=== PATIENT | male | born 1935 | race Caucasian/White ===

== ENCOUNTER 2017-08-27 16:57 | Observation (INO) | payer MEDICARE, BC ==
--- NOTE | 2017-08-27 18:47 | EDM.PDOC ---
ED HPI GENERAL MEDICAL PROBLEM - General Chief Complaint: General Stated Complaint: ACCIDENT [facility]IA [facility] Time Seen by Provider: 08/27/17 18:05 Source of Information: Reports: Patient, EMS, Family History Limitations: Reports: No Limitations - History of Present Illness INITIAL COMMENTS - FREE TEXT/NARRATIVE: 81-year-old male with chronic weakness, worsening with frequent falls and confusion. Today he slipped out of his chair and couldn't get up, his asked him some questions like his birthdate and what day it was and he seemed more confused than usual and more weak so she called the ambulance. He doesn't have any specific complaints and wants to go home but she is worried about taking him home because of his weakness. He just had his pro time checked in the last 48 hours and there was no significant concerns. He denies any nausea or vomiting, shortness of breath, his only physical complaint is his persistent lower extremity edema. He claims he still gets around fine with a walker. Onset: Gradual (According to the his symptoms have been worsening over 3 weeks) Severity: Moderate Associated Symptoms: Reports: Weakness. Denies: Chest Pain, Cough, Fever/Chills , Headaches - Related Data Allergies Allergy/AdvReac Type Severity Reaction Status Date / Time ticlopidine HCl [From Ticlid] Allergy Hives Verified 02/04/16 00:11 atorvastatin calcium AdvReac Muscle Verified 02/04/16 00:11 [From Lipitor] Aches quinapril HCl [From Accupril] AdvReac Cough Verified 02/04/16 00:11 Home Meds: Home Meds Albuterol Sulfate [Proair Hfa] 2 puff IH Q6HR 03/09/13 [History] Furosemide [Lasix] 20 mg PO DAILY 03/09/13 [History] Losartan [Cozaar] 25 mg PO DAILY 03/09/13 [History] Metoprolol Succinate [Toprol XL] 25 mg PO DAILY 03/09/13 [History] Nitroglycerin [Nitrostat] 0.4 mg SL ASDIRECTED 03/09/13 [History] Oxybutynin Chloride [Ditropan Xl] 5 mg PO DAILY 03/09/13 [History] oxyCODONE HCl/Acetaminophen [Percocet 10-325 mg Tablet] 1 tab PO Q6H PRN 01/24/ 16 [History] Aspirin 325 mg PO DAILY 09/16/15 [History] Meclizine [Antivert] 25 mg PO TID PRN 09/16/15 [History] Pantoprazole [ProTONIX] 40 mg PO ACBREAKFAST #30 tab.cr 10/02/15 [Rx] Magnesium Hydroxide [Milk of Magnesia] 30 ml PO BID 02/03/16 [History] Polyethylene Glycol 3350 [MiraLAX] 17 gm PO DAILY 02/03/16 [History] Warfarin [Coumadin] 4 mg PO DAILY 02/04/16 [History] Warfarin [Coumadin] 6 mg PO ASDIRECTED 08/27/17 [History] Past Medical History HEENT History: Reports: Other (See Below) Other HEENT History: pt wears reading glasses Cardiovascular History: Reports: Aneurysm, Bypass, High Cholesterol, Hypertension, [place], Pacemaker, Stents Respiratory History: Reports: Asthma, COPD Gastrointestinal History: Reports: GERD, Hiatal Hernia Genitourinary History: Reports: Renal Disease, Urinary Incontinence Musculoskeletal History: Reports: Back Pain, Chronic, Other (See Below) Other Musculoskeletal History: nerv stimulator implanted in back. Neurological History: Reports: TIA Other Neuro History: new onset of dementia Psychiatric History: Reports: Dementia Other Psychiatric History: states passed all memory tests Endocrine/Metabolic History: Reports: Diabetes, Type II Hematologic History: Reports: None Dermatologic History: Reports: Eczema - Infectious Disease History Infectious Disease History: Reports: Chicken Pox, Measles, Mumps Other Infectious Disease History: unable to obtain at this time - Past Surgical History Cardiovascular Surgical History: Reports: Coronary Artery Bypass Neurological Surgical History: Reports: Vertebroplasty Social & Family History - Family History Family Medical History: Noncontributory Cardiac: Reports: [place] Musculoskeletal: Reports: Arthritis Neurological: Reports: Neuropathy, Diabetic Endocrine/Metabolic: Reports: Diabetes, type II - Tobacco Use Smoking Status *Q: Never Smoker Years of Tobacco use: 25 Packs/Tins Daily: 1 Used Tobacco, but Quit: No Month/Year Tobacco Last Used: 1985 Second Hand Smoke Exposure: Yes - Caffeine Use Caffeine Use: Reports: None - Alcohol Use Days Per Week of Alcohol Use: 7 Number of Drinks Per Day: 1 Total Drinks Per Week: 7 - Recreational Drug Use Recreational Drug Use: No - Living Situation & Occupation Living situation: Reports: Extended Care Facility Occupation: Disabled ED ROS GENERAL - Review of Systems Review Of Systems: See Below Constitutional: Reports: Malaise, Weakness. Denies: Fever, Chills HEENT: Reports: No Symptoms Respiratory: Denies: Cough Cardiovascular: Denies: Chest Pain, Palpitations : Reports: No Symptoms Skin: Reports: Bruising (Patient has lots of bruising on his extremities, especially the arms. Lots of excoriations on the lower legs.) Neurological: Reports: Weakness (Diffuse weakness is present but no asymmetric limb weakness) Psychiatric: Reports: No Symptoms ED EXAM, GENERAL - Physical Exam Exam: See Below Exam Limited By: No Limitations General Appearance: Alert, No Apparent Distress Eye Exam: Bilateral Eye: EOMI Head: Atraumatic Respiratory/Chest: No Respiratory Distress Cardiovascular: Regular Rate, Rhythm GI/Abdominal: Soft, Non-Tender, Other (Somewhat distended appearing abdomen with prominent cutaneous veins. Small asymptomatic umbilical hernia is present) Extremities: Pedal Edema (2+ pitting edema both lower extremities) Neurological: Alert, Oriented Psychiatric: Normal Affect, Normal Mood Skin Exam: Warm, Dry, Other (Numerous bruises on the arms, excoriations on the lower extremities) Course - Vital Signs Last Recorded V/S: Last Vital Signs Temp 97.3 F 08/27/17 21:38 Pulse 61 08/27/17 21:38 Resp 16 08/27/17 21:38 BP 147/63 H 08/27/17 21:38 Pulse Ox 97 08/27/17 21:38 - Orders/Labs/Meds Orders: Active Orders 24 hr Category Date Time Status Head wo Cont [CT] Stat Exams 08/27/17 18:36 Taken UA W/MICROSCOPIC [URIN] Urgent Lab 08/27/17 18:22 Ordered Medication Orders Acetaminophen (Tylenol) 650 mg PO Q4H PRN PRN Reason: Pain (Mild 1-3)/fever Albuterol (Ventolin Hfa) 0 gm INH Q4H PRN PRN Reason: Dyspnea Albuterol/Ipratropium (Duoneb 3.0-0.5 Mg/3 Ml) 3 ml NEB QIDRT MELODY Last Admin: 08/27/17 21:40 Dose: Not Given Aspirin (Ecotrin) 325 mg PO DAILY MELODY Furosemide (Lasix) 40 mg IVPUSH NOW ONE Stop: 08/28/17 08:01 Losartan Potassium (Cozaar) 25 mg PO DAILY MELODY Magnesium Hydroxide (Milk Of Magnesia) 30 ml PO Q12H PRN PRN Reason: Constipation Metoprolol Succinate (Toprol Xl) 25 mg PO DAILY [facility] Ondansetron HCl (Zofran) 4 mg IV Q4H PRN PRN Reason: Nausea/Vomiting Oxybutynin Chloride (Oxybutynin) 2.5 mg PO BID [facility] Oxycodone/Acetaminophen (Percocet 325-10 Mg) 1 tab PO Q6H PRN PRN Reason: Pain Pantoprazole Sodium (Protonix) 40 mg PO ACBREAKFAST [facility] Polyethylene Glycol (Miralax) 17 gm PO DAILY [facility] Senna/Docusate Sodium (Senna Plus) 1 tab PO BID PRN PRN Reason: Constipation Sodium Chloride (Saline Flush) 10 ml FLUSH ASDIRECTED PRN PRN Reason: Keep Vein Open Warfarin Sodium (Coumadin) 4 mg PO DAILY [facility] Labs: Laboratory Tests 08/27/17 08/27/17 08/27/17 Range/Units 18:22 18:27 18:27 WBC 4.0 L (4.5-11.0) K/uL RBC 3.94 L (4.30-5.90) M/uL Hgb 13.8 D (12.0-15.0) g/dL Hct 39.7 L (40.0-54.0) % MCV 101 H (80-98) fL MCH 35 H (27-31) pg MCHC 35 (32-36) % Plt Count 97 L (150-400) K/uL Neut % (Auto) 64 (36-66) % Lymph % (Auto) 22 L (24-44) % [place] % (Auto) 9 H (2-6) % Eos % (Auto) 3 (2-4) % Baso % (Auto) 1 (0-1) % Sodium 144 (140-148) mmol/L Potassium 3.4 L (3.6-5.2) mmol/L Chloride 105 (100-108) mmol/L Carbon Dioxide 26 (21-32) mmol/L Anion Gap 16.4 H (5.0-14.0) mmol/L BUN 17 (7-18) mg/dL Creatinine 1.5 H (0.8-1.3) mg/dL Est Cr Clr Drug Dosing 38.63 mL/min Estimated GFR (MDRD) 45 L (>60) Glucose 83 (74-106) mg/dL Calcium 7.4 L (8.5-10.1) mg/dL Total Bilirubin 1.9 H D (0.2-1.0) mg/dL AST 79 H D (15-37) U/L ALT 43 D (12-78) U/L Alkaline Phosphatase 191 H (46-116) U/L Total Protein 7.2 (6.4-8.2) g/dL Albumin 2.1 L (3.4-5.0) g/dL Globulin 5.1 H (2.3-3.5) g/dL Albumin/Globulin Ratio 0.4 L (1.2-2.2) Urine Color Yellow Urine Appearance Clear Urine pH 5.0 (4.5-8.0) Ur Specific [place] 1.015 (1.008-1.030) Urine Protein Negative (NEGATIVE) mg/dL Urine Glucose (UA) Normal (NEGATIVE) mg/dL Urine Ketones Negative (NEGATIVE) mg/dL Urine Occult Blood Negative (NEGATIVE) Urine Nitrite Negative (NEGAITVE) Urine Bilirubin Negative (NEGATIVE) Urine Urobilinogen 1 (NORMAL) mg/dL Ur Leukocyte Esterase Negative (NEGATIVE) Urine RBC Not seen (0-5) Urine WBC 0-5 (0-5) Ur Epithelial Cells Rare Amorphous Sediment Not seen Urine Bacteria Rare Urine Mucus Not seen Meds: Medications Generic Name Dose Route Start Last Admin Trade Name Freq PRN Reason Stop Dose Admin Acetaminophen 650 mg 08/27/17 21:23 Tylenol PO Q4H PRN Pain (Mild 1-3)/fever Albuterol 0 gm 08/27/17 21:23 Ventolin Hfa INH Q4H PRN Dyspnea Albuterol/Ipratropium 3 ml 08/27/17 21:23 08/27/17 21:40 Duoneb 3.0-0.5 Mg/3 Ml NEB Not Given QIDRT MELODY Aspirin 325 mg 08/28/17 09:00 Ecotrin PO DAILY MELODY Furosemide 40 mg 08/28/17 08:00 Lasix IVPUSH 08/28/17 08:01 NOW ONE Losartan Potassium 25 mg 08/28/17 09:00 Cozaar PO DAILY MELODY Magnesium Hydroxide 30 ml 08/27/17 21:23 Milk Of Magnesia PO Q12H PRN Constipation Metoprolol Succinate 25 mg 08/28/17 09:00 Toprol Xl PO DAILY MELODY Ondansetron HCl 4 mg 08/27/17 21:23 Zofran IV Q4H PRN Nausea/Vomiting Oxybutynin Chloride 2.5 mg 08/27/17 21:45 Oxybutynin PO BID [facility] Oxycodone/Acetaminophen 1 tab 08/27/17 21:23 Percocet 325-10 Mg PO Q6H PRN Pain Pantoprazole Sodium 40 mg 08/28/17 07:30 Protonix PO ACBREAKFAST MELODY Polyethylene Glycol 17 gm 08/28/17 09:00 Miralax PO DAILY MELODY Senna/Docusate Sodium 1 tab 08/27/17 21:23 Senna Plus PO BID PRN Constipation Sodium Chloride 10 ml 08/27/17 21:23 Saline Flush FLUSH ASDIRECTED PRN Keep Vein Open Warfarin Sodium 4 mg 08/28/17 09:00 Coumadin PO DAILY MELODY Discontinued Medications Generic Name Dose Route Start Last Admin Trade Name Freq PRN Reason Stop Dose Admin Potassium Chloride 40 meq 08/27/17 21:23 08/27/17 21:46 Klor-Con M20 PO 08/27/17 21:24 40 meq ONETIME ONE Administration - Re-Assessments/Exams Free Text/Narrative Re-Assessment/Exam: 08/27/17 18:46 The UA was obtained. CBC, CMP and head CT will also be obtained. 08/27/17 20:03 UA was negative. CBC was consistent with past levels, white count was mildly low. Bilirubin was 1.9, other LFTs were mildly elevated as well. Head CT was negative for acute findings. Patient was too weak to get to the bathroom by himself, I do think he needs to be admitted for at least a few days to assess strength and ability to go home. I asked Dr. Bishop to visit with the patient about admission for the next several days for evaluation and treatment of severe weakness. Departure - Departure Time of Disposition: 21:20 Disposition: Admitted As Inpatient 68 Condition: Fair Clinical Impression: Weakness, Elevated LFTs - Discharge Information - My Orders Last 24 Hours: My Active Orders 08/27/17 18:22 UA W/MICROSCOPIC [URIN] Urgent 08/27/17 18:36 Head wo Cont [CT] Stat - Assessment/Plan Last 24 Hours: My Active Orders 08/27/17 18:22 UA W/MICROSCOPIC [URIN] Urgent 08/27/17 18:36 Head wo Cont [CT] Stat
[2017-08-27] MEDS ORDERED: oxyCODONE ER 10 MG TAB.ER PO ONE (19:10)
--- NOTE | 2017-08-27 21:18 | PCM.HP ---
H&P History of Present Illness - General Date of Service: 08/27/17 Admit Problem/Dx: Source of Information: Patient, Old Records, Provider, RN Notes Reviewed History Limitations: Reports: Altered Mental Status (Dementia) - History of Present Illness Initial Comments - Free Text/Narative: This patient is a 81-year-old gentleman who is admitted to observation status because of aggressive weakness and recent falls at home. His reports that he is fallen 3 times this past week and has significant difficulty with transfers and ambulation. He fell for the second time today and she was unable to get him up and called the ambulance for help. During this period of time was noted to be extremely confused but had improved by the time he arrived in the emergency department. Patient denies that he has had significant weakness and reports of these had only one fall this week. He has ongoing difficulty with peripheral edema. He denies recent fevers chills or sweats or any symptoms related to localized infection. He does not want to stay in the hospital but his reports that she is unable to care for him at home. - Related Data Allergies/Adverse Reactions: Allergies Allergy/AdvReac Type Severity Reaction Status Date / Time ticlopidine HCl [From Ticlid] Allergy Hives Verified 02/04/16 00:11 atorvastatin calcium AdvReac Muscle Verified 02/04/16 00:11 [From Lipitor] Aches quinapril HCl [From Accupril] AdvReac Cough Verified 02/04/16 00:11 Home Medications: Home Meds Albuterol Sulfate [Proair Hfa] 2 puff IH Q6HR 03/09/13 [History] Furosemide [Lasix] 20 mg PO DAILY 03/09/13 [History] Losartan [Cozaar] 25 mg PO DAILY 03/09/13 [History] Metoprolol Succinate [Toprol XL] 25 mg PO DAILY 03/09/13 [History] Nitroglycerin [Nitrostat] 0.4 mg SL ASDIRECTED 03/09/13 [History] Oxybutynin Chloride [Ditropan Xl] 5 mg PO DAILY 03/09/13 [History] oxyCODONE HCl/Acetaminophen [Percocet 10-325 mg Tablet] 1 tab PO Q6H PRN [History] Aspirin 325 mg PO DAILY 09/16/15 [History] Meclizine [Antivert] 25 mg PO TID PRN 09/16/15 [History] Pantoprazole [ProTONIX] 40 mg PO ACBREAKFAST #30 tab.cr 10/02/15 [Rx] Magnesium Hydroxide [Milk of Magnesia] 30 ml PO BID 02/03/16 [History] Polyethylene Glycol 3350 [MiraLAX] 17 gm PO DAILY 02/03/16 [History] Warfarin [Coumadin] 4 mg PO DAILY 02/04/16 [History] Warfarin [Coumadin] 6 mg PO ASDIRECTED 08/27/17 [History] Past Medical History HEENT History: Reports: Other (See Below) Other HEENT History: pt wears reading glasses Cardiovascular History: Reports: Aneurysm, Bypass, High Cholesterol, Hypertension, [place], Pacemaker, Stents Respiratory History: Reports: Asthma, COPD Gastrointestinal History: Reports: GERD, Hiatal Hernia Genitourinary History: Reports: Renal Disease, Urinary Incontinence Musculoskeletal History: Reports: Back Pain, Chronic, Other (See Below) Other Musculoskeletal History: nerv stimulator implanted in back. Neurological History: Reports: TIA Other Neuro History: new onset of dementia Psychiatric History: Reports: Dementia Other Psychiatric History: states passed all memory tests Endocrine/Metabolic History: Reports: Diabetes, Type II Hematologic History: Reports: None Dermatologic History: Reports: Eczema - Infectious Disease History Infectious Disease History: Reports: Chicken Pox, Measles, Mumps Other Infectious Disease History: unable to obtain at this time - Past Surgical History Cardiovascular Surgical History: Reports: Coronary Artery Bypass Neurological Surgical History: Reports: Vertebroplasty Social & Family History - Family History Family Medical History: Noncontributory Cardiac: Reports: [place] Musculoskeletal: Reports: Arthritis Neurological: Reports: Neuropathy, Diabetic Endocrine/Metabolic: Reports: Diabetes, type II - Tobacco Use Smoking Status *Q: Never Smoker Years of Tobacco use: 25 Packs/Tins Daily: 1 Used Tobacco, but Quit: No Month/Year Tobacco Last Used: 1985 Second Hand Smoke Exposure: Yes - Caffeine Use Caffeine Use: Reports: None - Alcohol Use Days Per Week of Alcohol Use: 7 Number of Drinks Per Day: 1 Total Drinks Per Week: 7 - Recreational Drug Use Recreational Drug Use: No - Living Situation & Occupation Living situation: Reports: Extended Care Facility Occupation: Disabled H&P Review of Systems - Review of Systems: Review Of Systems: See Below General: Denies: Fever, Chills, Weakness HEENT: Reports: No Symptoms Pulmonary: Reports: No Symptoms Cardiovascular: Reports: Edema. Denies: Chest Pain, Palpitations, Dyspnea on Exertion, Orthopnea, PND, Lightheadedness Gastrointestinal: Reports: No Symptoms Genitourinary: Reports: No Symptoms Musculoskeletal: Reports: No Symptoms Skin: Reports: No Symptoms Psychiatric: Reports: No Symptoms Neurological: Reports: No Symptoms Hematologic/Lymphatic: Reports: No Symptoms Immunologic: Reports: No Symptoms Exam - Exam Exam: See Below - Vital Signs Vital Signs: Last Vital Signs Temp 97.3 F 08/27/17 17:02 Pulse 61 08/27/17 17:02 Resp 15 08/27/17 17:02 BP 145/69 H 08/27/17 17:02 Pulse Ox 96 08/27/17 17:02 Weight: 164 lb - Exam Quality Assessment: DVT Prophylaxis General: Alert, Cooperative HEENT: Conjunctiva Clear, Hearing Intact, Mucosa Moist & [place], Normal Nasal Septum, Posterior Pharynx Clear, Pupils Equal Neck: Supple, Trachea Midline, +2 Carotid Pulse wo Bruit Lungs: Clear to Auscultation, Normal Respiratory Effort Cardiovascular: Regular Rate, Regular Rhythm, Normal S1, Normal S2. No: Systolic Murmur, Diastolic Murmur GI/Abdominal Exam: Soft, Non-Tender, No Organomegaly, No Distention, Hernia ( Umbilical hernia) Back Exam: Normal Inspection, Full Range of Motion Extremities: Non-Tender, Pedal Edema Skin: Warm, Dry Neurological: Cranial Nerves Intact, Strength Equal Bilateral, Normal Speech, Normal Tone, Sensation Intact. No: Focal Deficit Neuro Extensive - Mental Status: Alert, Normal Mood/Affect, Memory Loss-Remote Events, Memory Loss-Recent Events. No: Memory Intact - Patient Data Lab Results Last 24 hrs: Laboratory Results - last 24 hr 08/27/17 08/27/17 08/27/17 Range/Units 18:22 18:27 18:27 WBC 4.0 L (4.5-11.0) K/uL RBC 3.94 L (4.30-5.90) M/uL Hgb 13.8 D (12.0-15.0) g/dL Hct 39.7 L (40.0-54.0) % MCV 101 H (80-98) fL MCH 35 H (27-31) pg MCHC 35 (32-36) % Plt Count 97 L (150-400) K/uL Neut % (Auto) 64 (36-66) % Lymph % (Auto) 22 L (24-44) % [place] % (Auto) 9 H (2-6) % Eos % (Auto) 3 (2-4) % Baso % (Auto) 1 (0-1) % Sodium 144 (140-148) mmol/L Potassium 3.4 L (3.6-5.2) mmol/L Chloride 105 (100-108) mmol/L Carbon Dioxide 26 (21-32) mmol/L Anion Gap 16.4 H (5.0-14.0) mmol/L BUN 17 (7-18) mg/dL Creatinine 1.5 H (0.8-1.3) mg/dL Est Cr Clr Drug Dosing 38.63 mL/min Estimated GFR (MDRD) 45 L (>60) Glucose 83 (74-106) mg/dL Calcium 7.4 L (8.5-10.1) mg/dL Total Bilirubin 1.9 H D (0.2-1.0) mg/dL AST 79 H D (15-37) U/L ALT 43 D (12-78) U/L Alkaline Phosphatase 191 H (46-116) U/L Total Protein 7.2 (6.4-8.2) g/dL Albumin 2.1 L (3.4-5.0) g/dL Globulin 5.1 H (2.3-3.5) g/dL Albumin/Globulin Ratio 0.4 L (1.2-2.2) Urine Color Yellow Urine Appearance Clear Urine pH 5.0 (4.5-8.0) Ur Specific [place] 1.015 (1.008-1.030) Urine Protein Negative (NEGATIVE) mg/dL Urine Glucose (UA) Normal (NEGATIVE) mg/dL Urine Ketones Negative (NEGATIVE) mg/dL Urine Occult Blood Negative (NEGATIVE) Urine Nitrite Negative (NEGAITVE) Urine Bilirubin Negative (NEGATIVE) Urine Urobilinogen 1 (NORMAL) mg/dL Ur Leukocyte Esterase Negative (NEGATIVE) Urine RBC Not seen (0-5) Urine WBC 0-5 (0-5) Ur Epithelial Cells Rare Amorphous Sediment Not seen Urine Bacteria Rare Urine Mucus Not seen Result Diagrams: 08/27/17 18:27 08/27/17 18:27 *Q Meaningful Use (ADM) - VTE *Q VTE Pharmacological Contraindications *Q: High INR Value - VTE Risk Assess *Q Each Risk Factor Represents 1 Point: Swollen Legs, Current Total Score 1 Point Risk Factors: 1 Each Risk Factor Represents 2 Points: None Total Score 2 Point Risk Factors: 0 Each Risk Factor Represents 3 Points: Age 75 Years or Greater Total Score 3 Point Risk Factors: 3 Each Risk Factor Represents 5 Points: None Total Score 5 Point Risk Factors: 0 Venous Thromboembolism Risk Factor Score *Q: 4 Problem List Initiated/Reviewed/Updated: Yes Orders Last 24hrs: Active Orders 24 hr Category Date Time Status Patient Status Manage Transfer [TRANSFER] Routine ADT 08/27/17 20:47 Active Head wo Cont [CT] Stat Exams 08/27/17 18:36 Taken UA W/MICROSCOPIC [URIN] Urgent Lab 08/27/17 18:22 Ordered Resuscitation Status Routine Resus Stat 08/27/17 20:50 Ordered Assessment/Plan Comment:: ASSESSMENT AND PLAN PROGRESSIVE WEAKNESS WITH RECENT FALLS-reported by his , patient denies significant weakness and admits to only one fall this week compared to his ' s report of 3. Nursing staff report that the patient is very unsteady with transfers and ambulation. There is been no evidence of infection on evaluation in the emergency department or significant metabolic abnormality. -Observation admission -physical therapy consult in a.m. CONFUSION-EMS personnel reports that he was very confused when they arrived at the home, he improved by the time he was in the emergency department. -probable underlying dementia PERIPHERAL EDEMA-patient denies that edema is worse than usual -furosemide 40 mg IV in a.m. CHRONIC KIDNEY DISEASE STAGE III -Monitor urine output and renal function during hospital stay LIVER ENZYME ELEVATION -no previous history of chronic liver disease -abdominal ultrasound in a.m. HYPOKALEMIA -oral potassium replacement -recheck potassium in a.m. ORAL ANTICOAGULATION -Continue outpatient dosing of warfarin -INR in a.m. MAINTENANCE ISSUES -DVT prophylaxis; current therapy with warfarin should provide adequate DVT prophylaxis -GI prophylaxis; continue outpatient PPI therapy -Davis catheter; NOT INDICATED -Nutrition;2 g sodium diet -Nicotine dependence; not required CODE STATUS- FULL CODE ADMISSION STATUS-this patient will be admitted to observation status, expect no more than a one night hospital stay for evaluation and management of problems as outlined above. DISPOSITION-anticipate discharge to home after the hospital stay. PRIMARY CARE PROVIDER- Dr. Starr
[2017-08-27] MEDS ORDERED: Ondansetron 4 MG/2 ML SDV IV PRN (21:23)
[2017-08-27] MEDS ORDERED: Acetaminophen/oxyCODONE 325-10 MG Tab PO PRN (21:23)
[2017-08-27] MEDS ORDERED: Sodium Chloride 0.9% 10 ML Syringe FLUSH PRN (21:23)
[2017-08-27] MEDS ORDERED: Albuterol 8 GM Inhaler INH PRN (21:23)
[2017-08-27] MEDS ORDERED: Magnesium Hydroxide 400 MG/5 ML Susp 30 ML Cup PO PRN (21:23)
[2017-08-27] MEDS ORDERED: Potassium Chloride 20 MEQ Tab.ER PO ONE (21:23)
[2017-08-27] MEDS ORDERED: Acetaminophen 325 MG Tab PO PRN (21:23)
[2017-08-27] MEDS: Albuterol/Ipratropium 3.0-0.5 MG/3 ML Neb Soln NEB SCH (21:40)
[2017-08-27] MEDS ORDERED: Oxybutynin 5 MG Tab PO SCH (21:45)
[2017-08-28] MEDS: Albuterol/Ipratropium 3.0-0.5 MG/3 ML Neb Soln NEB SCH ×4 (07:43→22:18)
[2017-08-28] MEDS ORDERED: Furosemide 40 MG/4 ML VIAL IVPUSH ONE (08:00)
[2017-08-28] MEDS ORDERED: Potassium Chloride 40 MEQ in Premix Bag 1 BAG IV ONE (08:21)
[2017-08-28] MEDS ORDERED: Polyethylene Glycol 3350 Powder 238 GM Bot PO SCH (09:00)
[2017-08-28] MEDS ORDERED: Polyethylene Glycol 3350 Powder 17 GM Packet PO SCH (09:00)
--- NOTE | 2017-08-28 09:20 | US ---
Abdomen Ltd HISTORY: Elevated bilirubin COMPARISON: CT scan abdomen pelvis 02/19/2016. FINDINGS: Liver is somewhat difficult to penetrate no obvious mass seen. No intrahepatic bile duct di latation. The gallbladder is been removed. Common bile duct measures 6 mm. Pancreas not well seen due to overlying bowel gas. The right kidney appears normal. There is some ascites mostly in the right u pper quadrant. Inferior vena cava is patent. Impression: Limited exam due to overlying bowel gas difficult to penetrate liver in this patient no obvious acute abnormality. There is a small amount of ascites in the right upper quadrant.
[2017-08-28] MEDS ORDERED: Potassium Chloride 20 MEQ Tab.ER PO ONE ×2 (09:30→18:00)
[2017-08-28] MEDS: Polyethylene Glycol 3350 Powder 17 GM Packet PO SCH ×2 (09:33→10:53)
[2017-08-28] MEDS: Losartan 50 MG Tab PO SCH (09:34)
[2017-08-28] MEDS: Magnesium Oxide 400 MG Tab PO SCH ×2 (09:34→22:17)
[2017-08-28] MEDS: Aspirin 325 MG Tab.EC PO SCH (09:34)
[2017-08-28] MEDS: DITROPAN 5 MG PO SCH (09:35)
[2017-08-28] MEDS: Metoprolol Succinate 25 MG Tab.ER (PTOM) PO SCH (09:35)
[2017-08-28] MEDS: Pantoprazole 40 MG Tab.CR (PTOM) PO SCH (09:36)
[2017-08-28] MEDS: Magnesium Sulfate/Water 2 GM in Premix Bag 1 BAG IV SCH ×2 (09:37→15:56)
[2017-08-28] MEDS: WARFARIN 4 MG PO SCH (12:06)
[2017-08-28] MEDS: Potassium Chloride 20 MEQ, Lidocaine 1% 2 ML in Sodium Chloride 0.9% 100 ML IV SCH ×2 (12:07→14:10)
--- NOTE | 2017-08-28 17:26 | PCM.PN ---
- General Info Date of Service: 08/28/17 Subjective Update: This patient has been stable since admission, afebrile with good vital signs. He has been intermittently confused, but was able to walk with physical therapy. - Review of Systems General: Reports: Weakness. Denies: Fever, Chills Pulmonary: Reports: No Symptoms Cardiovascular: Reports: Edema. Denies: Chest Pain, Palpitations, Dyspnea on Exertion, Orthopnea, PND Gastrointestinal: Reports: No Symptoms - Patient Data Vitals - Most Recent: Last Vital Signs Temp 96.8 F 08/28/17 15:36 Pulse 81 08/28/17 15:36 Resp 16 08/28/17 15:36 BP 131/57 L 08/28/17 15:36 Pulse Ox 95 08/28/17 15:36 Weight - Most Recent: 159 lb 12.8 oz I&O - Last 24 Hours: Intake & Output 08/28/17 08/28/17 08/28/17 06:59 14:59 22:59 Intake Total 660 Output Total 150 400 Balance -150 260 Lab Results Last 24 Hours: Laboratory Results - last 24 hr 08/27/17 08/27/17 08/27/17 Range/Units 18:22 18:27 18:27 WBC 4.0 L (4.5-11.0) K/uL RBC 3.94 L (4.30-5.90) M/uL Hgb 13.8 D (12.0-15.0) g/dL Hct 39.7 L (40.0-54.0) % MCV 101 H (80-98) fL MCH 35 H (27-31) pg MCHC 35 (32-36) % Plt Count 97 L (150-400) K/uL Neut % (Auto) 64 (36-66) % Lymph % (Auto) 22 L (24-44) % [place] % (Auto) 9 H (2-6) % Eos % (Auto) 3 (2-4) % Baso % (Auto) 1 (0-1) % PT (9.5-12.0) sec INR (0.80-1.20) Sodium 144 (140-148) mmol/L Potassium 3.4 L (3.6-5.2) mmol/L Chloride 105 (100-108) mmol/L Carbon Dioxide 26 (21-32) mmol/L Anion Gap 16.4 H (5.0-14.0) mmol/L BUN 17 (7-18) mg/dL Creatinine 1.5 H (0.8-1.3) mg/dL Est Cr Clr Drug Dosing 38.63 mL/min Estimated GFR (MDRD) 45 L (>60) Glucose 83 (74-106) mg/dL Calcium 7.4 L (8.5-10.1) mg/dL Magnesium (1.8-2.4) mg/dL Total Bilirubin 1.9 H D (0.2-1.0) mg/dL AST 79 H D (15-37) U/L ALT 43 D (12-78) U/L Alkaline Phosphatase 191 H (46-116) U/L Ammonia (11-32) mmol/L Total Protein 7.2 (6.4-8.2) g/dL Albumin 2.1 L (3.4-5.0) g/dL Globulin 5.1 H (2.3-3.5) g/dL Albumin/Globulin Ratio 0.4 L (1.2-2.2) Urine Color Yellow Urine Appearance Clear Urine pH 5.0 (4.5-8.0) Ur Specific [place] 1.015 (1.008-1.030) Urine Protein Negative (NEGATIVE) mg/dL Urine Glucose (UA) Normal (NEGATIVE) mg/dL Urine Ketones Negative (NEGATIVE) mg/dL Urine Occult Blood Negative (NEGATIVE) Urine Nitrite Negative (NEGAITVE) Urine Bilirubin Negative (NEGATIVE) Urine Urobilinogen 1 (NORMAL) mg/dL Ur Leukocyte Esterase Negative (NEGATIVE) Urine RBC Not seen (0-5) Urine WBC 0-5 (0-5) Ur Epithelial Cells Rare Amorphous Sediment Not seen Urine Bacteria Rare Urine Mucus Not seen 08/28/17 08/28/17 08/28/17 Range/Units 04:30 04:30 04:30 WBC 2.4 L (4.5-11.0) K/uL RBC 3.48 L (4.30-5.90) M/uL Hgb 11.7 L D (12.0-15.0) g/dL Hct 35.2 L (40.0-54.0) % MCV 101 H (80-98) fL MCH 34 H (27-31) pg MCHC 33 (32-36) % Plt Count 67 L (150-400) K/uL Neut % (Auto) 54 (36-66) % Lymph % (Auto) 31 (24-44) % [place] % (Auto) 9 H (2-6) % Eos % (Auto) 5 H (2-4) % Baso % (Auto) 2 H (0-1) % PT 22.7 H (9.5-12.0) sec INR 2.06 H D (0.80-1.20) Sodium 142 (140-148) mmol/L Potassium 3.0 L (3.6-5.2) mmol/L Chloride 108 (100-108) mmol/L Carbon Dioxide 29 (21-32) mmol/L Anion Gap 8.0 (5.0-14.0) mmol/L BUN 15 (7-18) mg/dL Creatinine 1.4 H (0.8-1.3) mg/dL Est Cr Clr Drug Dosing 41.39 mL/min Estimated GFR (MDRD) 49 L (>60) Glucose 110 H (74-106) mg/dL Calcium 6.9 L* (8.5-10.1) mg/dL Magnesium 1.3 L (1.8-2.4) mg/dL Total Bilirubin 1.3 H (0.2-1.0) mg/dL AST 65 H (15-37) U/L ALT 35 (12-78) U/L Alkaline Phosphatase 163 H (46-116) U/L Ammonia (11-32) mmol/L Total Protein 6.1 L (6.4-8.2) g/dL Albumin 1.7 L (3.4-5.0) g/dL Globulin 4.4 H (2.3-3.5) g/dL Albumin/Globulin Ratio 0.4 L (1.2-2.2) Urine Color Urine Appearance Urine pH (4.5-8.0) Ur Specific [place] (1.008-1.030) Urine Protein (NEGATIVE) mg/dL Urine Glucose (UA) (NEGATIVE) mg/dL Urine Ketones (NEGATIVE) mg/dL Urine Occult Blood (NEGATIVE) Urine Nitrite (NEGAITVE) Urine Bilirubin (NEGATIVE) Urine Urobilinogen (NORMAL) mg/dL Ur Leukocyte Esterase (NEGATIVE) Urine RBC (0-5) Urine WBC (0-5) Ur Epithelial Cells Amorphous Sediment Urine Bacteria Urine Mucus 08/28/17 Range/Units 04:30 WBC (4.5-11.0) K/uL RBC (4.30-5.90) M/uL Hgb (12.0-15.0) g/dL Hct (40.0-54.0) % MCV (80-98) fL MCH (27-31) pg MCHC (32-36) % Plt Count (150-400) K/uL Neut % (Auto) (36-66) % Lymph % (Auto) (24-44) % [place] % (Auto) (2-6) % Eos % (Auto) (2-4) % Baso % (Auto) (0-1) % PT (9.5-12.0) sec INR (0.80-1.20) Sodium (140-148) mmol/L Potassium (3.6-5.2) mmol/L Chloride (100-108) mmol/L Carbon Dioxide (21-32) mmol/L Anion Gap (5.0-14.0) mmol/L BUN (7-18) mg/dL Creatinine (0.8-1.3) mg/dL Est Cr Clr Drug Dosing mL/min Estimated GFR (MDRD) (>60) Glucose (74-106) mg/dL Calcium (8.5-10.1) mg/dL Magnesium (1.8-2.4) mg/dL Total Bilirubin (0.2-1.0) mg/dL AST (15-37) U/L ALT (12-78) U/L Alkaline Phosphatase (46-116) U/L Ammonia 47 H (11-32) mmol/L Total Protein (6.4-8.2) g/dL Albumin (3.4-5.0) g/dL Globulin (2.3-3.5) g/dL Albumin/Globulin Ratio (1.2-2.2) Urine Color Urine Appearance Urine pH (4.5-8.0) Ur Specific [place] (1.008-1.030) Urine Protein (NEGATIVE) mg/dL Urine Glucose (UA) (NEGATIVE) mg/dL Urine Ketones (NEGATIVE) mg/dL Urine Occult Blood (NEGATIVE) Urine Nitrite (NEGAITVE) Urine Bilirubin (NEGATIVE) Urine Urobilinogen (NORMAL) mg/dL Ur Leukocyte Esterase (NEGATIVE) Urine RBC (0-5) Urine WBC (0-5) Ur Epithelial Cells Amorphous Sediment Urine Bacteria Urine Mucus Med Orders - Current: Current Medications Acetaminophen (Tylenol) 650 mg PO Q4H PRN PRN Reason: Pain (Mild 1-3)/fever Albuterol (Ventolin Hfa) 0 gm INH Q4H PRN PRN Reason: Dyspnea Albuterol/Ipratropium (Duoneb 3.0-0.5 Mg/3 Ml) 3 ml NEB QIDRT [facility] Last Admin: 08/28/17 14:35 Dose: 3 ml Aspirin (Ecotrin) 325 mg PO DAILY [facility] Last Admin: 08/28/17 09:34 Dose: 325 mg Losartan Potassium (Cozaar) 25 mg PO DAILY [facility] Last Admin: 08/28/17 09:34 Dose: 25 mg Magnesium Hydroxide (Milk Of Magnesia) 30 ml PO Q12H PRN PRN Reason: Constipation Magnesium Oxide (Magnesium Oxide) 400 mg PO BID [facility] Last Admin: 08/28/17 09:34 Dose: 400 mg Metoprolol Succinate (Toprol Xl) 25 mg PO DAILY [facility] Last Admin: 08/28/17 09:35 Dose: 25 mg Ondansetron HCl (Zofran) 4 mg IV Q4H PRN PRN Reason: Nausea/Vomiting Oxycodone/Acetaminophen (Percocet 325-10 Mg) 1 tab PO Q6H PRN PRN Reason: Pain Pantoprazole Sodium (Protonix) 40 mg PO ACBREAKFAST [facility] Last Admin: 08/28/17 09:36 Dose: 40 mg Ditropan Xl 5 Mg ((Ptom)) 1 each PO DAILY [facility] Last Admin: 08/28/17 09:35 Dose: 1 each Warfarin 4mg (Ptom) 0 each PO DAILY@1300 [facility] Last Admin: 08/28/17 12:06 Dose: 1 each Polyethylene Glycol (Miralax) 17 gm PO DAILY [facility] Last Admin: 08/28/17 10:53 Dose: Not Given Senna/Docusate Sodium (Senna Plus) 1 tab PO BID PRN PRN Reason: Constipation Sodium Chloride (Saline Flush) 10 ml FLUSH ASDIRECTED PRN PRN Reason: Keep Vein Open Discontinued Medications Furosemide (Lasix) 40 mg IVPUSH NOW ONE Stop: 08/28/17 08:01 Last Admin: 08/28/17 09:33 Dose: 40 mg Magnesium Sulfate 2 gm/ Premix 50 mls @ 25 mls/hr IV Q6H [facility] Stop: 08/28/17 16:59 Last Admin: 08/28/17 15:56 Dose: 25 mls/hr Potassium Chloride 20 meq/Lidocaine HCl 2 ml/ Sodium Chloride 112 mls @ 56 mls/ hr IV Q2H [facility] Stop: 08/28/17 14:59 Last Admin: 08/28/17 14:10 Dose: 56 mls/hr Oxybutynin Chloride (Oxybutynin) 2.5 mg PO BID [facility] Last Admin: 08/27/17 22:45 Dose: 2.5 mg Potassium Chloride (Klor-Con M20) 40 meq PO ONETIME ONE Stop: 08/27/17 21:24 Last Admin: 08/27/17 21:46 Dose: 40 meq Potassium Chloride (Klor-Con M20) 40 meq PO ONETIME ONE Stop: 08/28/17 09:31 Last Admin: 08/28/17 09:33 Dose: 40 meq - Exam Quality Assessment: DVT Prophylaxis General: Alert, Cooperative, No Acute Distress Lungs: Clear to Auscultation, Normal Respiratory Effort Cardiovascular: Regular Rate, Irregular Rhythm, Murmurs GI/Abdominal Exam: Soft, Non-Tender, No Organomegaly, No Distention Extremities: Non-Tender, Pedal Edema Skin: Warm, Dry - Problem List Review Problem List Initiated/Reviewed/Updated: Yes - My Orders Last 24 Hours: My Active Orders 08/27/17 20:50 Resuscitation Status Routine 08/27/17 21:23 Patient Status [ADT] Routine Ambulate [RC] QID Height and Weight [RC] 0500 Intake and Output [RC] QSHIFT Notify Provider Vital Signs [RC] ASDIRECTED Oxygen Therapy [RC] PRN RT Aerosol Therapy [RC] ASDIRECTED Up With Assistance [RC] ASDIRECTED Up to Chair [RC] QID VTE/DVT Education [RC] Per Unit Routine Vital Signs [RC] Q4H PT Evaluation and Treatment [CONS] Routine Acetaminophen [Tylenol] 650 mg PO Q4H PRN Acetaminophen/oxyCODONE [Percocet 325-10 MG] 1 tab PO Q6H PRN Albuterol [Ventolin HFA] 0 gm INH Q4H PRN Albuterol/Ipratropium [DuoNeb 3.0-0.5 MG/3 ML] 3 ml NEB QIDRT Docusate Sodium/Sennosides [Senna Plus] 1 tab PO BID PRN Magnesium Hydroxide [Milk of Magnesia] 30 ml PO Q12H PRN Ondansetron [Zofran] 4 mg IV Q4H PRN Sodium Chloride 0.9% [Saline Flush] 10 ml FLUSH ASDIRECTED PRN Saline Lock Insert [OM.PC] Routine VTE Pharmacological Contraindications [AST] Per Unit Routine 08/28/17 01:59 Assess Discharge Needs [OM.PC] Routine 08/28/17 02:00 PT Screening [OM.PC] Routine 08/28/17 07:30 Pantoprazole [ProTONIX] 40 mg PO ACBREAKFAST 08/28/17 09:00 Aspirin [Ecotrin] 325 mg PO DAILY Losartan [Cozaar] 25 mg PO DAILY Magnesium Oxide 400 mg PO BID Metoprolol Succinate [Toprol XL] 25 mg PO DAILY Patient's Own Medication [Ptom] 1 each PO DAILY Polyethylene Glycol 3350 [MiraLAX] 17 gm PO DAILY 08/28/17 13:00 Patient's Own Medication [Ptom] 0 each PO DAILY@1300 08/28/17 17:19 Potassium Chloride [Klor-Con M20] 40 meq PO ONETIME ONE 08/29/17 05:00 BASIC METABOLIC PANEL,BMP [CHEM] Timed CBC WITH AUTO DIFF [HEME] Timed INR,PT,PROTHROMBIN TIME [COAG] Timed 08/29/17 08:00 Furosemide [Lasix] 40 mg IVPUSH NOW ONE - Plan Plan:: ASSESSMENT AND PLAN PROGRESSIVE WEAKNESS WITH RECENT FALLS-stable since admission, was able to do somewhat better with ambulation this morning with physical therapy -Observation admission -physical therapy follow-up CONFUSION-intermittently confused since admission -probable underlying dementia PERIPHERAL EDEMA-patient denies that edema is worse than usual -furosemide 40 mg IV in a.m. CHRONIC KIDNEY DISEASE STAGE III -Monitor urine output and renal function during hospital stay LIVER ENZYME ELEVATION -no previous history of chronic liver disease -abdominal ultrasound in a.m. HYPOKALEMIA -oral potassium replacement -recheck potassium in a.m. ORAL ANTICOAGULATION-INR this morning was within therapeutic range -Continue outpatient dosing of warfarin -INR in a.m. MAINTENANCE ISSUES -DVT prophylaxis; current therapy with warfarin should provide adequate DVT prophylaxis -GI prophylaxis; continue outpatient PPI therapy -Davis catheter; NOT INDICATED -Nutrition;2 g sodium diet -Nicotine dependence; not required CODE STATUS- FULL CODE ADMISSION STATUS-this patient will be admitted to observation status, expect no more than a one night hospital stay for evaluation and management of problems as outlined above. DISPOSITION-anticipate discharge to home after the hospital stay. PRIMARY CARE PROVIDER- Dr. Starr
[2017-08-29] MEDS: Albuterol/Ipratropium 3.0-0.5 MG/3 ML Neb Soln NEB SCH ×2 (07:31→11:09)
[2017-08-29] MEDS: Pantoprazole 40 MG Tab.CR (PTOM) PO SCH (07:33)
[2017-08-29] MEDS ORDERED: Furosemide 40 MG/4 ML VIAL IVPUSH ONE (08:00)
[2017-08-29] MEDS: Losartan 50 MG Tab PO SCH (08:22)
[2017-08-29] MEDS: Aspirin 325 MG Tab.EC PO SCH (08:23)
[2017-08-29] MEDS: Magnesium Oxide 400 MG Tab PO SCH (08:23)
[2017-08-29] MEDS: DITROPAN 5 MG PO SCH (08:24)
[2017-08-29] MEDS: Polyethylene Glycol 3350 Powder 17 GM Packet PO SCH (08:24)
[2017-08-29] MEDS: Metoprolol Succinate 25 MG Tab.ER (PTOM) PO SCH (08:25)
--- NOTE | 2017-08-29 11:04 | PCM.DCSUM1 ---
Discharge Summary - Hospital Course Brief History: This patient is a 81-year-old gentleman who was admitted to observation status through the emergency department because of progressive weakness with increased falls at home and increase in peripheral edema. - Discharge Data Discharge Date: 08/29/17 Discharge Disposition: Home, W Home Health Agency 06 Condition: Fair - Discharge Diagnosis/Problem(s) (1) Edema SNOMED Code(s): 898369905, 639023317 ICD Code: R60.9 - EDEMA, UNSPECIFIED Status: Acute Current Visit: Yes (2) Elevated LFTs SNOMED Code(s): 791731068, 274614699 ICD Code: R79.89 - OTHER SPECIFIED ABNORMAL FINDINGS OF BLOOD CHEMISTRY Status: Acute Current Visit: Yes (3) Chronic kidney disease stage 3 SNOMED Code(s): 416637798 ICD Code: N18.3 - CHRONIC KIDNEY DISEASE, STAGE 3 (MODERATE) Status: Chronic Current Visit: No (4) Diabetes mellitus type II, controlled SNOMED Code(s): 75422682 ICD Code: E11.9 - TYPE 2 DIABETES MELLITUS WITHOUT COMPLICATIONS Status: Chronic Current Visit: No Qualifiers: Diabetes mellitus regional intermodal truck driver insulin use: without regional intermodal truck driver use Diabetes mellitus complication status: with kidney complications Diabetes mellitus complication detail: with chronic kidney disease Chronic kidney disease stage : stage 3 (moderate) Qualified Code(s): E11.22 - Type 2 diabetes mellitus with diabetic chronic kidney disease; N18.3 - Chronic kidney disease, stage 3 ( moderate) (5) Dementia SNOMED Code(s): 38793018 ICD Code: F03.90 - UNSPECIFIED DEMENTIA WITHOUT BEHAVIORAL DISTURBANCE Status: Chronic Current Visit: No (6) Chronic atrial fibrillation SNOMED Code(s): 276680016 ICD Code: I48.2 - CHRONIC ATRIAL FIBRILLATION Status: Chronic Current Visit: No - Patient Summary/Data Consults: Consultations 08/27/17 21:23 PT Evaluation and Treatment [CONS] Routine Please Evaluate and Treat. PT Reason for Consult: Weakness, recent falls This query below is only for informational purposes and is not editable. Hospital Course: This patient is a 81-year-old gentleman who is admitted to observation status because of progressive weakness and recent falls at home. His reports that he is fallen 3 times this past week and has significant difficulty with transfers and ambulation. He fell for the second time today and she was unable to get him up and called the ambulance for help. During this period of time was noted to be extremely confused but had improved by the time he arrived in the emergency department. Patient denies that he has had significant weakness and reports he had only one fall this week. He has ongoing difficulty with peripheral edema. He denies recent fevers chills or sweats or any symptoms related to localized infection. He does not want to stay in the hospital but his reports that she is unable to care for him at home. The day after admission he was seen and evaluated by physical therapy, he was felt to be safe with transfers and ambulation with standby assistance. He was given IV furosemide on the day after admission and on the day of discharge with good improvement in his peripheral edema. Edema had not totally resolved but was significantly improved. INR level was checked daily and remained within therapeutic range during hospitalization. He had low potassium and did receive supplemental potassium, on the day of discharge potassium level was noted be elevated but was repeated and found to be within normal range. After discussion about disposition patient and his decided that he could return home with assistance of home care including physical therapy and occupational therapy to regain strength. Activity will be as tolerated and he's encouraged to follow a strict 2 g sodium diet. Follow-up appointment will be scheduled with his primary care provider Dr. Saldana within one week - Patient Instructions Diet: Low Sodium Activity: As Tolerated Other/Special Instructions: Please schedule follow-up appointment with primary care provider within one week. Please arrange for home care after discharge including home physical therapy and occupational therapy. - Discharge Plan Prescriptions/Med Rec: Furosemide 40 mg PO DAILY #30 tablet Home Medications: Home Meds Albuterol Sulfate [Proair Hfa] 2 puff IH Q6HR 03/09/13 [History] Losartan [Cozaar] 25 mg PO DAILY 03/09/13 [History] Metoprolol Succinate [Toprol XL] 25 mg PO DAILY 03/09/13 [History] Nitroglycerin [Nitrostat] 0.4 mg SL ASDIRECTED 03/09/13 [History] Oxybutynin Chloride [Ditropan Xl] 5 mg PO DAILY 03/09/13 [History] oxyCODONE HCl/Acetaminophen [Percocet 10-325 mg Tablet] 1 tab PO Q6H PRN [History] Aspirin 325 mg PO DAILY 09/16/15 [History] Meclizine [Antivert] 25 mg PO TID PRN 09/16/15 [History] Pantoprazole [ProTONIX] 40 mg PO ACBREAKFAST #30 tab.cr 10/02/15 [Rx] Magnesium Hydroxide [Milk of Magnesia] 30 ml PO BID 02/03/16 [History] Polyethylene Glycol 3350 [MiraLAX] 17 gm PO DAILY 02/03/16 [History] Warfarin [Coumadin] 4 mg PO DAILY 02/04/16 [History] Warfarin [Coumadin] 6 mg PO ASDIRECTED 08/27/17 [History] Furosemide 40 mg PO DAILY #30 tablet 08/29/17 [Rx] Referrals: Vinay Starr MD [Physician] - 09/02/17 1:00 pm - Discharge Summary/Plan Comment DC Time >30 min.: No - Patient Data Vitals - Most Recent: Last Vital Signs Temp 96.9 F 08/29/17 07:55 Pulse 67 08/29/17 08:25 Resp 18 08/29/17 07:55 BP 120/58 L 08/29/17 08:25 Pulse Ox 96 08/29/17 07:55 Weight - Most Recent: 159 lb 1.6 oz I&O - Last 24 hours: Intake & Output 08/28/17 08/29/17 08/29/17 22:59 06:59 14:59 Intake Total 360 360 Balance 360 360 Lab Results - Last 24 hrs: Laboratory Results - last 24 hr 08/29/17 08/29/17 08/29/17 Range/Units 05:45 05:45 05:45 WBC 2.8 L (4.5-11.0) K/uL RBC 3.37 L (4.30-5.90) M/uL Hgb 11.4 L (12.0-15.0) g/dL Hct 34.4 L (40.0-54.0) % MCV 102 H (80-98) fL MCH 34 H (27-31) pg MCHC 33 (32-36) % Plt Count 65 L (150-400) K/uL Neut % (Auto) 56 (36-66) % Lymph % (Auto) 27 (24-44) % [place] % (Auto) 11 H (2-6) % Eos % (Auto) 5 H (2-4) % Baso % (Auto) 1 (0-1) % PT 25.4 H (9.5-12.0) sec INR 2.29 H (0.80-1.20) Sodium 142 (140-148) mmol/L Potassium 5.8 H (3.6-5.2) mmol/L Chloride 109 H (100-108) mmol/L Carbon Dioxide 31 (21-32) mmol/L Anion Gap 7.8 (5.0-14.0) mmol/L BUN 15 (7-18) mg/dL Creatinine 1.4 H (0.8-1.3) mg/dL Est Cr Clr Drug Dosing 41.55 mL/min Estimated GFR (MDRD) 49 L (>60) Glucose 131 H (74-106) mg/dL Calcium 7.2 L (8.5-10.1) mg/dL 08/29/17 Range/Units 08:52 WBC (4.5-11.0) K/uL RBC (4.30-5.90) M/uL Hgb (12.0-15.0) g/dL Hct (40.0-54.0) % MCV (80-98) fL MCH (27-31) pg MCHC (32-36) % Plt Count (150-400) K/uL Neut % (Auto) (36-66) % Lymph % (Auto) (24-44) % [place] % (Auto) (2-6) % Eos % (Auto) (2-4) % Baso % (Auto) (0-1) % PT (9.5-12.0) sec INR (0.80-1.20) Sodium (140-148) mmol/L Potassium 5.2 (3.6-5.2) mmol/L Chloride (100-108) mmol/L Carbon Dioxide (21-32) mmol/L Anion Gap (5.0-14.0) mmol/L BUN (7-18) mg/dL Creatinine (0.8-1.3) mg/dL Est Cr Clr Drug Dosing mL/min Estimated GFR (MDRD) (>60) Glucose (74-106) mg/dL Calcium (8.5-10.1) mg/dL Med Orders - Current: Current Medications Acetaminophen (Tylenol) 650 mg PO Q4H PRN PRN Reason: Pain (Mild 1-3)/fever Albuterol (Ventolin Hfa) 0 gm INH Q4H PRN PRN Reason: Dyspnea Albuterol/Ipratropium (Duoneb 3.0-0.5 Mg/3 Ml) 3 ml NEB QIDRT [facility] Last Admin: 08/29/17 07:31 Dose: 3 ml Aspirin (Ecotrin) 325 mg PO DAILY [facility] Last Admin: 08/29/17 08:23 Dose: 325 mg Losartan Potassium (Cozaar) 25 mg PO DAILY [facility] Last Admin: 08/29/17 08:22 Dose: 25 mg Magnesium Hydroxide (Milk Of Magnesia) 30 ml PO Q12H PRN PRN Reason: Constipation Magnesium Oxide (Magnesium Oxide) 400 mg PO BID [facility] Last Admin: 08/29/17 08:23 Dose: 400 mg Metoprolol Succinate (Toprol Xl) 25 mg PO DAILY [facility] Last Admin: 08/29/17 08:25 Dose: 25 mg Ondansetron HCl (Zofran) 4 mg IV Q4H PRN PRN Reason: Nausea/Vomiting Oxycodone/Acetaminophen (Percocet 325-10 Mg) 1 tab PO Q6H PRN PRN Reason: Pain Pantoprazole Sodium (Protonix) 40 mg PO ACBREAKFAST [facility] Last Admin: 08/29/17 07:33 Dose: 40 mg Ditropan Xl 5 Mg ((Ptom)) 1 each PO DAILY [facility] Last Admin: 08/29/17 08:24 Dose: 1 each Warfarin 4mg (Ptom) 0 each PO DAILY@1300 [facility] Last Admin: 08/28/17 12:06 Dose: 1 each Polyethylene Glycol (Miralax) 17 gm PO DAILY [facility] Last Admin: 08/29/17 08:24 Dose: Not Given Senna/Docusate Sodium (Senna Plus) 1 tab PO BID PRN PRN Reason: Constipation Sodium Chloride (Saline Flush) 10 ml FLUSH ASDIRECTED PRN PRN Reason: Keep Vein Open Discontinued Medications Furosemide (Lasix) 40 mg IVPUSH NOW ONE Stop: 08/28/17 08:01 Last Admin: 08/28/17 09:33 Dose: 40 mg Furosemide (Lasix) 40 mg IVPUSH NOW ONE Stop: 08/29/17 08:01 Last Admin: 08/29/17 07:34 Dose: 40 mg Magnesium Sulfate 2 gm/ Premix 50 mls @ 25 mls/hr IV Q6H [facility] Stop: 08/28/17 16:59 Last Admin: 08/28/17 15:56 Dose: 25 mls/hr Potassium Chloride 20 meq/Lidocaine HCl 2 ml/ Sodium Chloride 112 mls @ 56 mls/ hr IV Q2H [facility] Stop: 08/28/17 14:59 Last Admin: 08/28/17 14:10 Dose: 56 mls/hr Oxybutynin Chloride (Oxybutynin) 2.5 mg PO BID [facility] Last Admin: 08/27/17 22:45 Dose: 2.5 mg Potassium Chloride (Klor-Con M20) 40 meq PO ONETIME ONE Stop: 08/27/17 21:24 Last Admin: 08/27/17 21:46 Dose: 40 meq Potassium Chloride (Klor-Con M20) 40 meq PO ONETIME ONE Stop: 08/28/17 09:31 Last Admin: 08/28/17 09:33 Dose: 40 meq Potassium Chloride (Klor-Con M20) 40 meq PO ONETIME ONE Stop: 08/28/17 18:01 Last Admin: 08/28/17 18:33 Dose: 40 meq - Exam Quality Assessment: Reports: DVT Prophylaxis General: Reports: Alert, Cooperative, No Acute Distress. Denies: Oriented Lungs: Reports: Clear to Auscultation, Normal Respiratory Effort Cardiovascular: Reports: Regular Rate, Regular Rhythm, Murmurs GI/Abdominal Exam: Soft, Non-Tender, No Organomegaly, No Distention Extremities: Non-Tender, Pedal Edema Skin: Reports: Warm, Dry, Intact *Q Meaningful Use (DIS) - VTE *Q VTE Pharmacological Contraindications *Q: High INR Value
[2017-08-29 11:21] VITALS: BP 132/56
[2017-08-29] MEDS: WARFARIN 4 MG PO SCH (12:10)
== END 2017-08-29 12:21 | disposition home health service (06) ==
LOC: JP.ED 16:57 → JP.MS 20:47
PROVIDERS: ADMIT Hospitalist; ATTEND Hospitalist
DX: R60.9 Edema, unspecified (principal); R79.89 Other specified abnormal findings of blood chemistry; E11.22 Type 2 diabetes mellitus with diabetic chronic kidney disease; N18.3 Chronic kidney disease, stage 3 (moderate); F03.90 Unspecified dementia, unspecified severity, without behavioral disturbance, psychotic disturbance, mood disturbance, and anxiety; I48.2 Chronic atrial fibrillation; Z79.82 Long term (current) use of aspirin; Z79.01 Long term (current) use of anticoagulants; Z79.899 Other long term (current) drug therapy
CPT/HCPCS: 36415; 70450; 76705; 80048; 80053; 81001; 82140; 83735; 84132; 85025; 85610; 94640; 97110; 97162; 97165; 97530; 99285; A9270; J1940; J3475; J3480; J7030; J7620; 96365; 96366; 96367; 96375; 96376; G0378

== ENCOUNTER 2017-08-29 19:45 | Emergency (ER) | payer MEDICARE, BC ==
[2017-08-29 19:57] VITALS: BP 148/68
--- NOTE | 2017-08-29 20:43 | EDM.PDOC ---
ED HPI GENERAL MEDICAL PROBLEM - General Chief Complaint: General Stated Complaint: MEDICAL [facility]IA [facility] Time Seen by Provider: 08/29/17 20:25 Source of Information: Reports: Patient, EMS, Old Records, RN History Limitations: Reports: Other ( not here, patient has mild dementia) - History of Present Illness INITIAL COMMENTS - FREE TEXT/NARRATIVE: 81 yo male arrives via EMS tonight from his home due to a fall without injury and weakness. After the fall was unable to get up again. Went home earlier today from our hospital after an admission for the same. Was evaluated by PT and was felt safe to go home with home care services, unfortunately they were not able to get to the home until Thursday. Rob denies any pain or fever or SOB. Says he has been eating OK. His was reluctant to take him home from the hospital as she felt she could not care for him, but patient was adamant that he was going home. reports via phone that he is weaker and more confused today. Onset: Today Onset Date: 08/29/17 Duration: Hour(s): Location: Reports: Generalized (weakness) Quality: Reports: Other (no pain) Severity: Moderate Improves with: Reports: None Worsens with: Reports: Other (unknown) Context: Reports: Other (chronic weakness, discussions underway regarding [facility] placement.) Associated Symptoms: Reports: Weakness Treatments MECHANICAL MAINTENANCE: Reports: Other (see below) (none) - Related Data Allergies Allergy/AdvReac Type Severity Reaction Status Date / Time ticlopidine HCl [From Ticlid] Allergy Hives Verified 02/04/16 00:11 atorvastatin calcium AdvReac Muscle Verified 02/04/16 00:11 [From Lipitor] Aches quinapril HCl [From Accupril] AdvReac Cough Verified 02/04/16 00:11 Home Meds: Home Meds Albuterol Sulfate [Proair Hfa] 2 puff IH Q6HR 03/09/13 [History] Losartan [Cozaar] 25 mg PO DAILY 03/09/13 [History] Metoprolol Succinate [Toprol XL] 25 mg PO DAILY 03/09/13 [History] Nitroglycerin [Nitrostat] 0.4 mg SL ASDIRECTED 03/09/13 [History] Oxybutynin Chloride [Ditropan Xl] 5 mg PO DAILY 03/09/13 [History] oxyCODONE HCl/Acetaminophen [Percocet 10-325 mg Tablet] 1 tab PO Q6H PRN [History] Aspirin 325 mg PO DAILY 09/16/15 [History] Meclizine [Antivert] 25 mg PO TID PRN 09/16/15 [History] Pantoprazole [ProTONIX] 40 mg PO ACBREAKFAST #30 tab.cr 10/02/15 [Rx] Magnesium Hydroxide [Milk of Magnesia] 30 ml PO BID 02/03/16 [History] Polyethylene Glycol 3350 [MiraLAX] 17 gm PO DAILY 02/03/16 [History] Warfarin [Coumadin] 4 mg PO DAILY 02/04/16 [History] Past Medical History HEENT History: Reports: Other (See Below) Other HEENT History: pt wears reading glasses Cardiovascular History: Reports: Aneurysm, Bypass, High Cholesterol, Hypertension, [place], Pacemaker, Stents Respiratory History: Reports: Asthma, COPD Gastrointestinal History: Reports: GERD, Hiatal Hernia Genitourinary History: Reports: Renal Disease, Urinary Incontinence Musculoskeletal History: Reports: Back Pain, Chronic, Other (See Below) Other Musculoskeletal History: nerv stimulator implanted in back. Neurological History: Reports: TIA Other Neuro History: new onset of dementia Psychiatric History: Reports: Dementia Other Psychiatric History: states passed all memory tests - today unable to tell me where he is. does not know time of day - season of year. does not know who the president is. he does know who he is and his month and year of Endocrine/Metabolic History: Reports: Diabetes, Type II Hematologic History: Reports: None Dermatologic History: Reports: Eczema - Infectious Disease History Infectious Disease History: Reports: Chicken Pox, Measles, Mumps Other Infectious Disease History: unable to obtain at this time - Past Surgical History Cardiovascular Surgical History: Reports: Coronary Artery Bypass Neurological Surgical History: Reports: Vertebroplasty Social & Family History - Family History Family Medical History: Noncontributory Cardiac: Reports: [place] Musculoskeletal: Reports: Arthritis Neurological: Reports: Neuropathy, Diabetic Endocrine/Metabolic: Reports: Diabetes, type II - Tobacco Use Smoking Status *Q: Former Smoker Years of Tobacco use: 25 Packs/Tins Daily: 1 Used Tobacco, but Quit: Yes Month/Year Tobacco Last Used: october Second Hand Smoke Exposure: Yes - Caffeine Use Caffeine Use: Reports: None - Alcohol Use Days Per Week of Alcohol Use: 7 Number of Drinks Per Day: 1 Total Drinks Per Week: 7 - Recreational Drug Use Recreational Drug Use: No - Living Situation & Occupation Living situation: Reports: Extended Care Facility Occupation: Disabled ED ROS GENERAL - Review of Systems Review Of Systems: See Below Constitutional: Reports: Weakness HEENT: Reports: No Symptoms Respiratory: Reports: No Symptoms Cardiovascular: Reports: No Symptoms Endocrine: Reports: No Symptoms GI/Abdominal: Reports: No Symptoms : Reports: No Symptoms Musculoskeletal: Reports: No Symptoms Skin: Reports: No Symptoms Neurological: Reports: No Symptoms, Weakness (generalized), Other (mild dementia ) Psychiatric: Reports: No Symptoms ED EXAM, GENERAL - Physical Exam Exam: See Below Exam Limited By: No Limitations General Appearance: Alert, No Apparent Distress, Thin Eye Exam: Bilateral Eye: Normal Inspection Ears: Normal External Exam, Normal Canal, Hearing Grossly Normal, Normal TMs Ear Exam: Bilateral Ear: Auricle Normal, Canal Normal, TM normal Nose: Normal Inspection, Normal Mucosa Throat/Mouth: Normal Inspection, Normal Lips, Normal Oropharynx, Normal Voice, No Airway Compromise Head: Atraumatic, Normocephalic Neck: Normal Inspection, Supple, Non-Tender Respiratory/Chest: No Respiratory Distress, Lungs Clear, No Accessory Muscle Use , Other (some coarse breath sounds on the left) Cardiovascular: Regular Rate, Rhythm GI/Abdominal: Normal Bowel Sounds, Soft, Non-Tender, No Distention Extremities: Non-Tender, Pedal Edema. No: No Pedal Edema, Leg Pain Neurological: CN II-XII Intact, No Motor/Sensory Deficits, Other (slow mentation ) Psychiatric: Normal Affect, Normal Mood Skin Exam: Warm, Dry, Intact, Normal Color, No Rash Lymphatic: No Adenopathy EKG INTERPRETATION EKG Date: 08/29/17 Time: 21:20 Rhythm: Other (paced) Rate (Beats/Min): 60 P-Wave: Absent QRS: Wide ST-T: Normal Comparison: No Change Course - Vital Signs Text/Narrative:: accepted in transfer by Dr. Rajan at [facility] @ 0837. Last Recorded V/S: Last Vital Signs Temp 36.7 C 08/29/17 19:49 Pulse 64 08/29/17 19:49 Resp 12 08/29/17 19:49 BP 148/68 H 08/29/17 19:49 Pulse Ox 96 04/21/18 19:49 - Orders/Labs/Meds Orders: Active Orders 24 hr Category Date Time Status Cardiac Monitoring [RC] .As Directed Care 08/29/17 21:18 Active EKG Documentation Completion [RC] ASDIRECTED Care 08/29/17 21:18 Active Chest 1V Frontal [CR] Stat Exams 08/29/17 20:45 Taken UA W/MICROSCOPIC [URIN] Stat Lab 08/29/17 20:32 Ordered Sodium Chloride 0.9% [Saline Flush] Med 08/29/17 21:18 Active 10 ml FLUSH ASDIRECTED PRN Saline Lock Insert [OM.PC] Routine Oth 08/29/17 21:18 Ordered EKG 12 Lead [EK] Routine Ther 08/29/17 21:18 Ordered Medication Orders Sodium Chloride (Saline Flush) 10 ml FLUSH ASDIRECTED PRN PRN Reason: Keep Vein Open Labs: Laboratory Tests 08/29/17 08/29/17 Range/Units 20:49 20:49 WBC 3.5 L (4.5-11.0) K/uL RBC 3.89 L (4.30-5.90) M/uL Hgb 13.0 (12.0-15.0) g/dL Hct 38.9 L (40.0-54.0) % MCV 100 H (80-98) fL MCH 33 H (27-31) pg MCHC 33 (32-36) % Plt Count 84 L (150-400) K/uL Sodium 139 L (140-148) mmol/L Potassium 5.0 (3.6-5.2) mmol/L Chloride 103 (100-108) mmol/L Carbon Dioxide 28 (21-32) mmol/L Anion Gap 13.0 (5.0-14.0) mmol/L BUN 17 (7-18) mg/dL Creatinine 1.4 H (0.8-1.3) mg/dL Est Cr Clr Drug Dosing 41.55 mL/min Estimated GFR (MDRD) 49 L (>60) Glucose 146 H (74-106) mg/dL Calcium 7.8 L (8.5-10.1) mg/dL Troponin I 0.067 H* (0.000-0.056) ng/mL Meds: Medications Generic Name Dose Route Start Last Admin Trade Name Freq PRN Reason Stop Dose Admin Sodium Chloride 10 ml 08/29/17 21:18 Saline Flush FLUSH ASDIRECTED PRN Keep Vein Open - Radiology Interpretation Free Text/Narrative:: CXR-no acute changes Departure - Departure Time of Disposition: 22:20 Disposition: DC/Tfer to Acute Hospital 02 Condition: Fair Clinical Impression: Weakness Failure to thrive Qualifiers: Failure to thrive age range: in adult Qualified Code(s): R62.7 - Adult failure to thrive - Discharge Information Referrals: PCP,None [Primary Care Provider] - Forms: ED Department Discharge - My Orders Last 24 Hours: My Active Orders 08/29/17 20:32 UA W/MICROSCOPIC [URIN] Stat 08/29/17 20:45 Chest 1V Frontal [CR] Stat 08/29/17 21:18 Cardiac Monitoring [RC] .As Directed EKG Documentation Completion [RC] ASDIRECTED Sodium Chloride 0.9% [Saline Flush] 10 ml FLUSH ASDIRECTED PRN Saline Lock Insert [OM.PC] Routine EKG 12 Lead [EK] Routine - Assessment/Plan Last 24 Hours: My Active Orders 08/29/17 20:32 UA W/MICROSCOPIC [URIN] Stat 08/29/17 20:45 Chest 1V Frontal [CR] Stat 08/29/17 21:18 Cardiac Monitoring [RC] .As Directed EKG Documentation Completion [RC] ASDIRECTED Sodium Chloride 0.9% [Saline Flush] 10 ml FLUSH ASDIRECTED PRN Saline Lock Insert [OM.PC] Routine EKG 12 Lead [EK] Routine
[2017-08-29] MEDS ORDERED: Sodium Chloride 0.9% 10 ML Syringe FLUSH PRN (21:18)
--- NOTE | 2017-08-31 09:02 | CR ---
Chest 1V Frontal HISTORY: coarse breath sounds on L with weakness FINDINGS: Portable chest, 6 hours. No acute infiltrate is identified. Heart size is within normal limits. No vascular redistribution or pleural fluid is seen. There is atherosclerotic calcification in the aortic arch. Old median sternotomy changes and multiple mediastinal surgical clips are noted. Pacemaker generator overlies the left chest laterally. Atrial and ventricular lead wires appear intact and in satisfactory position. Reverse right shoulder arthrop lasty is noted. IMPRESSION: Old median sternotomy changes. Pacemaker lead wires appear satisfactory. Right shoulder a rthroplasty is noted. No acute abnormality is identified.
== END 2017-08-29 22:39 ==
LOC: JP.ED 19:45
DX: R53.1 Weakness (principal); R62.7 Adult failure to thrive; I10 Essential (primary) hypertension; I25.2 Old myocardial infarction; E78.00 Pure hypercholesterolemia, unspecified; E11.9 Type 2 diabetes mellitus without complications; Z87.891 Personal history of nicotine dependence; Z79.01 Long term (current) use of anticoagulants; Z79.82 Long term (current) use of aspirin; Z79.899 Other long term (current) drug therapy; Z88.8 Allergy status to other drugs, medicaments and biological substances
CPT/HCPCS: 36415; 71045; 80048; 84484; 85027; 93005; 99285; J7050

== ENCOUNTER 2018-02-12 09:04 | Emergency (ER) | payer MEDICARE, BC ==
--- NOTE | 2018-02-12 09:49 | EDM.PDOC ---
ED HPI GENERAL MEDICAL PROBLEM - General Chief Complaint: Neuro Symptoms/Deficits Stated Complaint: MEDICAL [facility]IA [facility] Time Seen by Provider: 02/12/18 09:35 Source of Information: Reports: Patient, EMS History Limitations: Reports: No Limitations - History of Present Illness INITIAL COMMENTS - FREE TEXT/NARRATIVE: 82-year-old male got up this morning and while walking across his home became dizzy, lightheaded, and his head felt "swollen". His legs became weak. Onset: Sudden Duration: Minutes: (Symptoms lasted 15-20 minutes) Quality: Reports: Other (Denies pain) Severity: Moderate Associated Symptoms: Reports: Malaise, Weakness. Denies: Confusion, Chest Pain , Cough, Headaches, Nausea/Vomiting - Related Data Allergies Allergy/AdvReac Type Severity Reaction Status Date / Time ticlopidine HCl [From Ticlid] Allergy Hives Verified 02/12/18 09:05 atorvastatin calcium AdvReac Muscle Verified 02/12/18 09:05 [From Lipitor] Aches quinapril HCl [From Accupril] AdvReac Cough Verified 02/12/18 09:05 Home Meds: Home Meds Albuterol Sulfate [Proair Hfa] 2 puff IH Q6HR 03/09/13 [History] Metoprolol Succinate [Toprol XL] 25 mg PO DAILY 03/09/13 [History] Nitroglycerin [Nitrostat] 0.4 mg SL ASDIRECTED 03/09/13 [History] Oxybutynin Chloride [Ditropan Xl] 5 mg PO DAILY 03/09/13 [History] Aspirin 81 mg PO DAILY 09/16/15 [History] Pantoprazole [ProTONIX] 40 mg PO ACBREAKFAST #30 tab.cr 10/02/15 [Rx] Warfarin [Coumadin] 4 mg PO DAILY 02/04/16 [History] Furosemide 40 mg PO DAILY 02/12/18 [History] Morphine 15 mg PO BID PRN 02/12/18 [History] metFORMIN [Glucophage] 1,000 mg PO BIDMEALS 02/12/18 [History] Past Medical History HEENT History: Reports: Impaired Vision, Other (See Below) Other HEENT History: pt wears reading glasses Cardiovascular History: Reports: Aneurysm, Bypass, High Cholesterol, Hypertension, [place], Pacemaker, Stents Respiratory History: Reports: Asthma, COPD Gastrointestinal History: Reports: GERD, Hiatal Hernia Genitourinary History: Reports: Renal Disease, Urinary Incontinence Musculoskeletal History: Reports: Back Pain, Chronic, Other (See Below) Other Musculoskeletal History: nerv stimulator implanted in back. Neurological History: Reports: TIA Other Neuro History: new onset of dementia Psychiatric History: Reports: Dementia Other Psychiatric History: on set of dementia Endocrine/Metabolic History: Reports: Diabetes, Type II Hematologic History: Reports: None Dermatologic History: Reports: Eczema - Infectious Disease History Infectious Disease History: Reports: Chicken Pox, Measles, Shingles Other Infectious Disease History: unable to obtain at this time - Past Surgical History Head Surgeries/Procedures: Reports: None HEENT Surgical History: Reports: None Cardiovascular Surgical History: Reports: Coronary Artery Bypass, Coronary Artery Stent Respiratory Surgical History: Reports: None GI Surgical History: Reports: Cholecystectomy Endocrine Surgical History: Reports: None Neurological Surgical History: Reports: Vertebroplasty Musculoskeletal Surgical History: Reports: Shoulder Surgery Dermatological Surgical History: Reports: None Social & Family History - Family History Family Medical History: Noncontributory Cardiac: Reports: [place] Musculoskeletal: Reports: Arthritis Neurological: Reports: Neuropathy, Diabetic Endocrine/Metabolic: Reports: Diabetes, type II - Tobacco Use Smoking Status *Q: Former Smoker Used Tobacco, but Quit: Yes Month/Year Tobacco Last Used: 1985 Second Hand Smoke Exposure: No - Caffeine Use Caffeine Use: Reports: Soda - Recreational Drug Use Recreational Drug Use: No - Living Situation & Occupation Living situation: Reports: Extended Care Facility Occupation: Disabled ED ROS GENERAL - Review of Systems Review Of Systems: See Below Constitutional: Reports: Malaise, Weakness. Denies: Fever, Chills HEENT: Reports: No Symptoms Respiratory: Denies: Shortness of Breath Cardiovascular: Reports: Lightheadedness. Denies: Chest Pain, Palpitations GI/Abdominal: Denies: Abdominal Pain, Nausea, Vomiting Skin: Reports: No Symptoms Neurological: Reports: Dizziness, Difficulty Walking (Weakness in his legs). Denies: Headache Psychiatric: Reports: Anxiety ED EXAM, GENERAL - Physical Exam Exam: See Below Exam Limited By: No Limitations General Appearance: Alert, No Apparent Distress Eye Exam: Bilateral Eye: Normal Inspection Head: Atraumatic Neck: Normal Inspection Respiratory/Chest: No Respiratory Distress, Decreased Breath Sounds (Decreased breath sounds in the bases and a few chronic sounding crackles) Cardiovascular: Regular Rate, Rhythm GI/Abdominal: Soft, Non-Tender Extremities: Normal Inspection. No: Pedal Edema Neurological: Alert, Oriented Psychiatric: Normal Affect, Normal Mood Skin Exam: Warm, Dry Course - Vital Signs Last Recorded V/S: Last Vital Signs Temp 97.8 F 02/12/18 09:21 Pulse 61 02/12/18 11:57 Resp 16 02/12/18 11:57 BP 136/62 02/12/18 11:57 Pulse Ox 98 02/12/18 11:57 - Orders/Labs/Meds Labs: Laboratory Tests 02/12/18 02/12/18 Range/Units 10:03 10:15 WBC 3.0 L (4.5-11.0) K/uL RBC 3.62 L (4.30-5.90) M/uL Hgb 11.8 L (12.0-15.0) g/dL Hct 36.7 L (40.0-54.0) % MCV 101 H (80-98) fL MCH 33 H (27-31) pg MCHC 32 (32-36) % Plt Count 100 L (150-400) K/uL Neut % (Auto) 62 (36-66) % Lymph % (Auto) 22 L (24-44) % [place] % (Auto) 7 H (2-6) % Eos % (Auto) 7 H (2-4) % Baso % (Auto) 2 H (0-1) % Sodium 138 L (140-148) mmol/L Potassium 3.9 (3.6-5.2) mmol/L Chloride 99 L (100-108) mmol/L Carbon Dioxide 30 (21-32) mmol/L Anion Gap 12.9 (5.0-14.0) mmol/L BUN 30 H D (7-18) mg/dL Creatinine 1.2 (0.8-1.3) mg/dL Est Cr Clr Drug Dosing 44.10 mL/min Estimated GFR (MDRD) 58 L (>60) Glucose 91 (74-106) mg/dL Calcium 7.9 L (8.5-10.1) mg/dL Total Bilirubin 1.2 H (0.2-1.0) mg/dL AST 26 (15-37) U/L ALT 19 (12-78) U/L Alkaline Phosphatase 108 (46-116) U/L Troponin I 0.038 (0.000-0.056) ng/mL Total Protein 7.9 (6.4-8.2) g/dL Albumin 3.2 L (3.4-5.0) g/dL Globulin 4.7 H (2.3-3.5) g/dL Albumin/Globulin Ratio 0.7 L (1.2-2.2) - Re-Assessments/Exams Free Text/Narrative Re-Assessment/Exam: 02/12/18 10:25 Two-view chest x-ray, CBC and CMP will be obtained. 02/12/18 11:35 Two-view chest x-ray showed chronic changes only, white count was low which is a chronic finding. Hemoglobin normal. CMP had some mild abnormalities but when compared to previous levels they are consistent and stable. Departure - Departure Time of Disposition: 12:31 Disposition: Home, Self-Care 01 Condition: Fair Clinical Impression: Syncope, near, Generalized weakness - Discharge Information Instructions: Weakness Referrals: Vinay Starr MD [Primary Care Provider] - Forms: ED Department Discharge Care Plan Goals: Continue your current medications, and consider rechecking early next week if not improving satisfactorily. Activity as tolerated and stay hydrated. Return sooner if worsening or you develop other concerns.
--- NOTE | 2018-02-12 10:13 | CR ---
CHEST: 2 view CLINICAL HISTORY:Syncope, dyspnea COMPARISON:08/29/2017 FINDINGS: Patient has had previous sternotomy. Prescribed aorta There is a permanent cardiac pacer w ith sequential leads in the right atrium and right ventricle. Heart size and pulmonary vascularity ar e normal. There is some mild patchy density in both lower lung smart. This is similar to prior studi es and may be some chronic fibrosis There may be a minimal left effusion.. Impression: Minimal patchy bibasal densities are likely chronic Small left pleural effusion
[2018-02-12 12:02] VITALS: BP 136/62
== END 2018-02-12 12:30 | disposition home or self-care (01) ==
LOC: JP.ED 09:04
DX: R55 Syncope and collapse (principal); R53.1 Weakness; I10 Essential (primary) hypertension; E78.00 Pure hypercholesterolemia, unspecified; I25.2 Old myocardial infarction; E11.9 Type 2 diabetes mellitus without complications; Z87.891 Personal history of nicotine dependence; Z79.01 Long term (current) use of anticoagulants; Z79.899 Other long term (current) drug therapy; Z79.84 Long term (current) use of oral hypoglycemic drugs; Z88.8 Allergy status to other drugs, medicaments and biological substances
CPT/HCPCS: 36415; 71046; 71046-26; 80053; 84484; 85025; 99284

== ENCOUNTER 2018-07-13 16:38 | Inpatient (IN) | payer MEDICARE, BC, MEDICAID ==
[2018-07-13] MEDS ORDERED: Ondansetron 4 MG/2 ML SDV IV PRN (16:44)
[2018-07-13] MEDS ORDERED: Acetaminophen 325 MG Tab PO PRN (16:44)
[2018-07-13] MEDS ORDERED: Sodium Chloride 0.9% 10 ML Syringe FLUSH PRN (16:44)
--- NOTE | 2018-07-13 16:51 | PCM.HP ---
H&P History of Present Illness - General Date of Service: 07/13/18 Admit Problem/Dx: Admission Diagnosis/Problem Admission Diagnosis/Problem Pneumonia Source of Information: Old Records, Provider, RN Notes Reviewed History Limitations: Reports: Altered Mental Status (Dementia) - History of Present Illness Initial Comments - Free Text/Narative: Mr. Villar is an 82-year-old gentleman who is admitted as a direct admission from the clinic for further evaluation and management of right lung pneumonia. He's not felt well over the past several days and has had a relatively loose cough. There is been associated weakness with decrease in appetite. He does not think that he is had significant fever or chills. He was seen and evaluated in the clinic today chest x-ray shows evidence of an obvious right lung infiltrate. White blood cell count is within normal range and his vital signs are stable. - Related Data Allergies/Adverse Reactions: Allergies Allergy/AdvReac Type Severity Reaction Status Date / Time ticlopidine HCl [From Ticlid] Allergy Hives Verified 03/26/18 21:29 atorvastatin calcium AdvReac Muscle Verified 03/26/18 21:29 [From Lipitor] Aches quinapril HCl [From Accupril] AdvReac Cough Verified 03/26/18 21:29 Home Medications: Home Meds Albuterol Sulfate [Proair Hfa] 2 puff IH BID PRN 03/09/13 [History] Metoprolol Succinate [Toprol XL] 25 mg PO QAM 03/09/13 [History] Nitroglycerin [Nitrostat] 0.4 mg SL ASDIRECTED PRN 03/09/13 [History] Oxybutynin Chloride [Ditropan Xl] 10 mg PO QAM 03/09/13 [History] Pantoprazole [ProTONIX] 40 mg PO ACBREAKFAST #30 tab.cr 10/02/15 [Rx] Warfarin [Coumadin] 6 mg PO ASDIRECTED 02/04/16 [History] metFORMIN [Glucophage] 1,000 mg PO BIDMEALS 02/12/18 [History] Latanoprost 1 drop EYERT BEDTIME 02/16/18 [History] Losartan [Cozaar] 25 mg PO QAM 02/16/18 [History] Timolol Maleate 1 drop EYERT QAM 02/16/18 [History] Bumetanide 1 mg PO QAM 03/26/18 [History] Ergocalciferol (Vitamin D2) [Vitamin D2] 50,000 units PO WEEKLY 03/26/18 [ History] Ketoconazole [Nizoral 2% Crm] 1 applic TOP BID PRN 03/26/18 [History] Warfarin [Coumadin] 4 mg PO ASDIRECTED 03/27/18 [History] Divalproex Sodium 250 mg PO BIDMEALS #60 tab.cr 03/28/18 [Rx] Melatonin 9 mg PO BEDTIME #90 tablet 03/28/18 [Rx] Gabapentin [Neurontin] 100 mg PO BID #60 capsule 04/09/18 [Rx] Acetaminophen 500 mg PO Q4H PRN 07/13/18 [History] Alum Hydrox/Mag Hydrox/Simeth [Maalox Advanced] 10 ml PO Q6H PRN 07/13/18 [ History] Bacitracin [Bacitracin Oint] 1 applic TOP BID PRN 07/13/18 [History] Bisacodyl 1 supp RECTAL BID PRN 07/13/18 [History] DULoxetine HCl [Duloxetine HCl] 20 mg PO DAILY 07/13/18 [History] Dextran 70/Hypromellose [Artificial Tears] 1 each OP QID PRN 07/13/18 [History] Dextromethorphan/guaiFENesin [Robitussin DM] 10 ml PO Q4H PRN 07/13/18 [History] Hydrocodone/Acetaminophen [Hydrocodon-Acetaminophen 5-325] 1 tab PO Q6H PRN 09/26 [History] Ipratropium/Albuterol Sulfate [Iprat-Albut 0.5-3(2.5) MG/3 ML] 1 inh NEB TID 09/26 [History] Loperamide [Imodium] 4 mg PO ASDIRECTED PRN 07/13/18 [History] Magnesium Hydroxide [Milk of Magnesia] 30 ml PO DAILY PRN 07/13/18 [History] Menthol [Bengay] 1 applic TOP TID PRN 07/13/18 [History] Trolamine Salicylate/Aloe Vera [Aspercreme 10%] 1 applic TOP ASDIRECTED PRN 09/26 [History] Vits A and D/White Pet/Lanolin [A and D Ointment] 1 applic TOP ASDIRECTED PRN [History] predniSONE [Prednisone] 20 mg PO BID 07/13/18 [History] Past Medical History HEENT History: Reports: Impaired Vision, Other (See Below) Other HEENT History: pt wears reading glasses Cardiovascular History: Reports: Aneurysm, Bypass, High Cholesterol, Hypertension, MT, Pacemaker, Stents Other Cardiovascular History: peripheral vascular disease. stenosis of right carotid artery Respiratory History: Reports: Asthma, COPD Other Respiratory History: pulmonary hypertension Gastrointestinal History: Reports: GERD, Hiatal Hernia Genitourinary History: Reports: Renal Disease, Urinary Incontinence Other Genitourinary History: renal artery stenosis Musculoskeletal History: Reports: Back Pain, Chronic, Other (See Below) Other Musculoskeletal History: nerv stimulator implanted in back. Neurological History: Reports: TIA Other Neuro History: new onset of dementia Psychiatric History: Reports: Dementia Other Psychiatric History: on set of dementia Endocrine/Metabolic History: Reports: Diabetes, Type II Hematologic History: Reports: None Dermatologic History: Reports: Eczema - Infectious Disease History Infectious Disease History: Reports: Chicken Pox, Measles, Shingles Other Infectious Disease History: unable to obtain at this time - Past Surgical History Head Surgeries/Procedures: Reports: None HEENT Surgical History: Reports: None Cardiovascular Surgical History: Reports: Coronary Artery Bypass, Coronary Artery Stent Respiratory Surgical History: Reports: None GI Surgical History: Reports: Cholecystectomy Male Surgical History: Reports: None Endocrine Surgical History: Reports: None Neurological Surgical History: Reports: Vertebroplasty Musculoskeletal Surgical History: Reports: Shoulder Surgery Dermatological Surgical History: Reports: None Social & Family History - Family History Family Medical History: Noncontributory Cardiac: Reports: MT Musculoskeletal: Reports: Arthritis Neurological: Reports: Neuropathy, Diabetic Endocrine/Metabolic: Reports: Diabetes, type II - Caffeine Use Caffeine Use: Reports: Soda - Living Situation & Occupation Living situation: Reports: (lives with in [place], [place]) Occupation: Disabled H&P Review of Systems - Review of Systems: Review Of Systems: See Below General: Reports: Weakness, Decreased Appetite. Denies: Fever, Chills HEENT: Reports: No Symptoms Pulmonary: Reports: Cough, Sputum. Denies: Shortness of Breath, Wheezing, Pleuritic Chest Pain, Hemoptysis Cardiovascular: Denies: Chest Pain, Palpitations, Dyspnea on Exertion, Orthopnea , PND, Edema, Lightheadedness Gastrointestinal: Reports: No Symptoms Genitourinary: Reports: No Symptoms Musculoskeletal: Reports: Back Pain (Chronic) Skin: Reports: No Symptoms Psychiatric: Reports: No Symptoms Neurological: Reports: No Symptoms Hematologic/Lymphatic: Reports: No Symptoms Immunologic: Reports: No Symptoms Exam - Exam Exam: See Below - Exam Quality Assessment: DVT Prophylaxis General: Alert, Cooperative, Mild Distress. No: Oriented Lungs: Clear to Auscultation, Normal Respiratory Effort, Decreased Breath Sounds. No: Rales, Rhonchi, Rub, Wheezing Cardiovascular: Regular Rate, Normal S1, Normal S2, Irregular Rhythm. No: Systolic Murmur, Diastolic Murmur GI/Abdominal Exam: Soft, Non-Tender, No Organomegaly, No Distention Back Exam: Full Range of Motion, Vertebral Tenderness Extremities: Non-Tender, No Pedal Edema Skin: Warm, Dry, Intact Neurological: Cranial Nerves Intact, Strength Equal Bilateral, Normal Gait, Normal Speech, Normal Tone, Sensation Intact Neuro Extensive - Mental Status: Alert, Normal Mood/Affect, Disorientation to Time, Memory Loss-Recent Events. No: Oriented x3, Disorientation to Person, Disorientation to Place, Memory Loss-Remote Events *Q Meaningful Use (ADM) - VTE *Q VTE Pharmacological Contraindications *Q: High INR Value - VTE Risk Assess *Q Each Risk Factor Represents 1 Point: Serious lung disease including pneumonia, Abnormal Pulmonary Function (COPD) Total Score 1 Point Risk Factors: 2 Each Risk Factor Represents 2 Points: None Total Score 2 Point Risk Factors: 0 Each Risk Factor Represents 3 Points: Age 75 Years or Greater Total Score 3 Point Risk Factors: 3 Each Risk Factor Represents 5 Points: None Total Score 5 Point Risk Factors: 0 Venous Thromboembolism Risk Factor Score *Q: 5 Problem List Initiated/Reviewed/Updated: Yes Orders Last 24hrs: Active Orders 24 hr Category Date Time Status Patient Status [ADT] Routine ADT 07/13/18 16:44 Ordered Ambulate [RC] QID Care 07/13/18 16:44 Ordered Height and Weight [RC] DAILY Care 07/13/18 16:44 Ordered Intake and Output [RC] QSHIFT Care 07/13/18 16:44 Ordered Notify Provider Vital Signs [RC] ASDIRECTED Care 07/13/18 16:44 Ordered Oxygen Therapy [RC] PRN Care 07/13/18 16:44 Ordered Peripheral IV Care [RC] . DIRECTED Care 07/13/18 16:47 Ordered Pulse Oximetry [RC] CONTINUOUS Care 07/13/18 16:45 Ordered RT Aerosol Therapy [RC] ASDIRECTED Care 07/13/18 16:47 Ordered Up With Assistance [RC] ASDIRECTED Care 07/13/18 16:44 Ordered Up to Chair [RC] QID Care 07/13/18 16:44 Ordered VTE/DVT Education [RC] Per Unit Routine Care 07/13/18 16:44 Ordered Vital Signs [RC] Q4H Care 07/13/18 16:44 Ordered Regular Diet [DIET] Diet 07/13/18 Lunch Ordered BASIC METABOLIC PANEL,BMP [CHEM] AM Lab 07/14/18 05:11 Ordered CBC WITH AUTO DIFF [HEME] AM Lab 07/14/18 05:11 Ordered CULTURE BLOOD [BC] Stat Lab 07/13/18 16:44 Ordered CULTURE BLOOD [BC] Stat Lab 07/13/18 16:44 Ordered CULTURE RESPIRATORY + SMEAR [RM] Stat Lab 07/13/18 16:44 Ordered INR,PT,PROTHROMBIN TIME [COAG] Timed Lab 07/14/18 05:00 Ordered MAGNESIUM [CHEM] AM Lab 07/14/18 05:11 Ordered Acetaminophen [Tylenol] Med 07/13/18 16:44 Ordered 650 mg PO Q4H PRN Albuterol [Proventil Neb Soln] Med 07/13/18 16:44 Ordered 2.5 mg NEB Q4H PRN Azithromycin [Zithromax] 500 mg Med 07/13/18 17:00 Ordered Sodium Chloride 0.9% [Normal Saline] 250 ml IV Q24H Docusate Sodium/Sennosides [Senna Plus] Med 07/13/18 16:44 Ordered 1 tab PO BID PRN Lactobacillus Rhamnosus GG [Culturelle] Med 07/13/18 17:00 Ordered 1 cap PO BID Ondansetron [Zofran] Med 07/13/18 16:44 Ordered 4 mg IV Q4H PRN Sodium Chloride 0.9% @ 125 MLS/HR (1000ml) Med 07/13/18 16:45 Ordered Sodium Chloride 0.9% [Normal Saline] 1,000 ml IV ASDIRECTED Sodium Chloride 0.9% [Saline Flush] Med 07/13/18 16:44 Ordered 10 ml FLUSH ASDIRECTED PRN cefTRIAXone [Rocephin] 1 gm Med 07/13/18 17:00 Ordered Sodium Chloride 0.9% [Normal Saline] 50 ml IV Q24H Blood Culture x2 Reflex Set [OM.PC] Stat Oth 07/13/18 16:46 Ordered Peripheral IV Insertion Adult [OM.PC] Routine Oth 07/13/18 16:44 Ordered Resuscitation Status Routine Resus Stat 07/13/18 16:44 Ordered Assessment/Plan Comment:: ASSESSMENT AND PLAN RIGHT LUNG PNEUMONIA-obvious infiltrate noted on chest x-ray from the clinic. Viral versus bacterial, normal white blood cell count and no history of recent significant temperature elevation. No evidence of significant sepsis at the present time. -Influenza a and B serology -Blood cultures pending -Sputum culture pending -IV fluids for hydration overnight -IV Rocephin and azithromycin pending culture results LONG-TERM ORAL ANTICOAGULATION WITH WARFARIN-history of underlying atrial fibrillation, INR supratherapeutic at the clinic today -INR in a.m. -Hold warfarin CHRONIC KIDNEY DISEASE STAGE III -Closely monitor urine output and renal function during hospital stay MAINTENANCE ISSUES -DVT prophylaxis;Current therapy with warfarin should provide adequate DVT prophylaxis -GI prophylaxis;Not indicated -Davis catheter;Not indicated -Nutrition;Regular diet -Nicotine dependence;Not required CODE STATUS-FULL CODE ADMISSION STATUS-patient will be admitted to inpatient status, expect at least a 2 night hospital stay for evaluation and management of problems as outlined above. At the time of this admission I do not reasonably expected evaluation and management of this problem will require more than a 96 hour hospital stay. DISPOSITION-anticipate discharge to home after the hospital stay. PRIMARY CARE PROVIDER-Dr. Starr
[2018-07-13] MEDS: Sodium Chloride 0.9% 1,000 ML IV SCH (18:03)
[2018-07-13] MEDS: cefTRIAXone 1 GM in Sodium Chloride 0.9% 50 ML IV SCH (18:04)
[2018-07-13] MEDS ORDERED: Glucose Gel 15 GM in 37.5 GM Tube PO PRN (18:06)
[2018-07-13] MEDS ORDERED: 50% Dextrose in Water 50 ML Syringe IV PRN (18:06)
[2018-07-13] MEDS: Azithromycin 500 MG in Sodium Chloride 0.9% 250 ML IV SCH (19:10)
[2018-07-13] MEDS: Lactobacillus Rhamnosus GG (Probiotic) Cap PO SCH ×2 (19:12→20:34)
[2018-07-13] MEDS: Magnesium Sulfate/Water 2 GM in Premix Bag 1 BAG IV SCH (20:31)
[2018-07-13] MEDS: Latanoprost 0.005% Ophth Soln 2.5 ML Bottle EYERT SCH (20:32)
[2018-07-13] MEDS: Gabapentin 100 MG Cap PO SCH (20:33)
[2018-07-13] MEDS: Melatonin 3 MG Tab PO SCH (20:33)
[2018-07-13] MEDS: Magnesium Oxide 400 MG Tab PO SCH (20:41)
[2018-07-13] MEDS ORDERED: Albuterol/Ipratropium 3.0-0.5 MG/3 ML Neb Soln NEB SCH (21:00)
[2018-07-13] MEDS ORDERED: Insulin Lispro 100 Units/ML 3 ML Vial SUBCUT ONE (21:02)
[2018-07-13] MEDS: Insulin Lispro 100 Unit/ML 3 ML KwikPen SUBCUT SCH ×2 (21:34→21:36)
[2018-07-14] MEDS: Magnesium Sulfate/Water 2 GM in Premix Bag 1 BAG IV SCH (00:30)
[2018-07-14] MEDS: Albuterol/Ipratropium 3.0-0.5 MG/3 ML Neb Soln NEB SCH ×4 (07:41→21:41)
[2018-07-14] MEDS: Insulin Lispro 100 Unit/ML 3 ML KwikPen SUBCUT SCH ×4 (08:07→21:32)
[2018-07-14] MEDS: Pantoprazole 40 MG Tab.CR PO SCH (08:11)
[2018-07-14] MEDS: metFORMIN 500 MG Tab PO SCH ×2 (08:11→17:24)
[2018-07-14] MEDS: Divalproex Sodium Delayed-Release 250 MG Tab.CR PO SCH ×2 (08:11→17:24)
[2018-07-14] MEDS: Bumetanide 1 MG Tab PO SCH (09:54)
[2018-07-14] MEDS: Magnesium Oxide 400 MG Tab PO SCH ×2 (09:54→21:31)
[2018-07-14] MEDS: DULoxetine 20 MG Cap PO SCH (09:54)
[2018-07-14] MEDS: Losartan 50 MG Tab PO SCH (09:54)
[2018-07-14] MEDS: Lactobacillus Rhamnosus GG (Probiotic) Cap PO SCH ×2 (09:55→21:31)
[2018-07-14] MEDS: Gabapentin 100 MG Cap PO SCH ×2 (09:56→21:31)
[2018-07-14] MEDS: Metoprolol Succinate 25 MG Tab.ER PO SCH (09:56)
[2018-07-14] MEDS: Oxybutynin 5 MG Tab PO SCH ×2 (09:56→21:31)
[2018-07-14] MEDS: Timolol Maleate 0.5% Ophth Soln 5 ML Bottle EYERT SCH (09:57)
[2018-07-14] MEDS: Sodium Chloride 0.9% 1,000 ML IV SCH (11:12)
[2018-07-14] MEDS: Acetaminophen/HYDROcodone 325-5 MG Tab PO PRN (11:26)
--- NOTE | 2018-07-14 14:04 | PCM.PN ---
- General Info Date of Service: 07/14/18 Subjective Update: Mr. Villar has been stable since admission with no significant temperature elevation or hemodynamic instability. Continues to have a cough although that's improved and he denies significant shortness of breath. Appetite is improved with improved oral intake. Functional Status: Reports: Tolerating Diet, Urinating - Review of Systems General: Reports: Weakness. Denies: Fever, Chills Pulmonary: Reports: Cough, Sputum. Denies: Shortness of Breath, Hemoptysis, Wheezing Cardiovascular: Reports: No Symptoms Gastrointestinal: Reports: No Symptoms - Patient Data Vitals - Most Recent: Last Vital Signs Temp 97.4 F 07/14/18 11:17 Pulse 59 L 07/14/18 11:17 Resp 22 H 07/14/18 11:17 BP 121/42 L 07/14/18 11:17 Pulse Ox 90 L 07/14/18 11:17 Weight - Most Recent: 145 lb I&O - Last 24 Hours: Intake & Output 07/13/18 07/14/18 07/14/18 22:59 06:59 14:59 Intake Total 1746 240 Balance 1746 240 Lab Results Last 24 Hours: Laboratory Results - last 24 hr 07/14/18 07/14/18 07/14/18 Range/Units 03:44 03:44 03:44 WBC 7.2 (4.5-11.0) K/uL RBC 3.33 L (4.30-5.90) M/uL Hgb 10.7 L (12.0-15.0) g/dL Hct 33.5 L (40.0-54.0) % MCV 101 H (80-98) fL MCH 32 H (27-31) pg MCHC 32 (32-36) % Plt Count 155 (150-400) K/uL Neut % (Auto) 79 H (36-66) % Lymph % (Auto) 12 L (24-44) % Austin % (Auto) 9 H (2-6) % Eos % (Auto) 1 L (2-4) % Baso % (Auto) 0 (0-1) % PT 44.4 H (9.5-12.0) sec INR 4.39 H* D (0.80-1.20) Sodium 131 L (140-148) mmol/L Potassium 4.4 (3.6-5.2) mmol/L Chloride 96 L (100-108) mmol/L Carbon Dioxide 29 (21-32) mmol/L Anion Gap 10.4 (5.0-14.0) mmol/L BUN 45 H (7-18) mg/dL Creatinine 1.3 (0.8-1.3) mg/dL Est Cr Clr Drug Dosing 40.71 mL/min Estimated GFR (MDRD) 53 L (>60) Glucose 367 H (74-106) mg/dL Calcium 9.0 (8.5-10.1) mg/dL Magnesium 2.6 H (1.8-2.4) mg/dL Lucas Results Last 24 Hours: Microbiology 07/13/18 22:11 Gram Stain - Final Sputum - Expectorated Med Orders - Current: Current Medications Acetaminophen (Tylenol) 650 mg PO Q4H PRN PRN Reason: Pain (Mild 1-3)/fever Last Admin: 07/14/18 11:29 Dose: 325 mg Hydrocodone Bitart/Acetaminophen (Neihart 325-5 Mg) 1 tab PO Q6H PRN PRN Reason: Pain Last Admin: 07/14/18 11:26 Dose: 1 tab Albuterol (Proventil Neb Soln) 2.5 mg NEB Q4H PRN PRN Reason: Shortness Of Breath/wheezing Albuterol/Ipratropium (Duoneb 3.0-0.5 Mg/3 Ml) 3 ml NEB TIDRT [facility] Last Admin: 07/14/18 12:55 Dose: Not Given Bumetanide (Bumex) 1 mg PO QAM [facility] Last Admin: 07/14/18 09:54 Dose: 1 mg Dextrose (Glutose 15) 15 gm PO ONETIME PRN PRN Reason: Hypoglycemia Dextrose/Water (Dextrose 50% In Water) 50 ml IV ONETIME PRN PRN Reason: Hypoglycemia Divalproex Sodium (Divalproex Sodium) 250 mg PO BIDMEALS [facility] Last Admin: 07/14/18 08:11 Dose: 250 mg Duloxetine HCl (Cymbalta) 20 mg PO DAILY [facility] Last Admin: 07/14/18 09:54 Dose: 20 mg Gabapentin (Neurontin) 100 mg PO BID [facility] Last Admin: 07/14/18 09:56 Dose: 100 mg Guaifenesin/Dextromethorphan (Robitussin Dm) 10 ml PO Q4H PRN PRN Reason: Cough Azithromycin 500 mg/ Sodium (Chloride) 250 mls @ 250 mls/hr IV Q24H [facility] Last Admin: 07/13/18 19:10 Dose: 250 mls/hr Ceftriaxone Sodium 1 gm/ (Sodium Chloride) 50 mls @ 100 mls/hr IV Q24H [facility] Last Admin: 07/13/18 18:04 Dose: 100 mls/hr Insulin Human Lispro (Humalog) 0 unit SUBCUT QIDACANDBED [facility]; Protocol Last Admin: 07/14/18 11:47 Dose: 4 units Lactobacillus Rhamnosus (Culturelle) 1 cap PO BID [facility] Last Admin: 07/14/18 09:55 Dose: 1 cap Latanoprost (Xalatan 0.005% Ophth Soln) 0 ml EYERT BEDTIME [facility] Last Admin: 07/13/18 20:32 Dose: 1 drop Losartan Potassium (Cozaar) 25 mg PO DAILY [facility] Last Admin: 07/14/18 09:54 Dose: 25 mg Magnesium Oxide (Magnesium Oxide) 400 mg PO BID [facility] Last Admin: 07/14/18 09:54 Dose: 400 mg Melatonin (Melatonin) 9 mg PO BEDTIME [facility] Last Admin: 07/13/18 20:33 Dose: 9 mg Metformin HCl (Glucophage) 1,000 mg PO BIDMEALS [facility] Last Admin: 07/14/18 08:11 Dose: 1,000 mg Metoprolol Succinate (Toprol Xl) 25 mg PO QAM [facility] Last Admin: 07/14/18 09:56 Dose: 25 mg Ondansetron HCl (Zofran) 4 mg IV Q4H PRN PRN Reason: Nausea/Vomiting Oxybutynin Chloride (Oxybutynin) 5 mg PO BID [facility] Last Admin: 07/14/18 09:56 Dose: 5 mg Pantoprazole Sodium (Protonix) 40 mg PO ACBREAKFAST [facility] Last Admin: 07/14/18 08:11 Dose: 40 mg Senna/Docusate Sodium (Senna Plus) 1 tab PO BID PRN PRN Reason: Constipation Sodium Chloride (Saline Flush) 10 ml FLUSH ASDIRECTED PRN PRN Reason: Keep Vein Open Timolol Maleate (Timoptic 0.5% Ophth Soln) 0 ml EYERT QAM [facility] Last Admin: 07/14/18 09:57 Dose: 1 drop Discontinued Medications Albuterol/Ipratropium (Duoneb 3.0-0.5 Mg/3 Ml) 3 ml NEB TID [facility] Last Admin: 07/13/18 20:33 Dose: 3 ml Sodium Chloride (Normal Saline) 1,000 mls @ 125 mls/hr IV ASDIRECTED [facility] Last Admin: 07/14/18 11:12 Dose: 125 mls/hr Magnesium Sulfate 2 gm/ Premix 50 mls @ 25 mls/hr IV Q6H [facility] Stop: 07/14/18 02:29 Last Admin: 07/14/18 00:30 Dose: 25 mls/hr Insulin Human Lispro (Humalog) 12 unit SUBCUT ONETIME ONE Stop: 07/13/18 21:03 Last Admin: 07/13/18 21:40 Dose: Not Given - Exam Quality Assessment: Supplemental Oxygen, DVT Prophylaxis General: Alert, Cooperative, No Acute Distress. No: Oriented Lungs: Clear to Auscultation, Normal Respiratory Effort, Decreased Breath Sounds Cardiovascular: Regular Rate, No Murmurs, Irregular Rhythm GI/Abdominal Exam: Soft, Non-Tender, No Organomegaly, No Distention Extremities: Non-Tender, No Pedal Edema - Problem List Review Problem List Initiated/Reviewed/Updated: Yes - My Orders Last 24 Hours: My Active Orders 07/13/18 16:44 Patient Status [ADT] Routine Ambulate [RC] QID Height and Weight [RC] DAILY Intake and Output [RC] QSHIFT Notify Provider Vital Signs [RC] ASDIRECTED Oxygen Therapy [RC] PRN Up With Assistance [RC] ASDIRECTED Up to Chair [RC] QID VTE/DVT Education [RC] Per Unit Routine Vital Signs [RC] Q4H Acetaminophen [Tylenol] 650 mg PO Q4H PRN Albuterol [Proventil Neb Soln] 2.5 mg NEB Q4H PRN Docusate Sodium/Sennosides [Senna Plus] 1 tab PO BID PRN Ondansetron [Zofran] 4 mg IV Q4H PRN Sodium Chloride 0.9% [Saline Flush] 10 ml FLUSH ASDIRECTED PRN Peripheral IV Insertion Adult [OM.PC] Routine Resuscitation Status Routine 07/13/18 16:45 Pulse Oximetry [RC] CONTINUOUS 07/13/18 16:46 Blood Culture x2 Reflex Set [OM.PC] Stat 07/13/18 16:47 Peripheral IV Care [RC] Q12H RT Aerosol Therapy [RC] ASDIRECTED 07/13/18 17:00 CULTURE BLOOD [BC] Stat Lactobacillus Rhamnosus GG [Culturelle] 1 cap PO BID cefTRIAXone [Rocephin] 1 gm Sodium Chloride 0.9% [Normal Saline] 50 ml IV Q24H 07/13/18 17:10 CULTURE BLOOD [BC] Stat 07/13/18 18:00 Azithromycin [Zithromax] 500 mg Sodium Chloride 0.9% [Normal Saline] 250 ml IV Q24H 07/13/18 18:03 Acetaminophen/HYDROcodone [Neihart 325-5 MG] 1 tab PO Q6H PRN Dextromethorphan/guaiFENesin [Robitussin DM] 10 ml PO Q4H PRN 07/13/18 18:06 Blood Glucose Check, Bedside [RC] QIDACANDBED Communication Order [RC] STAT Diabetes Education [RC] Click to Edit Notify Provider [RC] PRN Dextrose 50% in Water 50 ml IV ONETIME PRN Dextrose [Glutose 15] 15 gm PO ONETIME PRN 07/13/18 20:00 Insulin Lispro [HumaLOG] See Protocol SUBCUT QIDACANDBED 07/13/18 21:00 Gabapentin [Neurontin] 100 mg PO BID Latanoprost [Xalatan 0.005% Ophth Soln] 0 ml EYERT BEDTIME Magnesium Oxide 400 mg PO BID Melatonin 9 mg PO BEDTIME 07/13/18 22:11 CULTURE RESPIRATORY + SMEAR [RM] Stat 07/14/18 07:00 Albuterol/Ipratropium [DuoNeb 3.0-0.5 MG/3 ML] 3 ml NEB TIDRT 07/14/18 07:30 Pantoprazole [ProTONIX] 40 mg PO ACBREAKFAST 07/14/18 08:00 Divalproex Sodium 250 mg PO BIDMEALS metFORMIN [Glucophage] 1,000 mg PO BIDMEALS 07/14/18 09:00 Bumetanide [Bumex] 1 mg PO QAM DULoxetine [Cymbalta] 20 mg PO DAILY Losartan [Cozaar] 25 mg PO DAILY Metoprolol Succinate [Toprol XL] 25 mg PO QAM Oxybutynin 5 mg PO BID Timolol Maleate [Timoptic 0.5% Ophth Soln] 0 ml EYERT QAM 07/14/18 14:00 Consult to Physical Therapy [PT Evaluation and Treatment] [CONS] Routine Convert IV to Saline Lock [OM.PC] Routine 07/14/18 16:30 GLUCOSE POC LAB TO COLLECT [POC] QIDACANDBED 07/14/18 21:00 GLUCOSE POC LAB TO COLLECT [POC] QIDACANDBED 07/15/18 05:00 INR,PT,PROTHROMBIN TIME [COAG] Timed 07/15/18 07:30 GLUCOSE POC LAB TO COLLECT [POC] QIDACANDBED 07/15/18 11:30 GLUCOSE POC LAB TO COLLECT [POC] QIDACANDBED 07/15/18 16:30 GLUCOSE POC LAB TO COLLECT [POC] QIDACANDBED 07/15/18 21:00 GLUCOSE POC LAB TO COLLECT [POC] QIDACANDBED 07/16/18 07:30 GLUCOSE POC LAB TO COLLECT [POC] QIDACANDBED 07/16/18 11:30 GLUCOSE POC LAB TO COLLECT [POC] QIDACANDBED 07/16/18 16:30 GLUCOSE POC LAB TO COLLECT [POC] QIDACANDBED 07/16/18 21:00 GLUCOSE POC LAB TO COLLECT [POC] QIDACANDBED 07/17/18 07:30 GLUCOSE POC LAB TO COLLECT [POC] QIDACANDBED 07/17/18 11:30 GLUCOSE POC LAB TO COLLECT [POC] QIDACANDBED 07/17/18 16:30 GLUCOSE POC LAB TO COLLECT [POC] QIDACANDBED 07/17/18 21:00 GLUCOSE POC LAB TO COLLECT [POC] QIDACANDBED 07/18/18 07:30 GLUCOSE POC LAB TO COLLECT [POC] QIDACANDBED 07/18/18 11:30 GLUCOSE POC LAB TO COLLECT [POC] QIDACANDBED 07/18/18 16:30 GLUCOSE POC LAB TO COLLECT [POC] QIDACANDBED - Plan Plan:: ASSESSMENT AND PLAN RIGHT LUNG PNEUMONIA-obvious infiltrate noted on chest x-ray from the clinic. Viral versus bacterial, normal white blood cell count and no history of recent significant temperature elevation. No evidence of significant sepsis at the present time. Stable since admission, cough improved -Blood cultures pending -Sputum culture pending -Saline lock IV -IV Rocephin and azithromycin pending culture results LONG-TERM ORAL ANTICOAGULATION WITH WARFARIN-history of underlying atrial fibrillation, INR supratherapeutic at the clinic today. -INR in a.m. -Hold warfarin CHRONIC KIDNEY DISEASE STAGE III -Closely monitor urine output and renal function during hospital stay MAINTENANCE ISSUES -DVT prophylaxis;Current therapy with warfarin should provide adequate DVT prophylaxis -GI prophylaxis;Not indicated -Davis catheter;Not indicated -Nutrition;Regular diet -Nicotine dependence;Not required CODE STATUS-FULL CODE ADMISSION STATUS-patient will be admitted to inpatient status, expect at least a 2 night hospital stay for evaluation and management of problems as outlined above. At the time of this admission I do not reasonably expected evaluation and management of this problem will require more than a 96 hour hospital stay. DISPOSITION-anticipate discharge to home after the hospital stay. PRIMARY CARE PROVIDER-Dr. Starr
[2018-07-14] MEDS: cefTRIAXone 1 GM in Sodium Chloride 0.9% 50 ML IV SCH (17:19)
[2018-07-14] MEDS: Azithromycin 500 MG in Sodium Chloride 0.9% 250 ML IV SCH (18:11)
[2018-07-14] MEDS: Melatonin 3 MG Tab PO SCH (21:31)
[2018-07-14] MEDS: Latanoprost 0.005% Ophth Soln 2.5 ML Bottle EYERT SCH (21:31)
[2018-07-15] MEDS: guaiFENesin/Dextromethorphan 100-10 MG/5 ML Soln 10 ML Cup PO PRN ×2 (00:38→07:00)
[2018-07-15] MEDS: Albuterol/Ipratropium 3.0-0.5 MG/3 ML Neb Soln NEB SCH ×3 (07:16→20:15)
[2018-07-15] MEDS: Insulin Lispro 100 Unit/ML 3 ML KwikPen SUBCUT SCH ×4 (07:50→21:03)
[2018-07-15] MEDS: Divalproex Sodium Delayed-Release 250 MG Tab.CR PO SCH ×2 (07:52→17:38)
[2018-07-15] MEDS: metFORMIN 500 MG Tab PO SCH ×2 (07:52→17:38)
[2018-07-15] MEDS: Pantoprazole 40 MG Tab.CR PO SCH (07:52)
[2018-07-15] MEDS: Bumetanide 1 MG Tab PO SCH (09:37)
[2018-07-15] MEDS: Lactobacillus Rhamnosus GG (Probiotic) Cap PO SCH ×2 (09:41→20:15)
[2018-07-15] MEDS: DULoxetine 20 MG Cap PO SCH (09:43)
[2018-07-15] MEDS: Magnesium Oxide 400 MG Tab PO SCH ×2 (09:45→20:15)
[2018-07-15] MEDS: Gabapentin 100 MG Cap PO SCH ×2 (09:46→20:15)
[2018-07-15] MEDS: Oxybutynin 5 MG Tab PO SCH ×2 (09:48→20:16)
[2018-07-15] MEDS: Timolol Maleate 0.5% Ophth Soln 5 ML Bottle EYERT SCH (09:51)
[2018-07-15] MEDS: Metoprolol Succinate 25 MG Tab.ER PO SCH (10:52)
[2018-07-15] MEDS: Losartan 50 MG Tab PO SCH (10:56)
--- NOTE | 2018-07-15 12:25 | PCM.PN ---
- General Info Date of Service: 07/15/18 Subjective Update: Mr. Villar has been fairly stable since yesterday, no significant temperature elevation and vital signs have been stable. He continues to be fairly weak and reports that his appetite has been poor. Functional Status: Reports: Urinating - Review of Systems General: Reports: Weakness. Denies: Fever, Chills Pulmonary: Reports: No Symptoms. Denies: Shortness of Breath, Cough, Wheezing Cardiovascular: Reports: No Symptoms Gastrointestinal: Reports: No Symptoms - Patient Data Vitals - Most Recent: Last Vital Signs Temp 96.9 F 07/15/18 10:59 Pulse 64 07/15/18 10:59 Resp 20 07/15/18 10:59 BP 130/59 L 07/15/18 10:59 Pulse Ox 94 L 07/15/18 10:59 Weight - Most Recent: 148 lb 9.6 oz I&O - Last 24 Hours: Intake & Output 07/14/18 07/15/18 07/15/18 22:59 06:59 14:59 Intake Total 1972 250 480 Balance 1972 250 480 Lab Results Last 24 Hours: Laboratory Results - last 24 hr 07/15/18 Range/Units 04:40 PT 32.5 H (9.5-12.0) sec INR 3.15 H (0.80-1.20) Lucas Results Last 24 Hours: Microbiology 07/13/18 22:11 Gram Stain - Final Sputum - Expectorated Respiratory Culture - Preliminary 07/13/18 17:10 Aerobic Blood Culture - Preliminary Blood - Arm, Right NO GROWTH AFTER 1 DAY Anaerobic Blood Culture - Preliminary NO GROWTH AFTER 1 DAY 07/13/18 17:00 Aerobic Blood Culture - Preliminary Blood - Arm, Right NO GROWTH AFTER 1 DAY Anaerobic Blood Culture - Preliminary NO GROWTH AFTER 1 DAY Med Orders - Current: Current Medications Acetaminophen (Tylenol) 650 mg PO Q4H PRN PRN Reason: Pain (Mild 1-3)/fever Last Admin: 07/14/18 11:29 Dose: 325 mg Hydrocodone Bitart/Acetaminophen ([place] 325-5 Mg) 1 tab PO Q6H PRN PRN Reason: Pain Last Admin: 07/14/18 11:26 Dose: 1 tab Albuterol (Proventil Neb Soln) 2.5 mg NEB Q4H PRN PRN Reason: Shortness Of Breath/wheezing Albuterol/Ipratropium (Duoneb 3.0-0.5 Mg/3 Ml) 3 ml NEB TIDRT [facility] Last Admin: 07/15/18 07:16 Dose: 3 ml Bumetanide (Bumex) 1 mg PO QAM [facility] Last Admin: 07/15/18 09:37 Dose: 1 mg Dextrose (Glutose 15) 15 gm PO ONETIME PRN PRN Reason: Hypoglycemia Dextrose/Water (Dextrose 50% In Water) 50 ml IV ONETIME PRN PRN Reason: Hypoglycemia Divalproex Sodium (Divalproex Sodium) 250 mg PO BIDMEALS [facility] Last Admin: 07/15/18 07:52 Dose: 250 mg Duloxetine HCl (Cymbalta) 20 mg PO DAILY [facility] Last Admin: 07/15/18 09:43 Dose: 20 mg Gabapentin (Neurontin) 100 mg PO BID [facility] Last Admin: 07/15/18 09:46 Dose: 100 mg Guaifenesin/Dextromethorphan (Robitussin Dm) 10 ml PO Q4H PRN PRN Reason: Cough Last Admin: 07/15/18 07:00 Dose: 10 ml Azithromycin 500 mg/ Sodium (Chloride) 250 mls @ 250 mls/hr IV Q24H [facility] Last Admin: 07/14/18 18:11 Dose: 250 mls/hr Ceftriaxone Sodium 1 gm/ (Sodium Chloride) 50 mls @ 100 mls/hr IV Q24H [facility] Last Admin: 07/14/18 17:19 Dose: 100 mls/hr Insulin Human Lispro (Humalog) 0 unit SUBCUT QIDACANDBED [facility]; Protocol Last Admin: 07/15/18 11:48 Dose: 5 units Lactobacillus Rhamnosus (Culturelle) 1 cap PO BID [facility] Last Admin: 07/15/18 09:41 Dose: 1 cap Latanoprost (Xalatan 0.005% Ophth Soln) 0 ml EYERT BEDTIME [facility] Last Admin: 07/14/18 21:31 Dose: 1 drop Losartan Potassium (Cozaar) 25 mg PO DAILY [facility] Last Admin: 07/15/18 10:56 Dose: 25 mg Magnesium Oxide (Magnesium Oxide) 400 mg PO BID [facility] Last Admin: 07/15/18 09:45 Dose: 400 mg Melatonin (Melatonin) 9 mg PO BEDTIME [facility] Last Admin: 07/14/18 21:31 Dose: 9 mg Metformin HCl (Glucophage) 1,000 mg PO BIDMEALS [facility] Last Admin: 07/15/18 07:52 Dose: 1,000 mg Metoprolol Succinate (Toprol Xl) 25 mg PO QAM [facility] Last Admin: 07/15/18 10:52 Dose: 25 mg Ondansetron HCl (Zofran) 4 mg IV Q4H PRN PRN Reason: Nausea/Vomiting Oxybutynin Chloride (Oxybutynin) 5 mg PO BID [facility] Last Admin: 07/15/18 09:48 Dose: 5 mg Pantoprazole Sodium (Protonix) 40 mg PO ACBREAKFAST [facility] Last Admin: 07/15/18 07:52 Dose: 40 mg Senna/Docusate Sodium (Senna Plus) 1 tab PO BID PRN PRN Reason: Constipation Sodium Chloride (Saline Flush) 10 ml FLUSH ASDIRECTED PRN PRN Reason: Keep Vein Open Timolol Maleate (Timoptic 0.5% Ophth Soln) 0 ml EYERT [facility] Last Admin: 07/15/18 09:51 Dose: 1 drop Warfarin Sodium (Coumadin) 4 mg PO ONETIME ONE Stop: 07/15/18 12:21 Discontinued Medications Albuterol/Ipratropium (Duoneb 3.0-0.5 Mg/3 Ml) 3 ml NEB TID [facility] Last Admin: 07/13/18 20:33 Dose: 3 ml Sodium Chloride (Normal Saline) 1,000 mls @ 125 mls/hr IV ASDIRECTED [facility] Last Admin: 07/14/18 11:12 Dose: 125 mls/hr Magnesium Sulfate 2 gm/ Premix 50 mls @ 25 mls/hr IV Q6H [facility] Stop: 07/14/18 02:29 Last Admin: 07/14/18 00:30 Dose: 25 mls/hr Insulin Human Lispro (Humalog) 12 unit SUBCUT ONETIME ONE Stop: 07/13/18 21:03 Last Admin: 07/13/18 21:40 Dose: Not Given - Exam Quality Assessment: DVT Prophylaxis General: Alert, Cooperative, No Acute Distress. No: Oriented Lungs: Clear to Auscultation, Normal Respiratory Effort, Decreased Breath Sounds Cardiovascular: Regular Rate, Regular Rhythm, No Murmurs GI/Abdominal Exam: Soft, Non-Tender, No Organomegaly, No Distention Extremities: Non-Tender, No Pedal Edema - Problem List Review Problem List Initiated/Reviewed/Updated: Yes - My Orders Last 24 Hours: My Active Orders 07/14/18 14:00 Consult to Physical Therapy [PT Evaluation and Treatment] [CONS] Routine Convert IV to Saline Lock [OM.PC] Routine 07/15/18 12:20 Warfarin [Coumadin] 4 mg PO ONETIME ONE 07/15/18 16:30 GLUCOSE POC LAB TO COLLECT [POC] QIDACANDBED 07/15/18 21:00 GLUCOSE POC LAB TO COLLECT [POC] QIDACANDBED 07/16/18 05:11 INR,PT,PROTHROMBIN TIME [COAG] AM 07/16/18 07:30 GLUCOSE POC LAB TO COLLECT [POC] QIDACANDBED 07/16/18 11:30 GLUCOSE POC LAB TO COLLECT [POC] QIDACANDBED 07/16/18 16:30 GLUCOSE POC LAB TO COLLECT [POC] QIDACANDBED 07/16/18 21:00 GLUCOSE POC LAB TO COLLECT [POC] QIDACANDBED 07/17/18 07:30 GLUCOSE POC LAB TO COLLECT [POC] QIDACANDBED 07/17/18 11:30 GLUCOSE POC LAB TO COLLECT [POC] QIDACANDBED 07/17/18 16:30 GLUCOSE POC LAB TO COLLECT [POC] QIDACANDBED 07/17/18 21:00 GLUCOSE POC LAB TO COLLECT [POC] QIDACANDBED 07/18/18 07:30 GLUCOSE POC LAB TO COLLECT [POC] QIDACANDBED 07/18/18 11:30 GLUCOSE POC LAB TO COLLECT [POC] QIDACANDBED 07/18/18 16:30 GLUCOSE POC LAB TO COLLECT [POC] QIDACANDBED - Plan Plan:: ASSESSMENT AND PLAN RIGHT LUNG PNEUMONIA-obvious infiltrate noted on chest x-ray from the clinic. Viral versus bacterial, normal white blood cell count and no history of recent significant temperature elevation. No evidence of significant sepsis at the present time. Stable since admission, cough improved. Blood culture showing no growth, sputum culture pending -Blood cultures pending -Sputum culture pending -Saline lock IV -IV Rocephin and azithromycin pending culture results LONG-TERM ORAL ANTICOAGULATION WITH WARFARIN-history of underlying atrial fibrillation, INR slightly elevated today -Warfarin 4 mg by mouth now -INR in a.m. CHRONIC KIDNEY DISEASE STAGE III -Closely monitor urine output and renal function during hospital stay MAINTENANCE ISSUES -DVT prophylaxis;Current therapy with warfarin should provide adequate DVT prophylaxis -GI prophylaxis;Not indicated -Davis catheter;Not indicated -Nutrition;Regular diet -Nicotine dependence;Not required CODE STATUS-FULL CODE ADMISSION STATUS-patient will be admitted to inpatient status, expect at least a 2 night hospital stay for evaluation and management of problems as outlined above. At the time of this admission I do not reasonably expected evaluation and management of this problem will require more than a 96 hour hospital stay. DISPOSITION-anticipate discharge to home after the hospital stay. PRIMARY CARE PROVIDER-Dr. Starr
[2018-07-15] MEDS: Acetaminophen/HYDROcodone 325-5 MG Tab PO PRN (13:33)
[2018-07-15] MEDS: cefTRIAXone 1 GM in Sodium Chloride 0.9% 50 ML IV SCH (16:36)
[2018-07-15] MEDS: Azithromycin 500 MG in Sodium Chloride 0.9% 250 ML IV SCH (17:33)
[2018-07-15] MEDS: Melatonin 3 MG Tab PO SCH (20:15)
[2018-07-15] MEDS: Latanoprost 0.005% Ophth Soln 2.5 ML Bottle EYERT SCH (20:16)
[2018-07-15] MEDS: Albuterol 0.083% 2.5 MG/3 ML Neb Soln NEB PRN (22:00)
[2018-07-16] MEDS: Albuterol 0.083% 2.5 MG/3 ML Neb Soln NEB PRN (02:28)
[2018-07-16] MEDS: Albuterol/Ipratropium 3.0-0.5 MG/3 ML Neb Soln NEB SCH (05:59)
[2018-07-16 08:14] VITALS: BP 153/45
[2018-07-16] MEDS: Divalproex Sodium Delayed-Release 250 MG Tab.CR PO SCH (08:16)
[2018-07-16] MEDS: Pantoprazole 40 MG Tab.CR PO SCH (08:16)
[2018-07-16] MEDS: metFORMIN 500 MG Tab PO SCH (08:16)
[2018-07-16] MEDS: Insulin Lispro 100 Unit/ML 3 ML KwikPen SUBCUT SCH ×2 (08:17→12:36)
[2018-07-16] MEDS: Acetaminophen/HYDROcodone 325-5 MG Tab PO PRN (08:32)
[2018-07-16] MEDS: Bumetanide 1 MG Tab PO SCH (08:40)
[2018-07-16] MEDS: Losartan 50 MG Tab PO SCH (08:42)
[2018-07-16] MEDS: DULoxetine 20 MG Cap PO SCH (08:43)
[2018-07-16] MEDS: Lactobacillus Rhamnosus GG (Probiotic) Cap PO SCH (08:43)
[2018-07-16] MEDS: Magnesium Oxide 400 MG Tab PO SCH (08:44)
[2018-07-16] MEDS: Gabapentin 100 MG Cap PO SCH (08:44)
[2018-07-16] MEDS: Metoprolol Succinate 25 MG Tab.ER PO SCH (08:45)
[2018-07-16] MEDS: Oxybutynin 5 MG Tab PO SCH (08:45)
[2018-07-16] MEDS: Timolol Maleate 0.5% Ophth Soln 5 ML Bottle EYERT SCH (08:47)
--- NOTE | 2018-07-16 11:01 | PCM.DCSUM1 ---
Discharge Summary - Hospital Course Brief History: Mr. Villar is an 82-year-old gentleman who was admitted as a direct admission from the clinic with shortness of breath and cough secondary to a right lung pneumonia. - Discharge Data Discharge Date: 07/16/18 Discharge Disposition: Home, W Home Health Agency 06 Condition: Fair - Discharge Diagnosis/Problem(s) (1) Pneumonia SNOMED Code(s): 589898954 ICD Code: J18.9 - PNEUMONIA, UNSPECIFIED ORGANISM Status: Acute Current Visit: Yes (2) Chronic kidney disease stage 3 SNOMED Code(s): 885854404 ICD Code: N18.3 - CHRONIC KIDNEY DISEASE, STAGE 3 (MODERATE) Status: Chronic Current Visit: No (3) Diabetes mellitus type II, controlled SNOMED Code(s): 35954753, 194287490 ICD Code: E11.9 - TYPE 2 DIABETES MELLITUS WITHOUT COMPLICATIONS Status: Chronic Priority: High Current Visit: No Qualifiers: Diabetes mellitus [facility] insulin use: without [facility] use Diabetes mellitus complication status: with kidney complications Diabetes mellitus complication detail: with chronic kidney disease Chronic kidney disease stage : stage 3 (moderate) Qualified Code(s): E11.22 - Type 2 diabetes mellitus with diabetic chronic kidney disease; N18.3 - Chronic kidney disease, stage 3 ( moderate) (4) Dementia SNOMED Code(s): 19934489 ICD Code: F03.90 - UNSPECIFIED DEMENTIA WITHOUT BEHAVIORAL DISTURBANCE Status: Chronic Priority: High Current Visit: No Qualifiers: Dementia type: vascular dementia Dementia behavioral disturbance: without behavioral disturbance Qualified Code(s): F01.50 - Vascular dementia without behavioral disturbance (5) COPD (chronic obstructive pulmonary disease) SNOMED Code(s): 75381491 ICD Code: J44.9 - CHRONIC OBSTRUCTIVE PULMONARY DISEASE, UNSPECIFIED Status : Chronic Priority: Medium Current Visit: No Qualifiers: COPD type: unspecified COPD Qualified Code(s): J44.9 - Chronic obstructive pulmonary disease, unspecified - Patient Summary/Data Consults: Consultations 07/14/18 14:00 Consult to Physical Therapy [PT Evaluation and Treatment] [CONS] Routine Please Evaluate and Treat. PT Reason for Consult: Weakness This query below is only for informational purposes and is not editable. Admission Diagnosis/Problem: Pneumonia Hospital Course: Mr. Villar is an 82-year-old gentleman who is admitted as a direct admission from the clinic for further evaluation and management of right lung pneumonia. He's not felt well over the past several days prior to admission and has had a relatively loose cough. There is been associated weakness with decrease in appetite. He does not think that he has had significant fever or chills. He was seen and evaluated in the clinic today chest x-ray shows evidence of an obvious right lung infiltrate. White blood cell count is within normal range and his vital signs are stable. On admission he was given IV fluids for hydration, blood and sputum cultures were obtained. He was started on IV antibiotic therapy for community-acquired pneumonia with azithromycin and Rocephin. He improved over the next few days of hospitalization and denied significant shortness of breath at the time of discharge. He had been more confused when seen in the clinic but this improved with management of the pneumonia. Blood cultures remain negative but sputum culture did grow out Escherichia coli and he will be discharged with an additional 3 days of oral antibiotic therapy with cephalexin. INR was elevated on admission and for the first few days of hospital stay his warfarin was held. On the day of discharge his INR was within therapeutic range and he will be discharged home on his usual dose of warfarin. Follow-up INR will be obtained on July 20. Follow-up appointment will be scheduled with his primary care provider within one week. Activity will be as tolerated and he will resume his usual diabetic diet. He will receive home care services after discharge to assisted living including home physical therapy and occupational therapy. - Patient Instructions Diet: Diabetic Diet Activity: As Tolerated Other/Special Instructions: Please schedule follow-up appointment with Dr. Starr within one week. Please arrange for INR on July 20. - Discharge Plan *PRESCRIPTION DRUG MONITORING PROGRAM REVIEWED*: Not Applicable *COPY OF PRESCRIPTION DRUG MONITORING REPORT IN PATIENT KAY: Not Applicable Prescriptions/Med Rec: Cephalexin [Keflex] 500 mg PO Q8H #9 capsule Lactobacillus Rhamnosus GG [Culturelle] 1 cap PO BID #60 cap Home Medications: Home Meds Albuterol Sulfate [Proair Hfa] 2 puff IH BID PRN 03/09/13 [History] Metoprolol Succinate [Toprol XL] 25 mg PO QAM 03/09/13 [History] Nitroglycerin [Nitrostat] 0.4 mg SL ASDIRECTED PRN 03/09/13 [History] Oxybutynin Chloride [Ditropan Xl] 10 mg PO QAM 03/09/13 [History] Pantoprazole [ProTONIX] 40 mg PO ACBREAKFAST #30 tab.cr 10/02/15 [Rx] Warfarin [Coumadin] 6 mg PO ASDIRECTED 02/04/16 [History] metFORMIN [Glucophage] 1,000 mg PO BIDMEALS 02/12/18 [History] Latanoprost 1 drop EYERT BEDTIME 02/16/18 [History] Losartan [Cozaar] 25 mg PO QAM 02/16/18 [History] Timolol Maleate 1 drop EYERT QAM 02/16/18 [History] Bumetanide 1 mg PO QAM 03/26/18 [History] Ergocalciferol (Vitamin D2) [Vitamin D2] 50,000 units PO WEEKLY 03/26/18 [ History] Ketoconazole [Nizoral 2% Crm] 1 applic TOP BID PRN 03/26/18 [History] Warfarin [Coumadin] 4 mg PO ASDIRECTED 03/27/18 [History] Divalproex Sodium 250 mg PO BIDMEALS #60 tab.cr 03/28/18 [Rx] Melatonin 9 mg PO BEDTIME #90 tablet 03/28/18 [Rx] Gabapentin [Neurontin] 100 mg PO BID #60 capsule 04/09/18 [Rx] Acetaminophen 500 mg PO Q4H PRN 07/13/18 [History] Alum Hydrox/Mag Hydrox/Simeth [Maalox Advanced] 10 ml PO Q6H PRN 07/13/18 [ History] Bacitracin [Bacitracin Oint] 1 applic TOP BID PRN 07/13/18 [History] Bisacodyl 1 supp RECTAL BID PRN 07/13/18 [History] DULoxetine HCl [Duloxetine HCl] 20 mg PO DAILY 07/13/18 [History] Dextran 70/Hypromellose [Artificial Tears] 1 each OP QID PRN 07/13/18 [History] Dextromethorphan/guaiFENesin [Robitussin DM] 10 ml PO Q4H PRN 07/13/18 [History] Hydrocodone/Acetaminophen [Hydrocodon-Acetaminophen 5-325] 1 tab PO Q6H PRN 09/26 [History] Ipratropium/Albuterol Sulfate [Iprat-Albut 0.5-3(2.5) MG/3 ML] 1 inh NEB TID 09/26 [History] Loperamide [Imodium] 4 mg PO ASDIRECTED PRN 07/13/18 [History] Magnesium Hydroxide [Milk of Magnesia] 30 ml PO DAILY PRN 07/13/18 [History] Menthol [Bengay] 1 applic TOP TID PRN 07/13/18 [History] Trolamine Salicylate/Aloe Vera [Aspercreme 10%] 1 applic TOP ASDIRECTED PRN 09/26 [History] Vits A and D/White Pet/Lanolin [A and D Ointment] 1 applic TOP ASDIRECTED PRN [History] Cephalexin [Keflex] 500 mg PO Q8H #9 capsule 07/16/18 [Rx] Lactobacillus Rhamnosus GG [Culturelle] 1 cap PO BID #60 cap 07/16/18 [Rx] Patient Handouts: Community-Acquired Pneumonia, Adult, [id number] - Discharge Summary/Plan Comment DC Time >30 min.: No - Patient Data Vitals - Most Recent: Last Vital Signs Temp 97.3 F 07/16/18 08:11 Pulse 61 07/16/18 08:45 Resp 18 07/16/18 08:11 BP 153/45 H 07/16/18 08:45 Pulse Ox 98 07/16/18 08:11 Weight - Most Recent: 142 lb 14.4 oz I&O - Last 24 hours: Intake & Output 07/15/18 07/16/18 07/16/18 22:59 06:59 14:59 Intake Total 1330 120 240 Output Total 100 Balance 1330 120 140 Lab Results - Last 24 hrs: Laboratory Results - last 24 hr 07/16/18 Range/Units 05:00 PT 28.8 H (9.5-12.0) sec INR 2.77 H (0.80-1.20) HERACLIO Results - Last 24 hrs: Microbiology 07/13/18 22:11 Gram Stain - Final Sputum - Expectorated Respiratory Culture - Final Escherichia Coli 07/13/18 17:10 Aerobic Blood Culture - Preliminary Blood - Arm, Right NO GROWTH AFTER 2 DAYS Anaerobic Blood Culture - Preliminary NO GROWTH AFTER 2 DAYS 07/13/18 17:00 Aerobic Blood Culture - Preliminary Blood - Arm, Right NO GROWTH AFTER 2 DAYS Anaerobic Blood Culture - Preliminary NO GROWTH AFTER 2 DAYS Med Orders - Current: Current Medications Acetaminophen (Tylenol) 650 mg PO Q4H PRN PRN Reason: Pain (Mild 1-3)/fever Last Admin: 07/14/18 11:29 Dose: 325 mg Hydrocodone Bitart/Acetaminophen ([place] 325-5 Mg) 1 tab PO Q6H PRN PRN Reason: Pain Last Admin: 07/16/18 08:32 Dose: 1 tab Albuterol (Proventil Neb Soln) 2.5 mg NEB Q4H PRN PRN Reason: Shortness Of Breath/wheezing Last Admin: 07/16/18 02:28 Dose: 2.5 mg Albuterol/Ipratropium (Duoneb 3.0-0.5 Mg/3 Ml) 3 ml NEB TIDRT [facility] Last Admin: 07/16/18 05:59 Dose: 3 ml Bumetanide (Bumex) 1 mg PO QAM [facility] Last Admin: 07/16/18 08:40 Dose: 1 mg Dextrose (Glutose 15) 15 gm PO ONETIME PRN PRN Reason: Hypoglycemia Dextrose/Water (Dextrose 50% In Water) 50 ml IV ONETIME PRN PRN Reason: Hypoglycemia Divalproex Sodium (Divalproex Sodium) 250 mg PO BIDMEALS [facility] Last Admin: 07/16/18 08:16 Dose: 250 mg Duloxetine HCl (Cymbalta) 20 mg PO DAILY [facility] Last Admin: 07/16/18 08:43 Dose: 20 mg Gabapentin (Neurontin) 100 mg PO BID [facility] Last Admin: 07/16/18 08:44 Dose: 100 mg Guaifenesin/Dextromethorphan (Robitussin Dm) 10 ml PO Q4H PRN PRN Reason: Cough Last Admin: 07/15/18 07:00 Dose: 10 ml Azithromycin 500 mg/ Sodium (Chloride) 250 mls @ 250 mls/hr IV Q24H [facility] Last Admin: 07/15/18 17:33 Dose: 250 mls/hr Ceftriaxone Sodium 1 gm/ (Sodium Chloride) 50 mls @ 100 mls/hr IV Q24H [facility] Last Admin: 07/15/18 16:36 Dose: 100 mls/hr Insulin Human Lispro (Humalog) 0 unit SUBCUT QIDACANDBED [facility]; Protocol Last Admin: 07/16/18 08:17 Dose: 2 units Lactobacillus Rhamnosus (Culturelle) 1 cap PO BID [facility] Last Admin: 07/16/18 08:43 Dose: 1 cap Latanoprost (Xalatan 0.005% Ophth Soln) 0 ml EYERT BEDTIME [facility] Last Admin: 07/15/18 20:16 Dose: 1 drop Losartan Potassium (Cozaar) 25 mg PO DAILY [facility] Last Admin: 07/16/18 08:42 Dose: 25 mg Magnesium Oxide (Magnesium Oxide) 400 mg PO BID [facility] Last Admin: 07/16/18 08:44 Dose: 400 mg Melatonin (Melatonin) 9 mg PO BEDTIME [facility] Last Admin: 07/15/18 20:15 Dose: Not Given Metformin HCl (Glucophage) 1,000 mg PO BIDMEALS [facility] Last Admin: 07/16/18 08:16 Dose: 1,000 mg Metoprolol Succinate (Toprol Xl) 25 mg PO QAM [facility] Last Admin: 07/16/18 08:45 Dose: 25 mg Ondansetron HCl (Zofran) 4 mg IV Q4H PRN PRN Reason: Nausea/Vomiting Oxybutynin Chloride (Oxybutynin) 5 mg PO BID [facility] Last Admin: 07/16/18 08:45 Dose: 5 mg Pantoprazole Sodium (Protonix) 40 mg PO ACBREAKFAST [facility] Last Admin: 07/16/18 08:16 Dose: 40 mg Senna/Docusate Sodium (Senna Plus) 1 tab PO BID PRN PRN Reason: Constipation Sodium Chloride (Saline Flush) 10 ml FLUSH ASDIRECTED PRN PRN Reason: Keep Vein Open Timolol Maleate (Timoptic 0.5% Ophth Soln) 0 ml EYERT QAM [facility] Last Admin: 07/16/18 08:47 Dose: 1 drop Discontinued Medications Albuterol/Ipratropium (Duoneb 3.0-0.5 Mg/3 Ml) 3 ml NEB TID [facility] Last Admin: 07/13/18 20:33 Dose: 3 ml Sodium Chloride (Normal Saline) 1,000 mls @ 125 mls/hr IV ASDIRECTED [facility] Last Admin: 07/14/18 11:12 Dose: 125 mls/hr Magnesium Sulfate 2 gm/ Premix 50 mls @ 25 mls/hr IV Q6H [facility] Stop: 07/14/18 02:29 Last Admin: 07/14/18 00:30 Dose: 25 mls/hr Insulin Human Lispro (Humalog) 12 unit SUBCUT ONETIME ONE Stop: 07/13/18 21:03 Last Admin: 07/13/18 21:40 Dose: Not Given Warfarin Sodium (Coumadin) 4 mg PO ONETIME ONE Stop: 07/15/18 13:01 Last Admin: 07/15/18 13:25 Dose: 4 mg - Exam Quality Assessment: Reports: DVT Prophylaxis General: Reports: Alert, Cooperative, No Acute Distress Lungs: Reports: Clear to Auscultation, Normal Respiratory Effort, Decreased Breath Sounds Cardiovascular: Reports: Regular Rate, No Murmurs, Irregular Rhythm GI/Abdominal Exam: Soft, Non-Tender, No Organomegaly, No Distention *Q Meaningful Use (DIS) - VTE *Q VTE Pharmacological Contraindications *Q: High INR Value
== END 2018-07-16 13:19 | disposition home health service (06) | DRG 179 ==
LOC: JP.MS 16:38
PROVIDERS: ADMIT Hospitalist; ATTEND Hospitalist
DX: J15.5 Pneumonia due to Escherichia coli (principal); I12.9 Hypertensive chronic kidney disease with stage 1 through stage 4 chronic kidney disease, or unspecified chronic kidney disease; E11.22 Type 2 diabetes mellitus with diabetic chronic kidney disease; N18.3 Chronic kidney disease, stage 3 (moderate); Z79.84 Long term (current) use of oral hypoglycemic drugs; E11.51 Type 2 diabetes mellitus with diabetic peripheral angiopathy without gangrene; I48.91 Unspecified atrial fibrillation; Z79.01 Long term (current) use of anticoagulants; Z86.73 Personal history of transient ischemic attack (TIA), and cerebral infarction without residual deficits; R09.3 Abnormal sputum; J44.9 Chronic obstructive pulmonary disease, unspecified; F01.50 Vascular dementia, unspecified severity, without behavioral disturbance, psychotic disturbance, mood disturbance, and anxiety; E78.00 Pure hypercholesterolemia, unspecified; I25.2 Old myocardial infarction; K21.9 Gastro-esophageal reflux disease without esophagitis; K44.9 Diaphragmatic hernia without obstruction or gangrene; R32 Unspecified urinary incontinence; I70.1 Atherosclerosis of renal artery; M54.9 Dorsalgia, unspecified; G89.29 Other chronic pain; R79.1 Abnormal coagulation profile; L30.9 Dermatitis, unspecified; Z95.1 Presence of aortocoronary bypass graft; Z95.0 Presence of cardiac pacemaker; Z95.5 Presence of coronary angioplasty implant and graft; H54.7 Unspecified visual loss; Z79.52 Long term (current) use of systemic steroids; Z88.8 Allergy status to other drugs, medicaments and biological substances; Z90.49 Acquired absence of other specified parts of digestive tract
CPT/HCPCS: 36415; 80048; 82962; 83735; 85025; 85610; 87040; 87070; 87077; 87186; 87205; 94640; 94762; 97110-GP; 97162-GP; 97530-GP; A9270-GY; J0456; J0696; J1815; J1815-GY; J3475; J7030; J7050; J7620-GY

== ENCOUNTER 2018-09-07 06:12 | Emergency (ER) | payer MEDICARE, BC, MEDICAID ==
[2018-09-07] MEDS ORDERED: Sodium Chloride 0.9% 10 ML Syringe FLUSH PRN (06:35)
[2018-09-07] MEDS ORDERED: methylPREDNISolone Sodium Succinate 125 MG/2 ML SDV IVPUSH ONE (06:35)
--- NOTE | 2018-09-07 06:39 | EDM.PDOC ---
<OfficerBret - Last Filed: 09/07/18 06:36> ED HPI GENERAL MEDICAL PROBLEM - General Chief Complaint: Respiratory Problem Stated Complaint: [facility] Time Seen by Provider: 09/07/18 06:27 Source of Information: Reports: Patient, EMS, RN Notes Reviewed History Limitations: Reports: No Limitations - History of Present Illness INITIAL COMMENTS - FREE TEXT/NARRATIVE: 82-year-old gentleman presents emergency department today via EMS services from the senior care. He is concerned that he may have pneumonia senior care also concerned because he has had hypoxic events while at the senior care. He normally does use oxygen as needed however he will have desaturating events down into the 70s and then quickly returns back to mid 90s. He has a known history of asthma states he does have a cough and he's felt more tight in the chest in usual. He feels he does not get to use his albuterol as often as he would like to in the senior care lower back pain Pain Score (Numeric/FACES): 7 - Related Data Allergies Allergy/AdvReac Type Severity Reaction Status Date / Time ticlopidine HCl [From Ticlid] Allergy Hives Verified 03/26/18 21:29 atorvastatin calcium AdvReac Muscle Verified 03/26/18 21:29 [From Lipitor] Aches quinapril HCl [From Accupril] AdvReac Cough Verified 03/26/18 21:29 Home Meds: Home Meds Albuterol Sulfate [Proair Hfa] 2 puff IH TID 03/09/13 [History] Metoprolol Succinate [Toprol XL] 25 mg PO QAM 03/09/13 [History] Nitroglycerin [Nitrostat] 0.4 mg SL ASDIRECTED PRN 03/09/13 [History] Warfarin [Coumadin] 4 mg PO ASDIRECTED 02/04/16 [History] Losartan [Cozaar] 25 mg PO QAM 02/16/18 [History] Timolol Maleate 1 drop EYERT QAM 02/16/18 [History] Ergocalciferol (Vitamin D2) [Vitamin D2] 50,000 units PO DAILY 03/26/18 [History ] Ketoconazole [Nizoral 2% Crm] 1 applic TOP BID PRN 03/26/18 [History] Warfarin [Coumadin] 2 mg PO ASDIRECTED 03/27/18 [History] Divalproex Sodium 250 mg PO BIDMEALS #60 tab.cr 03/28/18 [Rx] Gabapentin [Neurontin] 100 mg PO BID #60 capsule 04/09/18 [Rx] Acetaminophen 325 mg PO BID 07/13/18 [History] Alum Hydrox/Mag Hydrox/Simeth [Maalox Advanced] 10 ml PO Q6H PRN 07/13/18 [ History] Bacitracin [Bacitracin Oint] 1 applic TOP BID PRN 07/13/18 [History] Bisacodyl 1 supp RECTAL BID PRN 07/13/18 [History] Dextran 70/Hypromellose [Artificial Tears] 1 each OP QID PRN 07/13/18 [History] Dextromethorphan/guaiFENesin [Robitussin DM] 10 ml PO Q4H PRN 07/13/18 [History] Loperamide [Imodium] 4 mg PO ASDIRECTED PRN 07/13/18 [History] Magnesium Hydroxide [Milk of Magnesia] 30 ml PO DAILY PRN 07/13/18 [History] Vits A and D/White Pet/Lanolin [A and D Ointment] 1 applic TOP ASDIRECTED PRN [History] Aspirin 81 mg PO DAILY 09/07/18 [History] Cyanocobalamin (Vitamin B-12) [Cyanocobalamin Injection] 1,000 mcg IM ASDIRECTED 09/07/18 [History] Glimepiride 4 mg PO WITHBREAKFAST 09/07/18 [History] Ipratropium/Albuterol Sulfate [Iprat-Albut 0.5-3(2.5) MG/3 ML] 3 ml IH TID 09/07 [History] Latanoprost 1 drop TOP DAILY 09/07/18 [History] Mirabegron [Myrbetriq] 25 mg PO DAILY 09/07/18 [History] Omeprazole 40 mg PO DAILY 09/07/18 [History] Past Medical History HEENT History: Reports: Impaired Vision, Other (See Below) Other HEENT History: pt wears reading glasses Cardiovascular History: Reports: Afib, Aneurysm, Bypass, CAD, High Cholesterol, Hypertension, [place], Pacemaker, Stents Other Cardiovascular History: peripheral vascular disease. stenosis of right carotid artery Respiratory History: Reports: Asthma, COPD Other Respiratory History: pulmonary hypertension Gastrointestinal History: Reports: GERD, Hiatal Hernia Genitourinary History: Reports: Renal Disease, Urinary Incontinence Other Genitourinary History: renal artery stenosis Musculoskeletal History: Reports: Back Pain, Chronic, Other (See Below) Other Musculoskeletal History: nerv stimulator implanted in back. Neurological History: Reports: TIA Other Neuro History: vascular dementia Psychiatric History: Reports: Dementia Other Psychiatric History: on set of dementia Endocrine/Metabolic History: Reports: Diabetes, Type II Hematologic History: Reports: None Dermatologic History: Reports: Eczema - Infectious Disease History Infectious Disease History: Reports: Chicken Pox, Measles, Shingles Other Infectious Disease History: unable to obtain at this time - Past Surgical History Head Surgeries/Procedures: Reports: None Cardiovascular Surgical History: Reports: Coronary Artery Bypass, Coronary Artery Stent GI Surgical History: Reports: Cholecystectomy Neurological Surgical History: Reports: Vertebroplasty Musculoskeletal Surgical History: Reports: Shoulder Surgery Social & Family History - Family History Family Medical History: Noncontributory Cardiac: Reports: [place] Musculoskeletal: Reports: Arthritis Neurological: Reports: Neuropathy, Diabetic Endocrine/Metabolic: Reports: Diabetes, type II - Tobacco Use Smoking Status *Q: Never Smoker - Caffeine Use Caffeine Use: Reports: Soda - Recreational Drug Use Recreational Drug Use: No - Living Situation & Occupation Living situation: Reports: (lives with in [place], [place]) Occupation: Disabled ED ROS GENERAL - Review of Systems Review Of Systems: See Below Constitutional: Reports: No Symptoms HEENT: Reports: No Symptoms Respiratory: Reports: Shortness of Breath, Wheezing, Cough, Sputum Cardiovascular: Reports: Dyspnea on Exertion GI/Abdominal: Reports: No Symptoms : Reports: No Symptoms Musculoskeletal: Reports: No Symptoms Skin: Reports: No Symptoms ED EXAM, GENERAL - Physical Exam Exam: See Below Exam Limited By: No Limitations General Appearance: Alert, WD/WN, No Apparent Distress Respiratory/Chest: No Respiratory Distress, Decreased Breath Sounds, Wheezing Cardiovascular: No Murmur, Irregularly Irregular GI/Abdominal: Soft, Non-Tender Course - Vital Signs Last Recorded V/S: Last Vital Signs Temp 95.7 F 09/07/18 06:27 Pulse 62 09/07/18 06:27 Resp 12 09/07/18 08:41 BP 143/68 H 09/07/18 08:41 Pulse Ox 95 09/07/18 08:41 - Orders/Labs/Meds Orders: Active Orders 24 hr Category Date Time Status Peripheral IV Care [RC] . DIRECTED Care 09/07/18 06:35 Active RT Aerosol Therapy [RC] ASDIRECTED Care 09/07/18 07:09 Active Peripheral IV Insertion Adult [OM.PC] Urgent Oth 09/07/18 06:35 Ordered Labs: Laboratory Tests 09/07/18 09/07/18 09/07/18 Range/Units 06:39 07:00 07:00 WBC 3.6 L (4.5-11.0) K/uL RBC 3.38 L (4.30-5.90) M/uL Hgb 10.2 L (12.0-15.0) g/dL Hct 33.3 L (40.0-54.0) % MCV 99 H (80-98) fL MCH 30 (27-31) pg MCHC 31 L (32-36) % Plt Count 114 L (150-400) K/uL Neut % (Auto) 52 (36-66) % Lymph % (Auto) 31 (24-44) % Buchanan % (Auto) 8 H (2-6) % Eos % (Auto) 8 H (2-4) % Baso % (Auto) 1 (0-1) % PT (9.5-12.0) sec INR (0.80-1.20) Puncture Site Rt radial ABG pH 7.417 (7.350-7.450) ABG pCO2 40.6 (35.0-42.0) mmHg ABG pO2 64.5 L (75.0-100.0) mmHg ABG HCO3 25.7 (22.0-26.0) mmol/L ABG Total CO2 23.8 (23.0-27.0) mmol/L ABG O2 Saturation 90.5 L (95.0-98.0) % ABG O2 Content 12.6 L (15.0-23.0) %vol ABG Base Excess 1.6 mm/L ABG Hemoglobin 10.1 L (13.5-18.0) g/dL ABG Oxyhemoglobin 88.4 % ABG Carboxyhemoglobin 1.5 (0.0-1.6) % ABG Methemoglobin 0.8 % Beltran Test Passed O2 Delivery Device Room air Oxygen Flow Rate 0 L Sodium 138 L (140-148) mmol/L Potassium 4.6 (3.6-5.2) mmol/L Chloride 103 (100-108) mmol/L Carbon Dioxide 26 (21-32) mmol/L Anion Gap 13.6 (5.0-14.0) mmol/L BUN 32 H (7-18) mg/dL Creatinine 1.2 (0.8-1.3) mg/dL Est Cr Clr Drug Dosing 44.31 mL/min Estimated GFR (MDRD) 58 L (>60) Glucose 79 (74-106) mg/dL Calcium 9.2 (8.5-10.1) mg/dL Total Bilirubin 0.3 (0.2-1.0) mg/dL AST 20 (15-37) U/L ALT 12 (12-78) U/L Alkaline Phosphatase 77 (46-116) U/L Troponin I 0.042 (0.000-0.056) ng/mL Total Protein 7.9 (6.4-8.2) g/dL Albumin 2.8 L (3.4-5.0) g/dL Globulin 5.1 H (2.3-3.5) g/dL Albumin/Globulin Ratio 0.6 L (1.2-2.2) 09/07/18 Range/Units 07:00 WBC (4.5-11.0) K/uL RBC (4.30-5.90) M/uL Hgb (12.0-15.0) g/dL Hct (40.0-54.0) % MCV (80-98) fL MCH (27-31) pg MCHC (32-36) % Plt Count (150-400) K/uL Neut % (Auto) (36-66) % Lymph % (Auto) (24-44) % Buchanan % (Auto) (2-6) % Eos % (Auto) (2-4) % Baso % (Auto) (0-1) % PT 26.3 H (9.5-12.0) sec INR 2.52 H (0.80-1.20) Puncture Site ABG pH (7.350-7.450) ABG pCO2 (35.0-42.0) mmHg ABG pO2 (75.0-100.0) mmHg ABG HCO3 (22.0-26.0) mmol/L ABG Total CO2 (23.0-27.0) mmol/L ABG O2 Saturation (95.0-98.0) % ABG O2 Content (15.0-23.0) %vol ABG Base Excess mm/L ABG Hemoglobin (13.5-18.0) g/dL ABG Oxyhemoglobin % ABG Carboxyhemoglobin (0.0-1.6) % ABG Methemoglobin % Beltran Test O2 Delivery Device Oxygen Flow Rate L Sodium (140-148) mmol/L Potassium (3.6-5.2) mmol/L Chloride (100-108) mmol/L Carbon Dioxide (21-32) mmol/L Anion Gap (5.0-14.0) mmol/L BUN (7-18) mg/dL Creatinine (0.8-1.3) mg/dL Est Cr Clr Drug Dosing mL/min Estimated GFR (MDRD) (>60) Glucose (74-106) mg/dL Calcium (8.5-10.1) mg/dL Total Bilirubin (0.2-1.0) mg/dL AST (15-37) U/L ALT (12-78) U/L Alkaline Phosphatase (46-116) U/L Troponin I (0.000-0.056) ng/mL Total Protein (6.4-8.2) g/dL Albumin (3.4-5.0) g/dL Globulin (2.3-3.5) g/dL Albumin/Globulin Ratio (1.2-2.2) Meds: Medications Discontinued Medications Generic Name Dose Route Start Last Admin Trade Name Eder PRN Reason Stop Dose Admin Albuterol/Ipratropium 3 ml 09/07/18 07:09 09/07/18 07:40 Duoneb 3.0-0.5 Mg/3 Ml NEB 09/07/18 07:10 3 ml ONETIME ONE Administration Glimepiride 4 mg 09/08/18 09:14 Amaryl PO 09/08/18 09:15 ONETIME ONE Meropenem 1 gm/ Sodium 50 mls @ 100 mls/hr 09/07/18 08:15 09/07/18 08:24 Chloride IV 09/07/18 08:44 100 mls/hr ONETIME ONE Administration Levofloxacin/Dextrose 500 mg/ 100 mls @ 100 mls/hr 09/07/18 08:29 09/07/18 08 :40 Premix IV 09/07/18 09:28 100 mls/hr ONETIME ONE Administration Methylprednisolone Sodium Succinate 125 mg 09/07/18 06:35 09/07/18 07:02 Solu-Medrol IVPUSH 09/07/18 06:36 125 mg ONETIME ONE Administration Sodium Chloride 10 ml 09/07/18 06:35 09/07/18 07:07 Saline Flush FLUSH 10 ml ASDIRECTED PRN Administration Keep Vein Open Departure - Departure Disposition: DC/Tfer to [facility] Clinical Impression: Right lower lobe pneumonia Qualifiers: Pneumonia type: due to unspecified organism Qualified Code(s): J18.1 - Lobar pneumonia, unspecified organism - Discharge Information Instructions: Community-Acquired Pneumonia, Adult, [id number] Referrals: PCP,None [Primary Care Provider] - Forms: ED Department Discharge Care Plan Goals: Take Levaquin 500 mg daily for 10 days, use oxygen as needed to maintain saturations at 88% or better, and may use albuterol inhaler as needed and may keep at bedside. Return if worsening despite treatment. Oral Levaquin should start on 08 September. - My Orders Last 24 Hours: My Active Orders 09/07/18 07:09 RT Aerosol Therapy [RC] ASDIRECTED - Assessment/Plan Last 24 Hours: My Active Orders 09/07/18 07:09 RT Aerosol Therapy [RC] ASDIRECTED <Vinay Rivera - Last Filed: 09/07/18 13:24> Course - Re-Assessments/Exams Free Text/Narrative Re-Assessment/Exam: 09/07/18 07:30 After labs are drawn the patient was sent back for a two-view chest x-ray. ABGs drawn as well. O2 was 65, otherwise ABGs were relatively normal. White count and hemoglobin were consistent with his baseline levels over the past several months. Hemoglobin 10.s, white count 3.6. 09/07/18 07:31 Solu-Medrol [address] Francisr was given IV prior to his chest x- ray. After return from the x-ray a DuoNeb was given. Patient continued to alternate between normal O2 levels and dropping into the 70s and low 80s at times all on room air. 09/07/18 08:36 After the nebulizer patient stabilized and his O2 saturations remained in the low to mid 90s on room air. Chest x-ray showed again a significant right lower lobe pneumonia. 1 g of meropenem along with 500 mg of IV Levaquin was given. I recommended to the patient that he be admitted but he was adamant about trying outpatient therapy. I did call his assisted-living caretakers, and he does have as needed oxygen, nebulizers and albuterol inhaler and can be treated with oral Levaquin and return if worsening. Departure - Departure Time of Disposition: 10:38 Condition: Fair
[2018-09-07] MEDS ORDERED: Albuterol/Ipratropium 3.0-0.5 MG/3 ML Neb Soln NEB ONE (07:09)
--- NOTE | 2018-09-07 07:53 | CRLCR ---
INDICATION: Shortness of breath. COMPARISON: Chest radiograph July 05, 2018. TECHNIQUE: Two-view chest. FINDINGS: Pneumonic infiltrates lower lobe right lung; relatively new when compared to July 05, 2018. Patchy infiltrates left lower lobe. Status post median sternotomy. Normal size cardiac silhouette. Cardiac pacer in place. IMPRESSION: Pneumonic infiltrates right lower lobe. Dictated by Sandeep Cabezas MD @ Sep 07 2018 7:49AM Signed by Dr. Sandeep Cabezas @ Sep 07 2018 7:51AM
[2018-09-07] MEDS ORDERED: Levofloxacin/Dextrose 5%-Water 500 MG in Premix Bag 1 BAG IV ONE (08:29)
[2018-09-07 08:42] VITALS: BP 143/68
[2018-09-08] MEDS ORDERED: Glimepiride 2 MG Tab PO ONE (09:14)
== END 2018-09-07 10:39 ==
LOC: JP.ED 06:12
DX: J18.1 Lobar pneumonia, unspecified organism (principal); E11.9 Type 2 diabetes mellitus without complications; I48.91 Unspecified atrial fibrillation; E78.00 Pure hypercholesterolemia, unspecified; I10 Essential (primary) hypertension; I25.2 Old myocardial infarction; J44.9 Chronic obstructive pulmonary disease, unspecified; Z79.899 Other long term (current) drug therapy; Z79.01 Long term (current) use of anticoagulants
CPT/HCPCS: 36415; 36600; 71046; 80053; 82803; 84484; 85025; 85610; 94640; 96365; 96367; 96375; 99285; J1956; J2185; J2930; J7050; J7620-GY

== ENCOUNTER 2018-09-25 13:00 | Inpatient (IN) | payer MEDICARE, BC ==
--- NOTE | 2018-09-25 13:17 | EDM.PDOC ---
ED HPI GENERAL MEDICAL PROBLEM - General Chief Complaint: Respiratory Problem Stated Complaint: SHORTNESS OF BREATH Time Seen by Provider: 09/25/18 13:11 Source of Information: Reports: Patient, EMS History Limitations: Reports: Altered Mental Status - History of Present Illness INITIAL COMMENTS - FREE TEXT/NARRATIVE: Patient presents by ambulance from his care setting because of increased confusion, lethargy, shortness of breath. He has a history of chronic back pain and was recently started on morphine. He has been less alert although there were concerns about him being able to sleep last night despite all this. Due to the constellation of symptoms, he was transported by ambulance this morning. Due to his mental status, the patient is not a helpful historian. Onset: Gradual Duration: Day(s): (2) Location: Reports: Generalized Severity: Moderate Improves with: Reports: None Worsens with: Reports: None Associated Symptoms: Reports: Confusion, Malaise, Weakness Treatments KAI WHAKARURUHAU: Reports: Oxygen Lower Back Pain Score (Numeric/FACES): 8 - Related Data Allergies Allergy/AdvReac Type Severity Reaction Status Date / Time ticlopidine HCl [From Ticlid] Allergy Hives Verified 09/25/18 13:25 atorvastatin calcium AdvReac Muscle Verified 09/25/18 13:25 [From Lipitor] Aches quinapril HCl [From Accupril] AdvReac Cough Verified 09/25/18 13:25 Home Meds: Home Meds Albuterol Sulfate [Proair Hfa] 2 puff IH TID 03/09/13 [History] Metoprolol Succinate [Toprol XL] 25 mg PO QAM 03/09/13 [History] Nitroglycerin [Nitrostat] 0.4 mg SL ASDIRECTED PRN 03/09/13 [History] Warfarin [Coumadin] 4 mg PO ASDIRECTED 02/04/16 [History] Losartan [Cozaar] 25 mg PO QAM 02/16/18 [History] Timolol Maleate 1 drop EYERT QAM 02/16/18 [History] Ergocalciferol (Vitamin D2) [Vitamin D2] 50,000 units PO DAILY 03/26/18 [History ] Ketoconazole [Nizoral 2% Crm] 1 applic TOP BID PRN 03/26/18 [History] Warfarin [Coumadin] 2 mg PO ASDIRECTED 03/27/18 [History] Divalproex Sodium 250 mg PO BIDMEALS #60 tab.cr 03/28/18 [Rx] Gabapentin [Neurontin] 100 mg PO BID #60 capsule 04/09/18 [Rx] Acetaminophen 325 mg PO BID 07/13/18 [History] Alum Hydrox/Mag Hydrox/Simeth [Maalox Advanced] 10 ml PO Q6H PRN 07/13/18 [ History] Bacitracin [Bacitracin Oint] 1 applic TOP BID PRN 07/13/18 [History] Bisacodyl 1 supp RECTAL BID PRN 07/13/18 [History] Dextran 70/Hypromellose [Artificial Tears] 1 each OP QID PRN 07/13/18 [History] Dextromethorphan/guaiFENesin [Robitussin DM] 10 ml PO Q4H PRN 07/13/18 [History] Loperamide [Imodium] 4 mg PO ASDIRECTED PRN 07/13/18 [History] Magnesium Hydroxide [Milk of Magnesia] 30 ml PO DAILY PRN 07/13/18 [History] Vits A and D/White Pet/Lanolin [A and D Ointment] 1 applic TOP ASDIRECTED PRN [History] Aspirin 81 mg PO DAILY 09/07/18 [History] Cyanocobalamin (Vitamin B-12) [Cyanocobalamin Injection] 1,000 mcg IM ASDIRECTED 09/07/18 [History] Glimepiride 4 mg PO WITHBREAKFAST 09/07/18 [History] Ipratropium/Albuterol Sulfate [Iprat-Albut 0.5-3(2.5) MG/3 ML] 3 ml IH TID 09/07 [History] Latanoprost 1 drop TOP DAILY 09/07/18 [History] Mirabegron [Myrbetriq] 25 mg PO DAILY 09/07/18 [History] Omeprazole 40 mg PO DAILY 09/07/18 [History] Morphine Sulfate [Morphine Sulfate ER] 15 mg PO BID 09/25/18 [History] Past Medical History HEENT History: Reports: Impaired Vision, Other (See Below) Other HEENT History: pt wears reading glasses Cardiovascular History: Reports: Afib, Aneurysm, Bypass, CAD, High Cholesterol, Hypertension, [place], Pacemaker, Stents Other Cardiovascular History: peripheral vascular disease. stenosis of right carotid artery Respiratory History: Reports: Asthma, COPD Other Respiratory History: pulmonary hypertension Gastrointestinal History: Reports: GERD, Hiatal Hernia Genitourinary History: Reports: Renal Disease, Urinary Incontinence Other Genitourinary History: renal artery stenosis Musculoskeletal History: Reports: Back Pain, Chronic, Other (See Below) Other Musculoskeletal History: nerv stimulator implanted in back. Neurological History: Reports: TIA Other Neuro History: vascular dementia Psychiatric History: Reports: Dementia Other Psychiatric History: on set of dementia Endocrine/Metabolic History: Reports: Diabetes, Type II Hematologic History: Reports: None Dermatologic History: Reports: Eczema - Infectious Disease History Infectious Disease History: Reports: Chicken Pox, Measles, Shingles Other Infectious Disease History: unable to obtain at this time - Past Surgical History Head Surgeries/Procedures: Reports: None Cardiovascular Surgical History: Reports: Coronary Artery Bypass, Coronary Artery Stent GI Surgical History: Reports: Cholecystectomy Neurological Surgical History: Reports: Vertebroplasty Musculoskeletal Surgical History: Reports: Shoulder Surgery Social & Family History - Family History Family Medical History: Noncontributory Cardiac: Reports: [place] Musculoskeletal: Reports: Arthritis Neurological: Reports: Neuropathy, Diabetic Endocrine/Metabolic: Reports: Diabetes, type II - Caffeine Use Caffeine Use: Reports: Soda - Living Situation & Occupation Living situation: Reports: (lives with in [place], [place]) Occupation: Disabled ED ROS GENERAL - Review of Systems Review Of Systems: Unable To Obtain (Mental status at this time precludes helpful review of systems from patient.) ED EXAM, GENERAL - Physical Exam Exam: See Below Exam Limited By: Altered Mental Status General Appearance: Lethargic Respiratory/Chest: No Respiratory Distress Cardiovascular: Regular Rate, Rhythm GI/Abdominal: Soft, Non-Tender Neurological: Slow to Respond EKG INTERPRETATION EKG Date: 09/25/18 Time: 13:53 Rhythm: Other (Paced rhythm) Course - Vital Signs Last Recorded V/S: Last Vital Signs Temp 35.6 C 09/25/18 17:33 Pulse 62 09/25/18 17:33 Resp 16 09/25/18 17:33 BP 130/55 L 09/25/18 17:33 Pulse Ox 97 09/25/18 18:04 - Orders/Labs/Meds Orders: Active Orders 24 hr Category Date Time Status EKG 12 Lead [EK] Routine Ther 09/25/18 13:46 Stop Req Medication Orders Acetaminophen (Tylenol) 650 mg PO Q4H PRN PRN Reason: Pain (Mild 1-3)/fever Albuterol/Ipratropium (Duoneb 3.0-0.5 Mg/3 Ml) 3 ml NEB QID PRN PRN Reason: Shortness Of Breath/wheezing Aspirin (Aspirin) 81 mg PO DAILY [facility] Dextrose (Glutose 15) 15 gm PO ONETIME PRN PRN Reason: Hypoglycemia Dextrose/Water (Dextrose 50% In Water) 50 ml IV ONETIME PRN PRN Reason: Hypoglycemia Last Admin: 09/25/18 19:17 Dose: 50 ml Divalproex Sodium (Divalproex Sodium) 250 mg PO BIDMEALS MELODY Gabapentin (Neurontin) 100 mg PO BID [facility] Sodium Chloride (Normal Saline) 1,000 mls @ 125 mls/hr IV ASDIRECTED [facility] Last Admin: 09/25/18 17:51 Dose: 125 mls/hr Insulin Human Lispro (Humalog) 0 unit SUBCUT QIDACANDBED [facility]; Protocol Last Admin: 09/25/18 19:26 Dose: Not Given Latanoprost (Xalatan 0.005% Ophth Soln) 0 ml EYEBOTH DAILY [facility] Losartan Potassium (Cozaar) 25 mg PO QAM [facility] Metoprolol Succinate (Toprol Xl) 25 mg PO QAM [facility] Mirabegron (Myrbetriq) 25 mg PO DAILY [facility] Omeprazole (Omeprazole) 40 mg PO DAILY [facility] Ondansetron HCl (Zofran) 4 mg IV Q4H PRN PRN Reason: Nausea/Vomiting Polyethylene Glycol (Miralax) 17 gm PO DAILY PRN PRN Reason: Constipation Sodium Chloride (Saline Flush) 10 ml FLUSH ASDIRECTED PRN PRN Reason: Keep Vein Open Timolol Maleate (Timoptic 0.5% Ophth Soln) 0 ml EYERT QAM [facility] Warfarin Sodium (Coumadin) 2 mg PO TuSa@1300 [facility] Warfarin Sodium (Coumadin) 4 mg PO SuMoWe@1300 [facility] Warfarin Sodium (Coumadin) 4 mg PO ThFr@1300 [facility] Labs: Laboratory Tests 09/25/18 09/25/18 09/25/18 Range/Units 13:36 13:47 13:47 WBC 6.1 (4.5-11.0) K/uL RBC 3.26 L (4.30-5.90) M/uL Hgb 10.0 L (12.0-15.0) g/dL Hct 33.0 L (40.0-54.0) % MCV 101 H (80-98) fL MCH 31 (27-31) pg MCHC 30 L (32-36) % Plt Count 98 L (150-400) K/uL Neut % (Auto) 76 H (36-66) % Lymph % (Auto) 12 L (24-44) % [place] % (Auto) 8 H (2-6) % Eos % (Auto) 3 (2-4) % Baso % (Auto) 1 (0-1) % PT (9.5-12.0) sec INR (0.80-1.20) Sodium 136 L (140-148) mmol/L POC Potassium (3.5-4.9) mmol/L Potassium 6.7 H* (3.6-5.2) mmol/L Chloride 104 (100-108) mmol/L Carbon Dioxide 24 (21-32) mmol/L Anion Gap 14.7 H (5.0-14.0) mmol/L BUN 54 H D (7-18) mg/dL Creatinine 1.5 H (0.8-1.3) mg/dL Est Cr Clr Drug Dosing 38.00 mL/min Estimated GFR (MDRD) 45 L (>60) Glucose 62 L (74-106) mg/dL Calcium 8.5 (8.5-10.1) mg/dL Total Bilirubin 0.6 D (0.2-1.0) mg/dL AST 27 (15-37) U/L ALT 18 (12-78) U/L Alkaline Phosphatase 100 (46-116) U/L Troponin I 0.058 H* (0.000-0.056) ng/mL C-Reactive Protein 1.96 H (0.0-0.3) mg/dL Total Protein 8.1 (6.4-8.2) g/dL Albumin 3.1 L (3.4-5.0) g/dL Globulin 5.0 H (2.3-3.5) g/dL Albumin/Globulin Ratio 0.6 L (1.2-2.2) Urine Color [place] Urine Appearance Cloudy Urine pH 5.0 (4.5-8.0) Ur Specific Moore 1.020 (1.008-1.030) Urine Protein Trace (NEGATIVE) mg/dL Urine Glucose (UA) Normal (NEGATIVE) mg/dL Urine Ketones Negative (NEGATIVE) mg/dL Urine Occult Blood Negative (NEGATIVE) Urine Nitrite Negative (NEGAITVE) Urine Bilirubin Moderate (NEGATIVE) Urine Urobilinogen 1 (NORMAL) mg/dL Ur Leukocyte Esterase Negative (NEGATIVE) Urine RBC 0-5 (0-5) Urine WBC 0-5 (0-5) Ur Epithelial Cells Few Amorphous Sediment Numerous Urine Bacteria Rare Urine Mucus Few Urine Other See note Urine Opiates Screen (NEGATIVE) Ur Oxycodone Screen (NEGATIVE) Urine Methadone Screen (NEGATIVE) Ur Propoxyphene Screen (NEGATIVE) Ur Barbiturates Screen (NEGATIVE) Ur Tricyclics Screen (NEGATIVE) Ur Phencyclidine Scrn (NEGATIVE) Ur Amphetamine Screen (NEGATIVE) U Methamphetamines Scrn (NEGATIVE) Urine MDMA Screen (NEGATIVE) U Benzodiazepines Scrn (NEGATIVE) U Cocaine Metab Screen (NEGATIVE) U Marijuana (THC) Screen (NEGATIVE) 09/25/18 09/25/18 09/25/18 Range/Units 13:47 14:33 14:44 WBC (4.5-11.0) K/uL RBC (4.30-5.90) M/uL Hgb (12.0-15.0) g/dL Hct (40.0-54.0) % MCV (80-98) fL MCH (27-31) pg MCHC (32-36) % Plt Count (150-400) K/uL Neut % (Auto) (36-66) % Lymph % (Auto) (24-44) % [place] % (Auto) (2-6) % Eos % (Auto) (2-4) % Baso % (Auto) (0-1) % PT 30.1 H (9.5-12.0) sec INR 2.91 H (0.80-1.20) Sodium (140-148) mmol/L POC Potassium 6.5 H* (3.5-4.9) mmol/L Potassium (3.6-5.2) mmol/L Chloride (100-108) mmol/L Carbon Dioxide (21-32) mmol/L Anion Gap (5.0-14.0) mmol/L BUN (7-18) mg/dL Creatinine (0.8-1.3) mg/dL Est Cr Clr Drug Dosing mL/min Estimated GFR (MDRD) (>60) Glucose (74-106) mg/dL Calcium (8.5-10.1) mg/dL Total Bilirubin (0.2-1.0) mg/dL AST (15-37) U/L ALT (12-78) U/L Alkaline Phosphatase (46-116) U/L Troponin I (0.000-0.056) ng/mL C-Reactive Protein (0.0-0.3) mg/dL Total Protein (6.4-8.2) g/dL Albumin (3.4-5.0) g/dL Globulin (2.3-3.5) g/dL Albumin/Globulin Ratio (1.2-2.2) Urine Color Urine Appearance Urine pH (4.5-8.0) Ur Specific Moore (1.008-1.030) Urine Protein (NEGATIVE) mg/dL Urine Glucose (UA) (NEGATIVE) mg/dL Urine Ketones (NEGATIVE) mg/dL Urine Occult Blood (NEGATIVE) Urine Nitrite (NEGAITVE) Urine Bilirubin (NEGATIVE) Urine Urobilinogen (NORMAL) mg/dL Ur Leukocyte Esterase (NEGATIVE) Urine RBC (0-5) Urine WBC (0-5) Ur Epithelial Cells Amorphous Sediment Urine Bacteria Urine Mucus Urine Other Urine Opiates Screen Presumptive positive H (NEGATIVE) Ur Oxycodone Screen Negative (NEGATIVE) Urine Methadone Screen Negative (NEGATIVE) Ur Propoxyphene Screen Negative (NEGATIVE) Ur Barbiturates Screen Negative (NEGATIVE) Ur Tricyclics Screen Negative (NEGATIVE) Ur Phencyclidine Scrn Negative (NEGATIVE) Ur Amphetamine Screen Negative (NEGATIVE) U Methamphetamines Scrn Negative (NEGATIVE) Urine MDMA Screen Negative (NEGATIVE) U Benzodiazepines Scrn Negative (NEGATIVE) U Cocaine Metab Screen Negative (NEGATIVE) U Marijuana (THC) Screen Negative (NEGATIVE) Meds: Medications Generic Name Dose Route Start Last Admin Trade Name Freq PRN Reason Stop Dose Admin Acetaminophen 650 mg 09/25/18 17:31 Tylenol PO Q4H PRN Pain (Mild 1-3)/fever Albuterol/Ipratropium 3 ml 09/25/18 17:31 Duoneb 3.0-0.5 Mg/3 Ml NEB QID PRN Shortness Of Breath/wheezing Aspirin 81 mg 09/26/18 09:00 Aspirin PO DAILY [facility] Dextrose 15 gm 09/25/18 17:31 Glutose 15 PO ONETIME PRN Hypoglycemia Dextrose/Water 50 ml 09/25/18 17:31 09/25/18 19:17 Dextrose 50% In Water IV 50 ml ONETIME PRN Administration Hypoglycemia Divalproex Sodium 250 mg 09/25/18 17:31 Divalproex Sodium PO BIDMEALS [facility] Gabapentin 100 mg 09/25/18 21:00 Neurontin PO BID [facility] Sodium Chloride 1,000 mls @ 125 mls/hr 09/25/18 17:31 09/25/18 17:51 Normal Saline IV 125 mls/hr ASDIRECTED [facility] Administration Insulin Human Lispro 0 unit 09/25/18 17:31 09/25/18 19:26 Humalog SUBCUT Not Given QIDACANDBED [facility] Protocol Latanoprost 0 ml 09/26/18 09:00 Xalatan 0.005% Ophth Soln EYEBOTH DAILY [facility] Losartan Potassium 25 mg 09/26/18 09:00 Cozaar PO QAM [facility] Metoprolol Succinate 25 mg 09/26/18 09:00 Toprol Xl PO QAM [facility] Mirabegron 25 mg 09/26/18 09:00 Myrbetriq PO DAILY [facility] Omeprazole 40 mg 09/26/18 09:00 Omeprazole PO DAILY [facility] Ondansetron HCl 4 mg 09/25/18 17:31 Zofran IV Q4H PRN Nausea/Vomiting Polyethylene Glycol 17 gm 09/25/18 17:31 Miralax PO DAILY PRN Constipation Sodium Chloride 10 ml 09/25/18 17:31 Saline Flush FLUSH ASDIRECTED PRN Keep Vein Open Timolol Maleate 0 ml 09/26/18 09:00 Timoptic 0.5% Ophth Soln EYERT QAM [facility] Warfarin Sodium 2 mg 09/28/18 13:00 Coumadin PO TuSa@1300 [facility] Warfarin Sodium 4 mg 09/26/18 13:00 Coumadin PO SuMoWe@1300 [facility] Warfarin Sodium 4 mg 09/30/18 13:00 Coumadin PO ThFr@1300 [facility] Discontinued Medications Generic Name Dose Route Start Last Admin Trade Name Freq PRN Reason Stop Dose Admin Dextrose/Water 50 ml 09/25/18 15:08 09/25/18 15:27 Dextrose 50% In Water IVPUSH 09/25/18 15:09 50 ml ONETIME ONE Administration Insulin Human Regular 10 unit 09/25/18 15:07 09/25/18 15:30 Humulin R IVPUSH 09/25/18 15:08 10 units ONETIME ONE Administration Sodium Chloride 10 ml 09/25/18 15:07 09/25/18 15:26 Saline Flush FLUSH 10 ml ASDIRECTED PRN Administration Keep Vein Open Sodium Polystyrene Sulfonate 30 gm 09/25/18 15:43 09/25/18 16:25 Kayexalate RECTAL 09/25/18 15:44 30 gm NOW ONE Administration Warfarin Sodium 4 mg 09/25/18 17:31 Coumadin PO ASDIRECTED MELODY - Re-Assessments/Exams Free Text/Narrative Re-Assessment/Exam: 09/25/18 13:44 The patient is briefly arousable and answers questions with a couple of hard to understand words. This may be a cumulative sedation from his new morphine or some other processes. We will reassess as his stay in the department continues. Patient has hyperkalemia with a potassium of 6.5. His troponin is minimally elevated and it is occurring in the context of a mildly elevated creatinine as well. Patient will be given regular insulin 10 units and 1 amp of 50% dextrose. I reviewed his case with Dr. Bishop for admission regarding treatment of hyperkalemia and his level of lethargy. 09/25/18 15:15 09/25/18 19:27 Dr. Bishop came and evaluated the patient and will arrange admission and further care. Departure - Departure Time of Disposition: 15:09 Disposition: Admitted As Inpatient 68 Clinical Impression: Hyperkalemia, Lethargy - Discharge Information *PRESCRIPTION DRUG MONITORING PROGRAM REVIEWED*: Not Applicable *COPY OF PRESCRIPTION DRUG MONITORING REPORT IN PATIENT KAY: Not Applicable - My Orders Last 24 Hours: My Active Orders 09/25/18 13:46 EKG 12 Lead [EK] Routine - Assessment/Plan Last 24 Hours: My Active Orders 09/25/18 13:46 EKG 12 Lead [EK] Routine
--- NOTE | 2018-09-25 14:20 | CRLCR ---
Dyspnea fatigue. Comparison chest x-ray 09/07/2018. FINDINGS: Stable cardiac silhouette. Median sternotomy. Left cardiac pacer. Right mid and lower lobe infiltrates without significant change. Left basilar atelectasis or infiltrate. No effusion. No pneumothorax. IMPRESSION: 1. Stable chest. Dictated by Che Hazel MD @ Sep 25 2018 2:13PM Signed by Dr. Che Hazel @ Sep 25 2018 2:19PM
[2018-09-25] MEDS ORDERED: Insulin Regular, Human 100 Units/ML 3 ML Vial IVPUSH ONE (15:07)
[2018-09-25] MEDS ORDERED: Sodium Chloride 0.9% 10 ML Syringe FLUSH PRN ×2 (15:07→17:31)
[2018-09-25] MEDS ORDERED: 50% Dextrose in Water 50 ML Syringe IVPUSH ONE (15:08)
[2018-09-25] MEDS ORDERED: Sodium Polystyrene Sulfonate 15 GM/60 ML Susp 60 ML Bot RECTAL ONE ×2 (15:43→23:24)
--- NOTE | 2018-09-25 16:55 | PCM.HP ---
H&P History of Present Illness - General Date of Service: 09/25/18 Admit Problem/Dx: Admission Diagnosis/Problem Admission Diagnosis/Problem Hyperkalemia Source of Information: Family, Provider, RN Notes Reviewed. No: Patient History Limitations: Reports: Altered Mental Status - History of Present Illness Initial Comments - Free Text/Narative: Rob is an 82-year-old gentleman who was admitted through the emergency department with lethargy and hypoxia secondary to narcotic medication. He is also found to be dehydrated with hyperkalemia. Because of sedation Rob is unable to provide meaningful history concerning recent symptoms or review of systems. I was able to contact his , apparently was started on long-acting morphine about 3 days ago after he bends the pain clinic. Over the last 24 hours is becoming much more lethargic to the point that they were unable to get him out of bed this morning at his assisted living facility. Oxygen saturations at the assisted living facility were intermittently low and have been intermittently low low here in the emergency department. Oxygenation is overall improved with use of supplemental oxygen via nasal cannula. Lower Back Pain Score (Numeric/FACES): 8 - Related Data Allergies/Adverse Reactions: Allergies Allergy/AdvReac Type Severity Reaction Status Date / Time ticlopidine HCl [From Ticlid] Allergy Hives Verified 09/25/18 13:25 atorvastatin calcium AdvReac Muscle Verified 09/25/18 13:25 [From Lipitor] Aches quinapril HCl [From Accupril] AdvReac Cough Verified 09/25/18 13:25 Home Medications: Home Meds Albuterol Sulfate [Proair Hfa] 2 puff IH TID 03/09/13 [History] Metoprolol Succinate [Toprol XL] 25 mg PO QAM 03/09/13 [History] Nitroglycerin [Nitrostat] 0.4 mg SL ASDIRECTED PRN 03/09/13 [History] Warfarin [Coumadin] 4 mg PO ASDIRECTED 02/04/16 [History] Losartan [Cozaar] 25 mg PO QAM 02/16/18 [History] Timolol Maleate 1 drop EYERT QAM 02/16/18 [History] Ergocalciferol (Vitamin D2) [Vitamin D2] 50,000 units PO DAILY 03/26/18 [History ] Ketoconazole [Nizoral 2% Crm] 1 applic TOP BID PRN 03/26/18 [History] Warfarin [Coumadin] 2 mg PO ASDIRECTED 03/27/18 [History] Divalproex Sodium 250 mg PO BIDMEALS #60 tab.cr 03/28/18 [Rx] Gabapentin [Neurontin] 100 mg PO BID #60 capsule 04/09/18 [Rx] Acetaminophen 325 mg PO BID 07/13/18 [History] Alum Hydrox/Mag Hydrox/Simeth [Maalox Advanced] 10 ml PO Q6H PRN 07/13/18 [ History] Bacitracin [Bacitracin Oint] 1 applic TOP BID PRN 07/13/18 [History] Bisacodyl 1 supp RECTAL BID PRN 07/13/18 [History] Dextran 70/Hypromellose [Artificial Tears] 1 each OP QID PRN 07/13/18 [History] Dextromethorphan/guaiFENesin [Robitussin DM] 10 ml PO Q4H PRN 07/13/18 [History] Loperamide [Imodium] 4 mg PO ASDIRECTED PRN 07/13/18 [History] Magnesium Hydroxide [Milk of Magnesia] 30 ml PO DAILY PRN 07/13/18 [History] Vits A and D/White Pet/Lanolin [A and D Ointment] 1 applic TOP ASDIRECTED PRN [History] Aspirin 81 mg PO DAILY 09/07/18 [History] Cyanocobalamin (Vitamin B-12) [Cyanocobalamin Injection] 1,000 mcg IM ASDIRECTED 09/07/18 [History] Glimepiride 4 mg PO WITHBREAKFAST 09/07/18 [History] Ipratropium/Albuterol Sulfate [Iprat-Albut 0.5-3(2.5) MG/3 ML] 3 ml IH TID 09/07 [History] Latanoprost 1 drop TOP DAILY 09/07/18 [History] Mirabegron [Myrbetriq] 25 mg PO DAILY 09/07/18 [History] Omeprazole 40 mg PO DAILY 09/07/18 [History] Morphine Sulfate [Morphine Sulfate ER] 15 mg PO BID 09/25/18 [History] Past Medical History HEENT History: Reports: Impaired Vision, Other (See Below) Other HEENT History: pt wears reading glasses Cardiovascular History: Reports: Afib, Aneurysm, Bypass, CAD, High Cholesterol, Hypertension, [place], Pacemaker, Stents Other Cardiovascular History: peripheral vascular disease. stenosis of right carotid artery Respiratory History: Reports: Asthma, COPD Other Respiratory History: pulmonary hypertension Gastrointestinal History: Reports: GERD, Hiatal Hernia Genitourinary History: Reports: Renal Disease, Urinary Incontinence Other Genitourinary History: renal artery stenosis Musculoskeletal History: Reports: Back Pain, Chronic, Other (See Below) Other Musculoskeletal History: nerv stimulator implanted in back. Neurological History: Reports: TIA Other Neuro History: vascular dementia Psychiatric History: Reports: Dementia Other Psychiatric History: on set of dementia Endocrine/Metabolic History: Reports: Diabetes, Type II Hematologic History: Reports: None Dermatologic History: Reports: Eczema - Infectious Disease History Infectious Disease History: Reports: Chicken Pox, Measles, Shingles Other Infectious Disease History: unable to obtain at this time - Past Surgical History Head Surgeries/Procedures: Reports: None Cardiovascular Surgical History: Reports: Coronary Artery Bypass, Coronary Artery Stent GI Surgical History: Reports: Cholecystectomy Neurological Surgical History: Reports: Vertebroplasty Musculoskeletal Surgical History: Reports: Shoulder Surgery Social & Family History - Family History Family Medical History: Noncontributory Cardiac: Reports: DE Musculoskeletal: Reports: Arthritis Neurological: Reports: Neuropathy, Diabetic Endocrine/Metabolic: Reports: Diabetes, type II - Tobacco Use Smoking Status *Q: Former Smoker Used Tobacco, but Quit: Yes Month/Year Tobacco Last Used: . - Caffeine Use Caffeine Use: Reports: Soda - Recreational Drug Use Recreational Drug Use: No - Living Situation & Occupation Living situation: Reports: (lives with in [place], [place]) Occupation: Disabled H&P Review of Systems - Review of Systems: Review Of Systems: Unable To Obtain General: Reports: ROS unobtainable (Dementia and sedation) Exam - Exam Exam: See Below - Vital Signs Vital Signs: Last Vital Signs Temp 97.3 F 09/25/18 14:47 Pulse 60 09/25/18 15:44 Resp 20 09/25/18 15:44 BP 118/25 L 09/25/18 15:44 Pulse Ox 87 L 09/25/18 15:44 Weight: 165 lb - Exam Quality Assessment: Supplemental Oxygen, DVT Prophylaxis General: Sedated, Lethargic HEENT: Conjunctiva Clear, Normal Nasal Septum, Posterior Pharynx Clear, Pupils Equal. No: Mucosa Moist & [place]ck: Supple, Trachea Midline, +2 Carotid Pulse wo Bruit Lungs: Normal Respiratory Effort, Rhonchi Cardiovascular: Regular Rate, Normal S1, Normal S2, Irregular Rhythm, Systolic Murmur. No: Diastolic Murmur GI/Abdominal Exam: Soft, Non-Tender, No Organomegaly, No Distention Extremities: Non-Tender, No Pedal Edema Skin: Warm, Dry, Intact - Patient Data Lab Results Last 24 hrs: Laboratory Results - last 24 hr 09/25/18 09/25/18 09/25/18 Range/Units 13:36 13:47 13:47 WBC 6.1 (4.5-11.0) K/uL RBC 3.26 L (4.30-5.90) M/uL Hgb 10.0 L (12.0-15.0) g/dL Hct 33.0 L (40.0-54.0) % MCV 101 H (80-98) fL MCH 31 (27-31) pg MCHC 30 L (32-36) % Plt Count 98 L (150-400) K/uL Neut % (Auto) 76 H (36-66) % Lymph % (Auto) 12 L (24-44) % [place] % (Auto) 8 H (2-6) % Eos % (Auto) 3 (2-4) % Baso % (Auto) 1 (0-1) % PT (9.5-12.0) sec INR (0.80-1.20) Sodium 136 L (140-148) mmol/L POC Potassium (3.5-4.9) mmol/L Potassium 6.7 H* (3.6-5.2) mmol/L Chloride 104 (100-108) mmol/L Carbon Dioxide 24 (21-32) mmol/L Anion Gap 14.7 H (5.0-14.0) mmol/L BUN 54 H D (7-18) mg/dL Creatinine 1.5 H (0.8-1.3) mg/dL Est Cr Clr Drug Dosing 38.00 mL/min Estimated GFR (MDRD) 45 L (>60) Glucose 62 L (74-106) mg/dL Calcium 8.5 (8.5-10.1) mg/dL Total Bilirubin 0.6 D (0.2-1.0) mg/dL AST 27 (15-37) U/L ALT 18 (12-78) U/L Alkaline Phosphatase 100 (46-116) U/L Troponin I 0.058 H* (0.000-0.056) ng/mL C-Reactive Protein 1.96 H (0.0-0.3) mg/dL Total Protein 8.1 (6.4-8.2) g/dL Albumin 3.1 L (3.4-5.0) g/dL Globulin 5.0 H (2.3-3.5) g/dL Albumin/Globulin Ratio 0.6 L (1.2-2.2) Urine Color [place] Urine Appearance Cloudy Urine pH 5.0 (4.5-8.0) Ur Specific [place] 1.020 (1.008-1.030) Urine Protein Trace (NEGATIVE) mg/dL Urine Glucose (UA) Normal (NEGATIVE) mg/dL Urine Ketones Negative (NEGATIVE) mg/dL Urine Occult Blood Negative (NEGATIVE) Urine Nitrite Negative (NEGAITVE) Urine Bilirubin Moderate (NEGATIVE) Urine Urobilinogen 1 (NORMAL) mg/dL Ur Leukocyte Esterase Negative (NEGATIVE) Urine RBC 0-5 (0-5) Urine WBC 0-5 (0-5) Ur Epithelial Cells Few Amorphous Sediment Numerous Urine Bacteria Rare Urine Mucus Few Urine Other See note Urine Opiates Screen (NEGATIVE) Ur Oxycodone Screen (NEGATIVE) Urine Methadone Screen (NEGATIVE) Ur Propoxyphene Screen (NEGATIVE) Ur Barbiturates Screen (NEGATIVE) Ur Tricyclics Screen (NEGATIVE) Ur Phencyclidine Scrn (NEGATIVE) Ur Amphetamine Screen (NEGATIVE) U Methamphetamines Scrn (NEGATIVE) Urine MDMA Screen (NEGATIVE) U Benzodiazepines Scrn (NEGATIVE) U Cocaine Metab Screen (NEGATIVE) U Marijuana (THC) Screen (NEGATIVE) 09/25/18 09/25/18 09/25/18 Range/Units 13:47 14:33 14:44 WBC (4.5-11.0) K/uL RBC (4.30-5.90) M/uL Hgb (12.0-15.0) g/dL Hct (40.0-54.0) % MCV (80-98) fL MCH (27-31) pg MCHC (32-36) % Plt Count (150-400) K/uL Neut % (Auto) (36-66) % Lymph % (Auto) (24-44) % [place] % (Auto) (2-6) % Eos % (Auto) (2-4) % Baso % (Auto) (0-1) % PT 30.1 H (9.5-12.0) sec INR 2.91 H (0.80-1.20) Sodium (140-148) mmol/L POC Potassium 6.5 H* (3.5-4.9) mmol/L Potassium (3.6-5.2) mmol/L Chloride (100-108) mmol/L Carbon Dioxide (21-32) mmol/L Anion Gap (5.0-14.0) mmol/L BUN (7-18) mg/dL Creatinine (0.8-1.3) mg/dL Est Cr Clr Drug Dosing mL/min Estimated GFR (MDRD) (>60) Glucose (74-106) mg/dL Calcium (8.5-10.1) mg/dL Total Bilirubin (0.2-1.0) mg/dL AST (15-37) U/L ALT (12-78) U/L Alkaline Phosphatase (46-116) U/L Troponin I (0.000-0.056) ng/mL C-Reactive Protein (0.0-0.3) mg/dL Total Protein (6.4-8.2) g/dL Albumin (3.4-5.0) g/dL Globulin (2.3-3.5) g/dL Albumin/Globulin Ratio (1.2-2.2) Urine Color Urine Appearance Urine pH (4.5-8.0) Ur Specific [place] (1.008-1.030) Urine Protein (NEGATIVE) mg/dL Urine Glucose (UA) (NEGATIVE) mg/dL Urine Ketones (NEGATIVE) mg/dL Urine Occult Blood (NEGATIVE) Urine Nitrite (NEGAITVE) Urine Bilirubin (NEGATIVE) Urine Urobilinogen (NORMAL) mg/dL Ur Leukocyte Esterase (NEGATIVE) Urine RBC (0-5) Urine WBC (0-5) Ur Epithelial Cells Amorphous [place] Urine Bacteria Urine Mucus Urine Other Urine Opiates Screen Presumptive positive H (NEGATIVE) Ur Oxycodone Screen Negative (NEGATIVE) Urine Methadone Screen Negative (NEGATIVE) Ur Propoxyphene Screen Negative (NEGATIVE) Ur Barbiturates Screen Negative (NEGATIVE) Ur Tricyclics Screen Negative (NEGATIVE) Ur Phencyclidine Scrn Negative (NEGATIVE) Ur Amphetamine Screen Negative (NEGATIVE) U Methamphetamines Scrn Negative (NEGATIVE) Urine MDMA Screen Negative (NEGATIVE) U Benzodiazepines Scrn Negative (NEGATIVE) U Cocaine Metab Screen Negative (NEGATIVE) U Marijuana (THC) Screen Negative (NEGATIVE) Result Diagrams: 09/25/18 13:47 09/25/18 13:47 *Q Meaningful Use (ADM) - VTE *Q VTE Pharmacological Contraindications *Q: High INR Value - VTE Risk Assess *Q Each Risk Factor Represents 1 Point: Congestive heart failure (CHF), Abnormal Pulmonary Function (COPD) Total Score 1 Point Risk Factors: 2 Each Risk Factor Represents 2 Points: None Total Score 2 Point Risk Factors: 0 Each Risk Factor Represents 3 Points: Age 75 Years or Greater Total Score 3 Point Risk Factors: 3 Each Risk Factor Represents 5 Points: None Total Score 5 Point Risk Factors: 0 Venous Thromboembolism Risk Factor Score *Q: 5 Problem List Initiated/Reviewed/Updated: Yes Orders Last 24hrs: Active Orders 24 hr Category Date Time Status Patient Status Manage Transfer [TRANSFER] Routine ADT 09/25/18 16:16 Active EKG Documentation Completion [RC] ASDIRECTED Care 09/25/18 13:46 Active Sodium Chloride 0.9% [Saline Flush] Med 09/25/18 15:07 Active 10 ml FLUSH ASDIRECTED PRN Saline Lock Insert [OM.PC] Routine Oth 09/25/18 15:07 Ordered Resuscitation Status Routine Resus Stat 09/25/18 16:24 Ordered EKG 12 Lead [EK] Routine Ther 09/25/18 13:46 Ordered Medication Orders Sodium Chloride (Saline Flush) 10 ml FLUSH ASDIRECTED PRN PRN Reason: Keep Vein Open Last Admin: 09/25/18 15:26 Dose: 10 ml Assessment/Plan Comment:: ASSESSMENT AND PLAN SEDATION AND LETHARGY-likely secondary to long-acting morphine started 3 days ago. Expect slow improvement over the next 24 hours. -Hold long-acting morphine HYPERKALEMIA-likely secondary to dehydration and decrease in oral liquids over the past few days secondary to sedation. EKG shows no significant changes related to hyperkalemia -IV fluids for hydration -Kayexalate 30 g given rectally in the emergency department -Recheck potassium at 10 PM -Consider second dose of Kayexalate depending on the evening potassium level -Consider use of IV furosemide after hydration -Recheck potassium level in a.m. -Cardiac monitoring HYPOXIA-likely secondary to sedation and underlying chronic lung disease, he does appear to be protecting his airway. -Supplemental oxygen as needed until oversedation has resolved TYPE 2 DIABETES MELLITUS -Hold oral hypoglycemic medication -4 times a day glucometers -Low-dose sliding scale insulin COPD-well compensated with no evidence of exacerbation, likely that his chronic lung disease is contributing to hypoxia CHRONIC KIDNEY DISEASE STAGE IIIa -Closely monitor renal function and urine output MAINTENANCE ISSUES -DVT prophylaxis; current therapy with warfarin should provide adequate DVT prophylaxis -GI prophylaxis; continue outpatient PPI therapy -Davis catheter; not indicated -Nutrition; consistent carb diet -Nicotine dependence; not required CODE STATUS-FULL CODE ADMISSION STATUS-patient will be admitted to inpatient status, expect at least a 2 night hospital stay for evaluation and management of problems as outlined above. At the time of this admission I do not reasonably expected evaluation and management of this problem will require more than a 96 hour hospital stay. DISPOSITION-anticipate discharge back to assisted living facility PRIMARY CARE PROVIDER-Dr. Starr
[2018-09-25] MEDS ORDERED: Albuterol/Ipratropium 3.0-0.5 MG/3 ML Neb Soln NEB PRN (17:31)
[2018-09-25] MEDS ORDERED: Ondansetron 4 MG/2 ML SDV IV PRN (17:31)
[2018-09-25] MEDS ORDERED: Polyethylene Glycol 3350 Powder 17 GM Packet PO PRN (17:31)
[2018-09-25] MEDS ORDERED: Sodium Chloride 0.9% 1,000 ML IV SCH (17:31)
[2018-09-25] MEDS ORDERED: Glucose Gel 15 GM in 37.5 GM Tube PO PRN (17:31)
[2018-09-25] MEDS ORDERED: Acetaminophen 325 MG Tab PO PRN (17:31)
[2018-09-25] MEDS: 50% Dextrose in Water 50 ML Syringe IV PRN ×2 (19:17→21:42)
[2018-09-25] MEDS: Insulin Lispro 100 Unit/ML 3 ML KwikPen SUBCUT SCH ×2 (19:26→19:50)
[2018-09-25] MEDS: Divalproex Sodium Delayed-Release 250 MG Tab.CR PO SCH (19:50)
[2018-09-25] MEDS: Gabapentin 100 MG Cap PO SCH (20:57)
[2018-09-25] MEDS ORDERED: 50% Dextrose in Water 50 ML Syringe ONE (21:28)
[2018-09-25] MEDS: Dextrose 5%-0.45% NaCl 1,000 ML IV SCH (23:30)
[2018-09-26] MEDS: Dextrose 5%-0.45% NaCl 1,000 ML IV SCH (05:33)
[2018-09-26] MEDS ORDERED: Sodium Polystyrene Sulfonate 15 GM/60 ML Susp 60 ML Bot RECTAL ONE (06:13)
[2018-09-26] MEDS: Insulin Lispro 100 Unit/ML 3 ML KwikPen SUBCUT SCH ×4 (07:33→21:47)
[2018-09-26] MEDS ORDERED: Haloperidol Lactate 5 MG/ML SDV IVPUSH ONE (08:39)
[2018-09-26] MEDS ORDERED: Furosemide 40 MG/4 ML VIAL IVPUSH ONE (08:40)
[2018-09-26] MEDS ORDERED: Omeprazole 40 MG Cap.CR PO SCH (09:00)
[2018-09-26] MEDS ORDERED: Latanoprost 0.005% Ophth Soln 2.5 ML Bottle EYEBOTH SCH (09:00)
[2018-09-26] MEDS: Divalproex Sodium Delayed-Release 250 MG Tab.CR PO SCH ×2 (09:00→18:43)
[2018-09-26] MEDS: Pantoprazole 40 MG Tab.CR PO SCH (09:01)
[2018-09-26] MEDS: Metoprolol Succinate 25 MG Tab.ER PO SCH (09:21)
[2018-09-26] MEDS: Gabapentin 100 MG Cap PO SCH ×2 (09:21→21:49)
[2018-09-26] MEDS: Aspirin 81 MG Tab.Chew PO SCH (09:21)
[2018-09-26] MEDS: Mirabegron 25 MG Tab Extended Release PO SCH (09:21)
[2018-09-26] MEDS: Losartan 25 MG Tab PO SCH (09:22)
[2018-09-26] MEDS: Timolol Maleate 0.5% Ophth Soln 5 ML Bottle EYERT SCH (10:12)
[2018-09-26] MEDS ORDERED: Haloperidol Lactate 5 MG/ML SDV IVPUSH PRN ×2 (11:21→13:48)
--- NOTE | 2018-09-26 11:28 | PCM.PN ---
- General Info Date of Service: 09/26/18 Subjective Update: Mr. Villar has been more alert and also agitated and slightly early intervention specialist hours. Obviously sedation secondary to morphine appears to warn off. He remains fairly confused and continues to experience moderate hyperkalemia spite repeated doses of rectal Kayexalate. He is unable to provide meaningful history concerning symptoms or review of systems because of his dementia and current agitation. - Patient Data Vitals - Most Recent: Last Vital Signs Temp 97.4 F 09/26/18 10:36 Pulse 67 09/26/18 10:36 Resp 18 09/26/18 10:36 BP 134/61 09/26/18 10:36 Pulse Ox 95 09/26/18 10:36 Weight - Most Recent: 165 lb I&O - Last 24 Hours: Intake & Output 09/25/18 09/26/18 09/26/18 22:59 06:59 14:59 Intake Total 1300 Balance 1300 Lab Results Last 24 Hours: Laboratory Results - last 24 hr 09/25/18 09/25/18 09/25/18 Range/Units 13:36 13:47 13:47 WBC 6.1 (4.5-11.0) K/uL RBC 3.26 L (4.30-5.90) M/uL Hgb 10.0 L (12.0-15.0) g/dL Hct 33.0 L (40.0-54.0) % MCV 101 H (80-98) fL MCH 31 (27-31) pg MCHC 30 L (32-36) % Plt Count 98 L (150-400) K/uL Neut % (Auto) 76 H (36-66) % Lymph % (Auto) 12 L (24-44) % Morgan % (Auto) 8 H (2-6) % Eos % (Auto) 3 (2-4) % Baso % (Auto) 1 (0-1) % PT (9.5-12.0) sec INR (0.80-1.20) Sodium 136 L (140-148) mmol/L POC Potassium (3.5-4.9) mmol/L Potassium 6.7 H* (3.6-5.2) mmol/L Chloride 104 (100-108) mmol/L Carbon Dioxide 24 (21-32) mmol/L Anion Gap 14.7 H (5.0-14.0) mmol/L BUN 54 H D (7-18) mg/dL Creatinine 1.5 H (0.8-1.3) mg/dL Est Cr Clr Drug Dosing 38.00 mL/min Estimated GFR (MDRD) 45 L (>60) Glucose 62 L (74-106) mg/dL Calcium 8.5 (8.5-10.1) mg/dL Magnesium (1.8-2.4) mg/dL Total Bilirubin 0.6 D (0.2-1.0) mg/dL AST 27 (15-37) U/L ALT 18 (12-78) U/L Alkaline Phosphatase 100 (46-116) U/L Troponin I 0.058 H* (0.000-0.056) ng/mL C-Reactive Protein 1.96 H (0.0-0.3) mg/dL Total Protein 8.1 (6.4-8.2) g/dL Albumin 3.1 L (3.4-5.0) g/dL Globulin 5.0 H (2.3-3.5) g/dL Albumin/Globulin Ratio 0.6 L (1.2-2.2) Urine Color [place] Urine Appearance Cloudy Urine pH 5.0 (4.5-8.0) Ur Specific Burton 1.020 (1.008-1.030) Urine Protein Trace (NEGATIVE) mg/dL Urine Glucose (UA) Normal (NEGATIVE) mg/dL Urine Ketones Negative (NEGATIVE) mg/dL Urine Occult Blood Negative (NEGATIVE) Urine Nitrite Negative (NEGAITVE) Urine Bilirubin Moderate (NEGATIVE) Urine Urobilinogen 1 (NORMAL) mg/dL Ur Leukocyte Esterase Negative (NEGATIVE) Urine RBC 0-5 (0-5) Urine WBC 0-5 (0-5) Ur Epithelial Cells Few Amorphous Sediment Numerous Urine Bacteria Rare Urine Mucus Few Urine Other See note Urine Opiates Screen (NEGATIVE) Ur Oxycodone Screen (NEGATIVE) Urine Methadone Screen (NEGATIVE) Ur Propoxyphene Screen (NEGATIVE) Ur Barbiturates Screen (NEGATIVE) Ur Tricyclics Screen (NEGATIVE) Ur Phencyclidine Scrn (NEGATIVE) Ur Amphetamine Screen (NEGATIVE) U Methamphetamines Scrn (NEGATIVE) Urine MDMA Screen (NEGATIVE) U Benzodiazepines Scrn (NEGATIVE) U Cocaine Metab Screen (NEGATIVE) U Marijuana (THC) Screen (NEGATIVE) 09/25/18 09/25/18 09/25/18 Range/Units 13:47 14:33 14:44 WBC (4.5-11.0) K/uL RBC (4.30-5.90) M/uL Hgb (12.0-15.0) g/dL Hct (40.0-54.0) % MCV (80-98) fL MCH (27-31) pg MCHC (32-36) % Plt Count (150-400) K/uL Neut % (Auto) (36-66) % Lymph % (Auto) (24-44) % Morgan % (Auto) (2-6) % Eos % (Auto) (2-4) % Baso % (Auto) (0-1) % PT 30.1 H (9.5-12.0) sec INR 2.91 H (0.80-1.20) Sodium (140-148) mmol/L POC Potassium 6.5 H* (3.5-4.9) mmol/L Potassium (3.6-5.2) mmol/L Chloride (100-108) mmol/L Carbon Dioxide (21-32) mmol/L Anion Gap (5.0-14.0) mmol/L BUN (7-18) mg/dL Creatinine (0.8-1.3) mg/dL Est Cr Clr Drug Dosing mL/min Estimated GFR (MDRD) (>60) Glucose (74-106) mg/dL Calcium (8.5-10.1) mg/dL Magnesium (1.8-2.4) mg/dL Total Bilirubin (0.2-1.0) mg/dL AST (15-37) U/L ALT (12-78) U/L Alkaline Phosphatase (46-116) U/L Troponin I (0.000-0.056) ng/mL C-Reactive Protein (0.0-0.3) mg/dL Total Protein (6.4-8.2) g/dL Albumin (3.4-5.0) g/dL Globulin (2.3-3.5) g/dL Albumin/Globulin Ratio (1.2-2.2) Urine Color Urine Appearance Urine pH (4.5-8.0) Ur Specific Burton (1.008-1.030) Urine Protein (NEGATIVE) mg/dL Urine Glucose (UA) (NEGATIVE) mg/dL Urine Ketones (NEGATIVE) mg/dL Urine Occult Blood (NEGATIVE) Urine Nitrite (NEGAITVE) Urine Bilirubin (NEGATIVE) Urine Urobilinogen (NORMAL) mg/dL Ur Leukocyte Esterase (NEGATIVE) Urine RBC (0-5) Urine WBC (0-5) Ur Epithelial Cells Amorphous Sediment Urine Bacteria Urine Mucus Urine Other Urine Opiates Screen Presumptive positive H (NEGATIVE) Ur Oxycodone Screen Negative (NEGATIVE) Urine Methadone Screen Negative (NEGATIVE) Ur Propoxyphene Screen Negative (NEGATIVE) Ur Barbiturates Screen Negative (NEGATIVE) Ur Tricyclics Screen Negative (NEGATIVE) Ur Phencyclidine Scrn Negative (NEGATIVE) Ur Amphetamine Screen Negative (NEGATIVE) U Methamphetamines Scrn Negative (NEGATIVE) Urine MDMA Screen Negative (NEGATIVE) U Benzodiazepines Scrn Negative (NEGATIVE) U Cocaine Metab Screen Negative (NEGATIVE) U Marijuana (THC) Screen Negative (NEGATIVE) 09/25/18 09/25/18 09/26/18 Range/Units 21:59 22:00 04:37 WBC 5.4 (4.5-11.0) K/uL RBC 3.12 L (4.30-5.90) M/uL Hgb 9.5 L (12.0-15.0) g/dL Hct 32.1 L (40.0-54.0) % MCV 103 H (80-98) fL MCH 30 (27-31) pg MCHC 30 L (32-36) % Plt Count 81 L (150-400) K/uL Neut % (Auto) 73 H (36-66) % Lymph % (Auto) 13 L (24-44) % Morgan % (Auto) 12 H (2-6) % Eos % (Auto) 2 (2-4) % Baso % (Auto) 0 (0-1) % PT (9.5-12.0) sec INR (0.80-1.20) Sodium (140-148) mmol/L POC Potassium (3.5-4.9) mmol/L Potassium 6.3 H* (3.6-5.2) mmol/L Chloride (100-108) mmol/L Carbon Dioxide (21-32) mmol/L Anion Gap (5.0-14.0) mmol/L BUN (7-18) mg/dL Creatinine (0.8-1.3) mg/dL Est Cr Clr Drug Dosing mL/min Estimated GFR (MDRD) (>60) Glucose 128 H (74-106) mg/dL Calcium (8.5-10.1) mg/dL Magnesium (1.8-2.4) mg/dL Total Bilirubin (0.2-1.0) mg/dL AST (15-37) U/L ALT (12-78) U/L Alkaline Phosphatase (46-116) U/L Troponin I (0.000-0.056) ng/mL C-Reactive Protein (0.0-0.3) mg/dL Total Protein (6.4-8.2) g/dL Albumin (3.4-5.0) g/dL Globulin (2.3-3.5) g/dL Albumin/Globulin Ratio (1.2-2.2) Urine Color Urine Appearance Urine pH (4.5-8.0) Ur Specific Burton (1.008-1.030) Urine Protein (NEGATIVE) mg/dL Urine Glucose (UA) (NEGATIVE) mg/dL Urine Ketones (NEGATIVE) mg/dL Urine Occult Blood (NEGATIVE) Urine Nitrite (NEGAITVE) Urine Bilirubin (NEGATIVE) Urine Urobilinogen (NORMAL) mg/dL Ur Leukocyte Esterase (NEGATIVE) Urine RBC (0-5) Urine WBC (0-5) Ur Epithelial Cells Amorphous Sediment Urine Bacteria Urine Mucus Urine Other Urine Opiates Screen (NEGATIVE) Ur Oxycodone Screen (NEGATIVE) Urine Methadone Screen (NEGATIVE) Ur Propoxyphene Screen (NEGATIVE) Ur Barbiturates Screen (NEGATIVE) Ur Tricyclics Screen (NEGATIVE) Ur Phencyclidine Scrn (NEGATIVE) Ur Amphetamine Screen (NEGATIVE) U Methamphetamines Scrn (NEGATIVE) Urine MDMA Screen (NEGATIVE) U Benzodiazepines Scrn (NEGATIVE) U Cocaine Metab Screen (NEGATIVE) U Marijuana (THC) Screen (NEGATIVE) 09/26/18 09/26/18 Range/Units 04:37 04:37 WBC (4.5-11.0) K/uL RBC (4.30-5.90) M/uL Hgb (12.0-15.0) g/dL Hct (40.0-54.0) % MCV (80-98) fL MCH (27-31) pg MCHC (32-36) % Plt Count (150-400) K/uL Neut % (Auto) (36-66) % Lymph % (Auto) (24-44) % Morgan % (Auto) (2-6) % Eos % (Auto) (2-4) % Baso % (Auto) (0-1) % PT 33.2 H (9.5-12.0) sec INR 3.23 H (0.80-1.20) Sodium 136 L (140-148) mmol/L POC Potassium (3.5-4.9) mmol/L Potassium 6.1 H* (3.6-5.2) mmol/L Chloride 103 (100-108) mmol/L Carbon Dioxide 25 (21-32) mmol/L Anion Gap 14.1 H (5.0-14.0) mmol/L BUN 60 H (7-18) mg/dL Creatinine 1.6 H (0.8-1.3) mg/dL Est Cr Clr Drug Dosing 35.63 mL/min Estimated GFR (MDRD) 42 L (>60) Glucose 105 (74-106) mg/dL Calcium 8.6 (8.5-10.1) mg/dL Magnesium 1.9 D (1.8-2.4) mg/dL Total Bilirubin (0.2-1.0) mg/dL AST (15-37) U/L ALT (12-78) U/L Alkaline Phosphatase (46-116) U/L Troponin I (0.000-0.056) ng/mL C-Reactive Protein (0.0-0.3) mg/dL Total Protein (6.4-8.2) g/dL Albumin (3.4-5.0) g/dL Globulin (2.3-3.5) g/dL Albumin/Globulin Ratio (1.2-2.2) Urine Color Urine Appearance Urine pH (4.5-8.0) Ur Specific Burton (1.008-1.030) Urine Protein (NEGATIVE) mg/dL Urine Glucose (UA) (NEGATIVE) mg/dL Urine Ketones (NEGATIVE) mg/dL Urine Occult Blood (NEGATIVE) Urine Nitrite (NEGAITVE) Urine Bilirubin (NEGATIVE) Urine Urobilinogen (NORMAL) mg/dL Ur Leukocyte Esterase (NEGATIVE) Urine RBC (0-5) Urine WBC (0-5) Ur Epithelial Cells Amorphous Sediment Urine Bacteria Urine Mucus Urine Other Urine Opiates Screen (NEGATIVE) Ur Oxycodone Screen (NEGATIVE) Urine Methadone Screen (NEGATIVE) Ur Propoxyphene Screen (NEGATIVE) Ur Barbiturates Screen (NEGATIVE) Ur Tricyclics Screen (NEGATIVE) Ur Phencyclidine Scrn (NEGATIVE) Ur Amphetamine Screen (NEGATIVE) U Methamphetamines Scrn (NEGATIVE) Urine MDMA Screen (NEGATIVE) U Benzodiazepines Scrn (NEGATIVE) U Cocaine Metab Screen (NEGATIVE) U Marijuana (THC) Screen (NEGATIVE) Med Orders - Current: Current Medications Acetaminophen (Tylenol) 650 mg PO Q4H PRN PRN Reason: Pain (Mild 1-3)/fever Albuterol/Ipratropium (Duoneb 3.0-0.5 Mg/3 Ml) 3 ml NEB QID PRN PRN Reason: Shortness Of Breath/wheezing Aspirin (Aspirin) 81 mg PO DAILY [facility] Last Admin: 09/26/18 09:21 Dose: 81 mg Dextrose (Glutose 15) 15 gm PO ONETIME PRN PRN Reason: Hypoglycemia Dextrose/Water (Dextrose 50% In Water) 50 ml IV ONETIME PRN PRN Reason: Hypoglycemia Last Admin: 09/25/18 21:42 Dose: 50 ml Divalproex Sodium (Divalproex Sodium) 250 mg PO BIDMEALS [facility] Last Admin: 09/26/18 09:00 Dose: 250 mg Gabapentin (Neurontin) 100 mg PO BID [facility] Last Admin: 09/26/18 09:21 Dose: 100 mg Haloperidol Lactate (Haldol) 2 mg IVPUSH Q2H PRN PRN Reason: Agitation Insulin Human Lispro (Humalog) 0 unit SUBCUT QIDACANDBED [facility]; Protocol Last Admin: 09/26/18 07:33 Dose: Not Given Latanoprost (Xalatan 0.005% Ophth Soln) 0 ml EYERT BEDTIME [facility] Losartan Potassium (Cozaar) 25 mg PO QAM [facility] Last Admin: 09/26/18 09:22 Dose: 25 mg Metoprolol Succinate (Toprol Xl) 25 mg PO QAM [facility] Last Admin: 09/26/18 09:21 Dose: 25 mg Mirabegron (Myrbetriq) 25 mg PO DAILY [facility] Last Admin: 09/26/18 09:21 Dose: 25 mg Ondansetron HCl (Zofran) 4 mg IV Q4H PRN PRN Reason: Nausea/Vomiting Pantoprazole Sodium (Protonix) 40 mg PO ACBREAKFAST [facility] Last Admin: 09/26/18 09:01 Dose: 40 mg Polyethylene Glycol (Miralax) 17 gm PO DAILY PRN PRN Reason: Constipation Sodium Chloride (Saline Flush) 10 ml FLUSH ASDIRECTED PRN PRN Reason: Keep Vein Open Timolol Maleate (Timoptic 0.5% Ophth Soln) 0 [facility] [place] Last Admin: 09/26/18 10:12 Dose: 1 drop Warfarin Sodium (Coumadin) 2 mg PO ONETIME ONE Stop: 09/26/18 13:01 Discontinued Medications Dextrose/Water (Dextrose 50% In Water) 50 ml IVPUSH ONETIME ONE Stop: 09/25/18 15:09 Last Admin: 09/25/18 15:27 Dose: 50 ml Dextrose/Water (Dextrose 50% In Water) Confirm Administered Dose 50 ml .ROUTE .STK-MED ONE Stop: 09/25/18 21:29 Last Admin: 09/25/18 22:18 Dose: Not Given Furosemide (Lasix) 40 mg IVPUSH NOW ONE Stop: 09/26/18 08:41 Last Admin: 09/26/18 08:52 Dose: 40 mg Haloperidol Lactate (Haldol) 2 mg IVPUSH ONETIME ONE Stop: 09/26/18 08:40 Last Admin: 09/26/18 08:48 Dose: 2 mg Sodium Chloride (Normal Saline) 1,000 mls @ 125 mls/hr IV ASDIRECTED [facility] Last Admin: 09/25/18 17:51 Dose: 125 mls/hr Dextrose/Sodium Chloride (Dextrose 5%-1/2 Ns) 1,000 mls @ 125 mls/hr IV ASDIRECTED [facility] Last Admin: 09/26/18 05:33 Dose: 125 mls/hr Insulin Human Regular (Humulin R) 10 unit IVPUSH ONETIME ONE Stop: 09/25/18 15:08 Last Admin: 09/25/18 15:30 Dose: 10 units Sodium Chloride (Saline Flush) 10 ml FLUSH ASDIRECTED PRN PRN Reason: Keep Vein Open Last Admin: 09/25/18 15:26 Dose: 10 ml Sodium Polystyrene Sulfonate (Kayexalate) 30 gm RECTAL NOW ONE Stop: 09/25/18 15:44 Last Admin: 09/25/18 16:25 Dose: 30 gm Sodium Polystyrene Sulfonate (Kayexalate) 30 gm RECTAL NOW ONE Stop: 09/25/18 23:25 Last Admin: 09/26/18 00:07 Dose: 30 gm Sodium Polystyrene Sulfonate (Kayexalate) 30 gm RECTAL NOW ONE Stop: 09/26/18 06:14 Last Admin: 09/26/18 07:16 Dose: 30 gm Warfarin Sodium (Coumadin) 4 mg PO ASDIRECTED [facility] Warfarin Sodium (Coumadin) 2 mg PO TuSa@1300 MELODY Warfarin Sodium (Coumadin) 4 mg PO SuMoWe@1300 MELODY Warfarin Sodium (Coumadin) 4 mg PO ThFr@1300 MELODY - Exam Quality Assessment: DVT Prophylaxis General: Alert, Moderate Distress. No: Oriented, Cooperative Lungs: Clear to Auscultation, Normal Respiratory Effort. No: Decreased Breath Sounds Cardiovascular: Regular Rate, Regular Rhythm, No Murmurs GI/Abdominal Exam: Soft, Non-Tender, No Organomegaly, No Distention Extremities: Non-Tender, No Pedal Edema Skin: Warm, Dry - Problem List Review Problem List Initiated/Reviewed/Updated: Yes - My Orders Last 24 Hours: My Active Orders 09/25/18 16:24 Resuscitation Status Routine 09/25/18 17:31 Patient Status [ADT] Routine Ambulate [RC] QID Blood Glucose Check, Bedside [RC] QIDACANDBED Cardiac Monitoring [RC] .As Directed Diabetes Education [RC] Click to Edit Height and Weight [RC] 0500 Intake and Output [RC] .PRN Notify Provider Vital Signs [RC] ASDIRECTED Notify Provider [RC] PRN Oxygen Therapy [RC] PRN Peripheral IV Care [RC] Q12H Pulse Oximetry [RC] CONTINUOUS RT Aerosol Therapy [RC] ASDIRECTED Up With Assistance [RC] ASDIRECTED Up to Chair [RC] QID VTE/DVT Education [RC] Per Unit Routine Vital Signs [RC] Q4H Acetaminophen [Tylenol] 650 mg PO Q4H PRN Albuterol/Ipratropium [DuoNeb 3.0-0.5 MG/3 ML] 3 ml NEB QID PRN Dextrose 50% in Water 50 ml IV ONETIME PRN Dextrose [Glutose 15] 15 gm PO ONETIME PRN Divalproex Sodium 250 mg PO BIDMEALS Insulin Lispro [HumaLOG] See Protocol SUBCUT QIDACANDBED Ondansetron [Zofran] 4 mg IV Q4H PRN Polyethylene Glycol 3350 [MiraLAX] 17 gm PO DAILY PRN Sodium Chloride 0.9% [Saline Flush] 10 ml FLUSH ASDIRECTED PRN Peripheral IV Insertion Adult [OM.PC] Routine VTE Pharmacological Contraindications [AST] Per Unit Routine 09/25/18 21:00 Gabapentin [Neurontin] 100 mg PO BID 09/25/18 Lunch Consistent Carbohydrate Diet [DIET] 09/26/18 08:30 Pantoprazole [ProTONIX] 40 mg PO ACBREAKFAST 09/26/18 09:00 Aspirin 81 mg PO DAILY Losartan [Cozaar] 25 mg PO QAM Metoprolol Succinate [Toprol XL] 25 mg PO QAM Mirabegron [Myrbetriq] 25 mg PO DAILY Timolol Maleate [Timoptic 0.5% Ophth Soln] 0 ml EYERT QAM 09/26/18 11:21 Haloperidol Lactate [Haldol] 2 mg IVPUSH Q2H PRN 09/26/18 11:24 Convert IV to Saline Lock [OM.PC] Routine 09/26/18 11:30 GLUCOSE POC LAB TO COLLECT [POC] QIDACANDBED 09/26/18 13:00 POTASSIUM,K [CHEM] Stat Warfarin [Coumadin] 2 mg PO ONETIME ONE 09/26/18 16:30 GLUCOSE POC LAB TO COLLECT [POC] QIDACANDBED 09/26/18 21:00 GLUCOSE POC LAB TO COLLECT [POC] QIDACANDBED Latanoprost [Xalatan 0.005% Ophth Soln] 0 ml EYERT BEDTIME 09/27/18 05:00 BASIC METABOLIC PANEL,BMP [CHEM] Timed 09/27/18 05:11 INR,PT,PROTHROMBIN TIME [COAG] AM 09/27/18 07:30 GLUCOSE POC LAB TO COLLECT [POC] QIDACANDBED 09/27/18 11:30 GLUCOSE POC LAB TO COLLECT [POC] QIDACANDBED 09/27/18 16:30 GLUCOSE POC LAB TO COLLECT [POC] QIDACANDBED 09/27/18 21:00 GLUCOSE POC LAB TO COLLECT [POC] QIDACANDBED 09/28/18 07:30 GLUCOSE POC LAB TO COLLECT [POC] QIDACANDBED 09/28/18 11:30 GLUCOSE POC LAB TO COLLECT [POC] QIDACANDBED 09/28/18 16:30 GLUCOSE POC LAB TO COLLECT [POC] QIDACANDBED 09/28/18 21:00 GLUCOSE POC LAB TO COLLECT [POC] QIDACANDBED 09/29/18 07:30 GLUCOSE POC LAB TO COLLECT [POC] QIDACANDBED 09/29/18 11:30 GLUCOSE POC LAB TO COLLECT [POC] QIDACANDBED 09/29/18 16:30 GLUCOSE POC LAB TO COLLECT [POC] QIDACANDBED 09/29/18 21:00 GLUCOSE POC LAB TO COLLECT [POC] QIDACANDBED 09/30/18 07:30 GLUCOSE POC LAB TO COLLECT [POC] QIDACANDBED 09/30/18 11:30 GLUCOSE POC LAB TO COLLECT [POC] QIDACANDBED 09/30/18 16:30 GLUCOSE POC LAB TO COLLECT [POC] QIDACANDBED - Plan Plan:: ASSESSMENT AND PLAN SEDATION AND LETHARGY-appears to have resolved -Hold long-acting morphine HYPERKALEMIA-likely secondary to dehydration and decrease in oral liquids over the past few days secondary to sedation. EKG shows no significant changes related to hyperkalemia -Saline lock IV -Recheck potassium at 1 PM -Consider repeat dose of Kayexalate depending on the this afternoon potassium level -IV furosemide given this morning -Recheck potassium level in a.m. -Cardiac monitoring HYPOXIA-resolved -Supplemental oxygen as needed until oversedation has resolved TYPE 2 DIABETES MELLITUS-he did experience hypoglycemia last night, this is now resolved -Hold oral hypoglycemic medication -4 times a day glucometers -Low-dose sliding scale insulin COPD-well compensated with no evidence of exacerbation, likely that his chronic lung disease is contributing to hypoxia CHRONIC KIDNEY DISEASE STAGE IIIa -Closely monitor renal function and urine output MAINTENANCE ISSUES -DVT prophylaxis; current therapy with warfarin should provide adequate DVT prophylaxis -GI prophylaxis; continue outpatient PPI therapy -Davis catheter; not indicated -Nutrition; consistent carb diet -Nicotine dependence; not required CODE STATUS-FULL CODE ADMISSION STATUS-patient will be admitted to inpatient status, expect at least a 2 night hospital stay for evaluation and management of problems as outlined above. At the time of this admission I do not reasonably expected evaluation and management of this problem will require more than a 96 hour hospital stay. DISPOSITION-anticipate discharge back to assisted living facility PRIMARY CARE PROVIDER-Dr. Starr
[2018-09-26] MEDS ORDERED: Sodium Chloride 0.9% 1,000 ML IV SCH (14:00)
[2018-09-26] MEDS ORDERED: Lidocaine 2% Jelly 10 ML Urojet MUCMEM ONE (15:05)
[2018-09-26] MEDS ORDERED: HYDROmorphone 0.5 MG/0.5 ML Syringe IVPUSH ONE (18:44)
--- NOTE | 2018-09-26 18:52 | CRLCR ---
TECHNIQUE: AP chest. INDICATION: Increasing shortness of breath. COMPARISON: 09/25/2018 chest x-ray. FINDINGS: Better inspiration than on the prior exam. No appreciable change in the right greater than left lower lobe opacities since the prior exam. No new consolidation. Sternotomy. Pacemaker. Thoracic spinal stimulator leads. Right shoulder arthroplasty. Dictated by Arben Arreguin MD @ 09/26/2018 6:50:57 PM Dictated by: Arben Arreguin MD @ 09/26/2018 18:51:02 (Electronically Signed)
[2018-09-26] MEDS ORDERED: Latanoprost 0.005% Ophth Soln 2.5 ML Bottle EYERT SCH (21:00)
[2018-09-27] MEDS ORDERED: Lidocaine 2% Jelly 10 ML Urojet MUCMEM ONE (05:12)
[2018-09-27] MEDS: Pantoprazole 40 MG Tab.CR PO SCH (07:35)
[2018-09-27] MEDS: Divalproex Sodium Delayed-Release 250 MG Tab.CR PO SCH (07:35)
[2018-09-27] MEDS: Morphine 10 MG/0.5 ML Oral Syringe PO PRN ×2 (07:39→09:28)
[2018-09-27 08:07] VITALS: BP 128/47
[2018-09-27] MEDS: LORazepam ORAL Concentrate 1MG/0.5ML U/D PO PRN ×2 (08:23→10:25)
[2018-09-27] MEDS: Losartan 25 MG Tab PO SCH (09:28)
[2018-09-27] MEDS: Aspirin 81 MG Tab.Chew PO SCH (09:28)
[2018-09-27] MEDS: Timolol Maleate 0.5% Ophth Soln 5 ML Bottle EYERT SCH (09:29)
[2018-09-27] MEDS: Mirabegron 25 MG Tab Extended Release PO SCH (09:29)
[2018-09-27] MEDS: Metoprolol Succinate 25 MG Tab.ER PO SCH (09:29)
[2018-09-27] MEDS: Gabapentin 100 MG Cap PO SCH (09:29)
--- NOTE | 2018-09-27 11:16 | PCM.DCSUM1 ---
Discharge Summary - Hospital Course Brief History: 82-year-old male with history of COPD, congestive heart failure, chronic pain and stage III chronic kidney disease who presented with shortness of breath and lethargy. He was admitted for management of suspected oversedation with recent start of long-acting narcotic. Diagnosis: Stroke: No - Discharge Data Discharge Date: 09/27/18 Discharge Disposition: 20 Preliminary Cause of *Q: Respiratory Failure (COPD) Condition: - Discharge Diagnosis/Problem(s) (1) COPD (chronic obstructive pulmonary disease) SNOMED Code(s): 01890091 ICD Code: J44.9 - CHRONIC OBSTRUCTIVE PULMONARY DISEASE, UNSPECIFIED Status : Chronic Priority: Medium Current Visit: No Qualifiers: COPD type: unspecified COPD Qualified Code(s): J44.9 - Chronic obstructive pulmonary disease, unspecified (2) Hyperkalemia SNOMED Code(s): 42298747 ICD Code: E87.5 - HYPERKALEMIA Status: Acute Current Visit: Yes (3) Chronic kidney disease stage 3 SNOMED Code(s): 288081529 ICD Code: N18.3 - CHRONIC KIDNEY DISEASE, STAGE 3 (MODERATE) Status: Chronic Current Visit: No (4) Ischemic cardiomyopathy SNOMED Code(s): 359695108 ICD Code: I25.5 - ISCHEMIC CARDIOMYOPATHY Status: Chronic Current Visit: No - Patient Summary/Data Hospital Course: Surya presented to the emergency room with hypoxia and lethargy from his assisted living. Workup in the emergency room did not find any evidence for infection. There was suspicion that he had mild dehydration with poor intake over the past couple of days. His creatinine was slightly higher than usual and he had moderate hyperkalemia. Troponin was very mildly elevated at 0.058. He was admitted to the hospital and his sedating narcotics were held. He received Kayexalate to help with his hyperkalemia. Overnight following admission there were no acute issues. He was slightly more alert the next morning but was agitated. His potassium level had been trending down but had not normalized at that time. He had persistent hypoxia. A chest x-ray was repeated and it appeared very similar to the night before as well as previous x-rays with no evidence for pneumonia or congestive heart failure. Blood gases and repeat potassium were obtained later in the day and this showed an acidosis with mild CO2 retention. Potassium level remained elevated. Patient had persistent agitation throughout the day and then more somnolent later in the day. The situation was discussed with his Nusrat who felt that aggressive cares would be beyond his wishes given his significant decrease in his quality of life and multiple medical problems. He was transitioned to comfort care at that time. He received morphine for discomfort and air hunger as well as lorazepam for agitation. He remained a peaceful overnight and past quietly on the morning of September 27. No attempts at resuscitation were made per discussion with his Nusrat after his transition to comfort care the night before. - Discharge Plan *PRESCRIPTION DRUG MONITORING PROGRAM REVIEWED*: Not Applicable *COPY OF PRESCRIPTION DRUG MONITORING REPORT IN PATIENT KAY: Not Applicable Home Medications: Home Meds Albuterol Sulfate [Proair Hfa] 2 puff IH TID 03/09/13 [History] Metoprolol Succinate [Toprol XL] 25 mg PO QAM 03/09/13 [History] Nitroglycerin [Nitrostat] 0.4 mg SL ASDIRECTED PRN 03/09/13 [History] Warfarin [Coumadin] 4 mg PO ASDIRECTED 02/04/16 [History] Losartan [Cozaar] 25 mg PO QAM 02/16/18 [History] Timolol Maleate 1 drop EYERT QAM 02/16/18 [History] Ergocalciferol (Vitamin D2) [Vitamin D2] 50,000 units PO DAILY 03/26/18 [History ] Ketoconazole [Nizoral 2% Crm] 1 applic TOP BID PRN 03/26/18 [History] Warfarin [Coumadin] 2 mg PO ASDIRECTED 03/27/18 [History] Divalproex Sodium 250 mg PO BIDMEALS #60 tab.cr 03/28/18 [Rx] Gabapentin [Neurontin] 100 mg PO BID #60 capsule 04/09/18 [Rx] Acetaminophen 325 mg PO BID 07/13/18 [History] Alum Hydrox/Mag Hydrox/Simeth [Maalox Advanced] 10 ml PO Q6H PRN 07/13/18 [ History] Bacitracin [Bacitracin Oint] 1 applic TOP BID PRN 07/13/18 [History] Bisacodyl 1 supp RECTAL BID PRN 07/13/18 [History] Dextran 70/Hypromellose [Artificial Tears] 1 each OP QID PRN 07/13/18 [History] Dextromethorphan/guaiFENesin [Robitussin DM] 10 ml PO Q4H PRN 07/13/18 [History] Loperamide [Imodium] 4 mg PO ASDIRECTED PRN 07/13/18 [History] Magnesium Hydroxide [Milk of Magnesia] 30 ml PO DAILY PRN 07/13/18 [History] Vits A and D/White Pet/Lanolin [A and D Ointment] 1 applic TOP ASDIRECTED PRN [History] Aspirin 81 mg PO DAILY 09/07/18 [History] Cyanocobalamin (Vitamin B-12) [Cyanocobalamin Injection] 1,000 mcg IM ASDIRECTED 09/07/18 [History] Glimepiride 4 mg PO WITHBREAKFAST 09/07/18 [History] Ipratropium/Albuterol Sulfate [Iprat-Albut 0.5-3(2.5) MG/3 ML] 3 ml IH TID 09/07 [History] Latanoprost 1 drop EYERT BEDTIME 09/07/18 [History] Mirabegron [Myrbetriq] 25 mg PO DAILY 09/07/18 [History] Omeprazole 40 mg PO DAILY 09/07/18 [History] Morphine Sulfate [Morphine Sulfate ER] 15 mg PO BID 09/25/18 [History] - Discharge Summary/Plan Comment DC Time >30 min.: No - Patient Data Vitals - Most Recent: Last Vital Signs Temp 36.9 C 09/27/18 08:01 Pulse 72 09/27/18 08:01 Resp 32 H 09/27/18 08:01 BP 128/47 L 09/27/18 08:01 Pulse Ox 86 L 09/27/18 08:01 Weight - Most Recent: 74.843 kg I&O - Last 24 hours: Intake & Output 09/26/18 09/27/18 09/27/18 22:59 06:59 14:59 Intake Total 1112 Output Total 975 350 Balance 137 -350 Lab Results - Last 24 hrs: Laboratory Results - last 24 hr 09/26/18 09/26/18 09/26/18 Range/Units 12:55 18:42 18:42 WBC 6.9 (4.5-11.0) K/uL RBC 3.19 L (4.30-5.90) M/uL Hgb 9.9 L (12.0-15.0) g/dL Hct 32.6 L (40.0-54.0) % MCV 102 H (80-98) fL MCH 31 (27-31) pg MCHC 30 L (32-36) % Plt Count 119 L (150-400) K/uL Neut % (Auto) 84 H (36-66) % Lymph % (Auto) 6 L (24-44) % Pitt % (Auto) 8 H (2-6) % Eos % (Auto) 1 L (2-4) % Baso % (Auto) 0 (0-1) % Puncture Site Lt brachial ABG pH 7.289 L (7.350-7.450) ABG pCO2 46.0 H (35.0-42.0) mmHg ABG pO2 76.7 (75.0-100.0) mmHg ABG HCO3 21.3 L (22.0-26.0) mmol/L ABG Total CO2 20.3 L (23.0-27.0) mmol/L ABG O2 Saturation 94.1 L (95.0-98.0) % ABG O2 Content 12.9 L (15.0-23.0) %vol ABG Base Excess -4.6 mm/L ABG Hemoglobin 10.0 L (13.5-18.0) g/dL ABG Oxyhemoglobin 90.6 % ABG Carboxyhemoglobin 2.9 H (0.0-1.6) % ABG Methemoglobin 0.8 % Beltran Test Passed O2 Delivery Device Nasal cannula Potassium 5.3 H (3.6-5.2) mmol/L Lactic Acid (0.4-2.0) mmol/L 09/26/18 09/26/18 Range/Units 18:43 19:00 WBC (4.5-11.0) K/uL RBC (4.30-5.90) M/uL Hgb (12.0-15.0) g/dL Hct (40.0-54.0) % MCV (80-98) fL MCH (27-31) pg MCHC (32-36) % Plt Count (150-400) K/uL Neut % (Auto) (36-66) % Lymph % (Auto) (24-44) % Pitt % (Auto) (2-6) % Eos % (Auto) (2-4) % Baso % (Auto) (0-1) % Puncture Site ABG pH (7.350-7.450) ABG pCO2 (35.0-42.0) mmHg ABG pO2 (75.0-100.0) mmHg ABG HCO3 (22.0-26.0) mmol/L ABG Total CO2 (23.0-27.0) mmol/L ABG O2 Saturation (95.0-98.0) % ABG O2 Content (15.0-23.0) %vol ABG Base Excess mm/L ABG Hemoglobin (13.5-18.0) g/dL ABG Oxyhemoglobin % ABG Carboxyhemoglobin (0.0-1.6) % ABG Methemoglobin % Beltran Test O2 Delivery Device Potassium 5.9 H (3.6-5.2) mmol/L Lactic Acid 1.3 (0.4-2.0) mmol/L Med Orders - Current: Current Medications Acetaminophen (Tylenol) 650 mg PO Q4H PRN PRN Reason: Pain (Mild 1-3)/fever Albuterol/Ipratropium (Duoneb 3.0-0.5 Mg/3 Ml) 3 ml NEB QID PRN PRN Reason: Shortness Of Breath/wheezing Last Admin: 09/26/18 18:29 Dose: 3 ml Aspirin (Aspirin) 81 mg PO DAILY [facility] Last Admin: 09/27/18 09:28 Dose: Not Given Divalproex Sodium (Divalproex Sodium) 250 mg PO BIDMEALS [facility] Last Admin: 09/27/18 07:35 Dose: Not Given Gabapentin (Neurontin) 100 mg PO BID [facility] Last Admin: 09/27/18 09:29 Dose: Not Given Latanoprost (Xalatan 0.005% Ophth Soln) 0 ml EYERT BEDTIME [facility] Last Admin: 09/26/18 21:50 Dose: Not Given Lorazepam (Ativan Oral Concentrate 1mg/0.5 Ml U/D) 0.5 mg PO Q2H PRN PRN Reason: Agitation Last Admin: 09/27/18 10:25 Dose: 0.5 mg Losartan Potassium (Cozaar) 25 mg PO [facility] Last Admin: 09/27/18 09:28 Dose: Not Given Metoprolol Succinate (Toprol Xl) 25 mg PO [facility] Last Admin: 09/27/18 09:29 Dose: Not Given Mirabegron (Myrbetriq) 25 mg PO DAILY [facility] Last Admin: 09/27/18 09:29 Dose: Not Given Morphine Sulfate (Morphine 10 Mg/0.5 Ml Oral Syringe) 5 mg PO Q1H PRN PRN Reason: Pain Last Admin: 09/27/18 09:28 Dose: 5 mg Pantoprazole Sodium (Protonix) 40 mg PO ACBREAKFAST [facility] Last Admin: 09/27/18 07:35 Dose: Not Given Polyethylene Glycol (Miralax) 17 gm PO DAILY PRN PRN Reason: Constipation Sodium Chloride (Saline Flush) 10 ml FLUSH ASDIRECTED PRN PRN Reason: Keep Vein Open Timolol Maleate (Timoptic 0.5% Ophth Soln) 0 ml EYERT [facility] Last Admin: 09/27/18 09:29 Dose: Not Given Discontinued Medications Dextrose (Glutose 15) 15 gm PO ONETIME PRN PRN Reason: Hypoglycemia Dextrose/Water (Dextrose 50% In Water) 50 ml IVPUSH ONETIME ONE Stop: 09/25/18 15:09 Last Admin: 09/25/18 15:27 Dose: 50 ml Dextrose/Water (Dextrose 50% In Water) 50 ml IV ONETIME PRN PRN Reason: Hypoglycemia Last Admin: 09/25/18 21:42 Dose: 50 ml Dextrose/Water (Dextrose 50% In Water) Confirm Administered Dose 50 ml .ROUTE .STK-MED ONE Stop: 09/25/18 21:29 Last Admin: 09/25/18 22:18 Dose: Not Given Furosemide (Lasix) 40 mg IVPUSH NOW ONE Stop: 09/26/18 08:41 Last Admin: 09/26/18 08:52 Dose: 40 mg Haloperidol Lactate (Haldol) 2 mg IVPUSH ONETIME ONE Stop: 09/26/18 08:40 Last Admin: 09/26/18 08:48 Dose: 2 mg Haloperidol Lactate (Haldol) 2 mg IVPUSH Q2H PRN PRN Reason: Agitation Last Admin: 09/26/18 12:36 Dose: 2 mg Haloperidol Lactate (Haldol) 3 mg IVPUSH Q2H PRN PRN Reason: Agitation Last Admin: 09/26/18 16:40 Dose: 3 mg Hydromorphone HCl (Dilaudid) 0.5 mg IVPUSH ONETIME ONE Stop: 09/26/18 18:45 Last Admin: 09/26/18 19:29 Dose: 0.5 mg Sodium Chloride (Normal Saline) 1,000 mls @ 125 mls/hr IV ASDIRECTED [facility] Last Admin: 09/25/18 17:51 Dose: 125 mls/hr Dextrose/Sodium Chloride (Dextrose 5%-1/2 Ns) 1,000 mls @ 125 mls/hr IV ASDIRECTED [facility] Last Admin: 09/26/18 05:33 Dose: 125 mls/hr Sodium Chloride (Normal Saline) 1,000 mls @ 50 mls/hr IV ASDIRECTED [facility] Last Admin: 09/26/18 18:56 Dose: 50 mls/hr Insulin Human Lispro (Humalog) 0 unit SUBCUT QIDACANDBED [facility]; Protocol Last Admin: 09/26/18 21:47 Dose: Not Given Insulin Human Regular (Humulin R) 10 unit IVPUSH ONETIME ONE Stop: 09/25/18 15:08 Last Admin: 09/25/18 15:30 Dose: 10 units Lidocaine HCl (Xylocaine 2% Jelly) 10 ml MUCMEM ONETIME ONE Stop: 09/26/18 15:06 Last Admin: 09/26/18 15:08 Dose: 10 ml Lidocaine HCl (Xylocaine 2% Jelly) 10 ml MUCMEM ONETIME ONE Stop: 09/27/18 05:13 Last Admin: 09/27/18 05:29 Dose: 10 ml Ondansetron HCl (Zofran) 4 mg IV Q4H PRN PRN Reason: Nausea/Vomiting Sodium Chloride (Saline Flush) 10 ml FLUSH ASDIRECTED PRN PRN Reason: Keep Vein Open Last Admin: 09/25/18 15:26 Dose: 10 ml Sodium Polystyrene Sulfonate (Kayexalate) 30 gm RECTAL NOW ONE Stop: 09/25/18 15:44 Last Admin: 09/25/18 16:25 Dose: 30 gm Sodium Polystyrene Sulfonate (Kayexalate) 30 gm RECTAL NOW ONE Stop: 09/25/18 23:25 Last Admin: 09/26/18 00:07 Dose: 30 gm Sodium Polystyrene Sulfonate (Kayexalate) 30 gm RECTAL NOW ONE Stop: 09/26/18 06:14 Last Admin: 09/26/18 07:16 Dose: 30 gm Warfarin Sodium (Coumadin) 4 mg PO ASDIRECTED [facility] Warfarin Sodium (Coumadin) 2 mg PO TuSa@1300 [facility] Warfarin Sodium (Coumadin) 4 mg PO SuMoWe@1300 [facility] Warfarin Sodium (Coumadin) 4 mg PO ThFr@1300 [facility] Warfarin Sodium (Coumadin) 2 mg PO ONETIME ONE Stop: 09/26/18 13:01 Last Admin: 09/26/18 12:40 Dose: 2 mg *Q Meaningful Use (DIS) - VTE *Q VTE Pharmacological Contraindications *Q: High INR Value
== END 2018-09-27 10:58 | disposition expired | DRG 640 ==
LOC: JP.ED 13:00 → JP.MS 16:16
PROVIDERS: ADMIT Hospitalist; ATTEND Internal Medicine
DX: E87.5 Hyperkalemia (principal); J96.91 Respiratory failure, unspecified with hypoxia; I13.0 Hypertensive heart and chronic kidney disease with heart failure and stage 1 through stage 4 chronic kidney disease, or unspecified chronic kidney disease; Z66 Do not resuscitate; E86.0 Dehydration; R41.82 Altered mental status, unspecified; T40.2X5A Adverse effect of other opioids, initial encounter; E11.22 Type 2 diabetes mellitus with diabetic chronic kidney disease; N18.3 Chronic kidney disease, stage 3 (moderate); I10 Essential (primary) hypertension; M54.9 Dorsalgia, unspecified; G89.29 Other chronic pain; H54.7 Unspecified visual loss; I25.5 Ischemic cardiomyopathy; E87.2 Acidosis; I48.91 Unspecified atrial fibrillation; I25.10 Atherosclerotic heart disease of native coronary artery without angina pectoris; E11.649 Type 2 diabetes mellitus with hypoglycemia without coma; I72.9 Aneurysm of unspecified site; E11.9 Type 2 diabetes mellitus without complications; E78.00 Pure hypercholesterolemia, unspecified; I73.9 Peripheral vascular disease, unspecified; I65.21 Occlusion and stenosis of right carotid artery; I50.9 Heart failure, unspecified; J44.9 Chronic obstructive pulmonary disease, unspecified; I27.20 Pulmonary hypertension, unspecified; K21.9 Gastro-esophageal reflux disease without esophagitis; K44.9 Diaphragmatic hernia without obstruction or gangrene; R32 Unspecified urinary incontinence; I70.1 Atherosclerosis of renal artery; F01.50 Vascular dementia, unspecified severity, without behavioral disturbance, psychotic disturbance, mood disturbance, and anxiety; L30.9 Dermatitis, unspecified; I25.2 Old myocardial infarction; R06.02 Shortness of breath; R53.1 Weakness; R53.81 Other malaise; R41.0 Disorientation, unspecified; R53.83 Other fatigue; Z95.0 Presence of cardiac pacemaker; Z95.5 Presence of coronary angioplasty implant and graft; Z90.49 Acquired absence of other specified parts of digestive tract; Z79.899 Other long term (current) drug therapy; Z88.8 Allergy status to other drugs, medicaments and biological substances; Z79.01 Long term (current) use of anticoagulants; Z79.84 Long term (current) use of oral hypoglycemic drugs; Z79.82 Long term (current) use of aspirin; Z96.89 Presence of other specified functional implants; Z95.1 Presence of aortocoronary bypass graft; Z86.73 Personal history of transient ischemic attack (TIA), and cerebral infarction without residual deficits
CPT/HCPCS: 36415; 71045; 80053; 80305; 81001; 84132; 84484; 85025; 85610; 86140; 93005; 96374; 96375; 99285; A4216; J1815; 36600; 51701; 80048; 82803; 82947; 82962; 83605; 83735; 94640; 94762; A9270-GY; J1170; J1630; J1940; J7030; J7620-GY